=== PATIENT | female | born 1950 | race Caucasian/White ===

== ENCOUNTER → 2018-03-18 12:15 | Outpatient (CLI) | payer MEDICARE, OTHER, SELFPAY ==
--- NOTE | 2018-03-21 18:54 | DI.NM.S_ITS ---
DATE OF SERVICE: 03/18/2018 ORDERING PHYSICIAN: Alexa Morris DO PROCEDURE: Nuclear cardiac stress study. INDICATIONS: Ms. Kimble is a 67-year-old female anticipating hip surgery. Nuclear cardiac stress study is performed to exclude underlying ischemic heart disease in the setting of cardiac risk factors. STRESS TEST: This patient was able to exercise on a regular Ruddy protocol exercising for a total of 6 minutes and 30 seconds. She achieved her expected exercise capacity. Baseline EKG is unremarkable and no clear-cut diagnostic EKG changes of ischemia. PROCEDURE: This patient received 26.9 mCi of technetium-99 Myoview for the stress portion of the examination. She returned 3 days later for the resting portion of the examination receiving an additional 24.7 mCi technetium-99 Myoview. FINDINGS: Raw Data: Raw data images demonstrate overall good image quality. No significant source of artifact or interference. Quantitative Gated SPECT Imaging: Gated exam shows a normal size ventricle with an end-diastolic volume estimated at 73 cc. Overall ejection fraction of normal at 79% with no regional wall motion abnormalities noted. Quantitative Perfusion SPECT Imaging: Myocardial perfusion imaging shows a normal distribution of radioisotope throughout the myocardium. There are no perfusion abnormalities that would suggest ischemia or scar. IMPRESSION: Normal nuclear cardiac stress study. Ledy Kimble - ANNIE/ifrah/ doc#: [id number]/job#: [id number] dd: 03/21/2018 17:37:00 dt: 03/21/2018 18:31:00 DICTATING /COPIES TO: Gallito Ruiz MD COPIES MNE: RIGO
== END ==
PROVIDERS: Family Provider Family Medicine; PCP Family Medicine; Visit Provider Family Medicine
DX: Z01.810 Encounter for preprocedural cardiovascular examination (principal); Z82.49 Family history of ischemic heart disease and other diseases of the circulatory system
CPT/HCPCS: 78452; 93016; 93017; 93018; A9502

== ENCOUNTER → 2018-05-21 12:59 | Outpatient (CLI) | payer MEDICARE, OTHER, SELFPAY ==
[2018-05-21 13:43] LABS: Appearance Urine UA CLEAR; Bilirubin Urine UA NEGATIVE (NEGATIVE); Color Urine UA YELLOW; Glucose Urine UA NEGATIVE (Normal); Ketones Urine UA NEGATIVE (NEGATIVE); Leukocyte Esterase Urine UA NEGATIVE (NEGATIVE); Nitrite Urine UA Negative (Negative); Occult Blood Urine UA NEGATIVE (Negative); Protein Urine UA NEGATIVE (Negative); Specific Gravity Urine UA 1.015 (1.000-1.035); Urobilinogen Urine UA 0.2 E.U./dL (0.2)
[2018-05-21 13:46] LABS: Add Manual Diff / Slide Review NO; Basophils Percent Auto 0.6 % (0-2); Eosinophils Percent Auto 3.8 % (2-4); Hematocrit 43.4 % (36-46); Hemoglobin 15.2 g/dL (12.0-16.0); Lymphocytes Percent Auto 23.9 % (25-40); Mean Corpuscular Volume 94.2 fL (80-100); Monocytes Percent Auto 7.6 % (3-14); Neutrophils Absolute Auto 4300 /uL (3000-5900); Neutrophils Percent Auto 64.1 % (50-75); Platelet Count 232 X10^3/uL (150-400); Red Blood Cell Count 4.61 X10^6/uL (4.0-5.2); Red Cell Distribution Width 12.8 % (11.6-14.8); White Blood Cell Count 6.8 X10^3/uL (4.5-11.0)
[2018-05-21 13:54] LABS: BUN Creatinine Ratio 21.3 (6-22); Blood Urea Nitrogen 17 mg/dL (7-17); Calcium 10.7 mg/dL (8.4-10.2); Carbon Dioxide 33 mmol/L (22-32); Chloride 97 mmol/L (98-107); Estimated Glomerular Filt Rate > 60.0 mL/min (>60); Glucose 96 mg/dL (80-110); HEMOLYSIS < 15 (0-50); Potassium 4.2 mmol/L (3.4-5.1); Sodium 141 mmol/L (137-145)
[2018-05-21 14:14] LABS: Bacteria Urine Occasional (0-1); Hemoglobin A1C% w Est Avg Glu 5.3 % (4.0-6.0); RBC Urine 1-5/HPF (0-5/HPF); Squamous Epithelial Cell Urine 1-5 /HPF; WBC Urine 1-5/HPF (0-5/HPF)
== END ==
PROVIDERS: Family Provider Family Medicine; PCP Family Medicine; Visit Provider Orthopaedic Surgery
DX: Z01.812 Encounter for preprocedural laboratory examination (principal); N39.9 Disorder of urinary system, unspecified; R73.09 Other abnormal glucose
CPT/HCPCS: 36415; 80048; 81001; 83036; 85025; 93005; 93010

== ENCOUNTER 2018-06-03 06:11 | Inpatient (IN) | payer MEDICARE, OTHER, SELFPAY ==
[2018-05-05 09:58] VITALS: BMI 29.3
[2018-06-03] VITALS (19 sets, daily range): BP systolic 78–112; BP diastolic 41–68; PULSE 65–79; RESP 10–16; TEMP 36.1–37.1; O2SAT 92–100; BMI 27.1
[2018-06-03] MEDS: LACTATED RINGERS 1,000 ML 42 ML IV ×2 (06:45→10:34)
[2018-06-03] MEDS: VANCOMYCIN 1,000 MG/200 ML FROZ.PIGGY 200 MG IV (06:46)
[2018-06-03] MEDS: ACETAMINOPHEN 325 MG TABLET 975 MG PO ×3 (07:07→20:26)
[2018-06-03] MEDS: PREGABALIN 75 MG CAPSULE PO (07:08)
[2018-06-03] MEDS: MELOXICAM 7.5 MG TABLET 15 MG PO (07:11)
--- NOTE | 2018-06-03 07:27 | PM.PREOP ---
Pre-operative Note Interval Note Pre-op Check: Yes History & Physical Reviewed by Physician and Yes Exam Performed Changes: No
--- NOTE | 2018-06-03 07:28 | PM.OP.1 ---
Operative Date/Time/Diagnoses Date of procedure: 06/03/18 Time of procedure: 07:56 Pre-op diagnosis: right hip OA Post-op diagnosis: same Procedure & Clinicians Procedure: Right total hip arthroplasty Same procedure as scheduled: Yes Indications: The patient has had progressively worsening right hip pain with radiographic changes consistent with arthritis. Non-operative management has failed and the patient has requested total hip replacement. The risks, benefits and alternatives to surgery were discussed with the patient prior to proceeding. Risks discussed included, but were not limited to, failure to relieve pain, leg length discrepancy, dislocation, stiffness, infection, nerve damage, deep venous thrombosis, pulmonary embolism, stroke, coma, heart attack, permanent paralysis and , as well as the potential need for eventual revision of the prosthetic. Surgeon: Maria G Petty X Ray Tech: Renee Sherwood Anesthesia Type: General and Spinal Operative Notes Findings: severe right hip osteoarthritis, adequate stability Closure Type: primary Specimen(s): none sent Implants & Drains: Petty and Nephew anthology 7 SO, R3 52, +0 oxinium Estimated Blood Loss (mL): 300 Blood products transfused: none Procedure in detail: The patient was brought to the operating room. Patient was carefully positioned in the supine position. Time-out was performed and antibiotics were given. Anesthesia was induced. She was positioned in the on the table in order to allow hyperextension of the hip. Bilateral lower extremities were prepped and draped in a standard sterile fashion. An anterior incision was made 1 fingerbreadth lateral to the anterior superior iliac spine on the right hip and extended distally towards the greater trochanter. Dissection was carried out through skin and subcutaneous tissues. The skin and subcutaneous tissues were carefully injected with Marcaine with epi. Superficial hemostasis was achieved. The fascia over the tensor fascia pancho was defined and incised with a knife. Two Allis clamps were used to grasp the fascia. Tensor fascia pacnho was retracted laterally. A gelpi retractor was placed. Dissection was carried out down along the neck. The circumflex vessels were carefully identified and cauterized with the Aqua Mantis. There was good visualization of the femoral neck. A Cobra was placed superior to the neck and the gluteus fibers were carefully stripped from that superior aspect of the capsule. A 2nd retractor was placed along the inferior aspect of the neck. The rectus insertion along the capsule was released. A 3rd retractor that was then gently placed over the rim of the acetabulum under the rectus. Capsule was carefully incised and released from the intertrochanteric line circumferentially superior to the mid sagittal line and inferiorly to the mid sagittal line until the lesser trochanter was palpable. A tag stitch was placed both in the superior and inferior limb of the capsular insertion. Along the acetabulum capsule was also released up to the mid sagittal 12:00 position. Portion of the labrum was resected. A saw was used to perform an osteotomy at the level of the intertrochanteric line and the junction of the superior femoral neck leaving approximately 1 finger breath of residual inferior neck above the lesser trochanter. A 2nd cut was made along the femoral neck at the base of the head and a napkin ring of neck was removed. Corkscrew was placed in the femoral head and the head was removed without difficulty. Retractors were then repositioned around the acetabulum. Residual labrum was resected and additional osteophytes were removed. A Reamer that was 4 mm below the templated size was placed by hand in the acetabulum and it was reamed to centralize the acetabulum. Was then reamed up to 2 under the templated size fluoroscopy was brought in to confirm the position of the reaming and depth of reaming. I reamed 1 under the anticipated size and touch the rim with line to line reaming. A trial cup was placed and noted that it was appropriately sized and fluoroscopy confirmed position and depth. The component was open and inserted without difficulty fluoroscopic imaging was used to confirm that the cup had been adequately seated and was well positioned. Neutral poly liner was placed. The cup was tested and noted to be stable. Attention was then directed to the femur. The femur was gently hyperextended additional capsular release was performed as needed in order to allow adequate visualization of the proximal femur with elevation of the femur. Patient was placed in a hyperextended slightly abducted position with maximum external rotation. Box osteotome was used to check for any residual neck as well as sclerotic bone along the trochanter. [place] pepper was placed in the femur. Additional broaching was performed. Canal finer was used to determine the alignment of the canal and position. Size 1 broach was placed. The canal was then appropriately broached up to the templated size as long as there was adequate stability of the broach and serial advancement of the broach without excessive impingement. Specific attention was directed at avoiding varus attempting to direct the distal aspect of the approach more anteriorly and avoiding excessive anteversion. Trial reduction showed acceptable range of motion, good stability, no posterior impingement, pentecostal of leg length and appropriate lateral shuck. I also hyperflexed the hip and checked that there was no impingement anteriorly and there was good stability with flexion, abduction and internal rotation. Final neutral poly was placed without difficulty. Marcaine and Exparel were injected. The stem was placed without difficulty. Repeat trial reduction and x-ray showed acceptable overall position, length, and no evidence of the femoral fracture. Final head was placed. Wound was meticulously irrigated with normal saline. The hip was reduced and additional Exparel and Marcaine were injected. The capsule was closed with interrupted black braided nylon. The fascia of the tensor was closed with interrupted and running Vicryl. No drain was placed. Any tensor fascia pancho muscle that appeared to be contused or injured which was a minimal amount was carefully resected. Capsule around the tensor was injected with Exparel and Marcaine. The skin was closed with barbed stitches for the subcutaneous tissue and skin. We also used surgical glue. The wound was dressed sterilely. Brief Betadine soak was also used and was meticulously irrigated with normal saline. Patient was transferred to recovery room in satisfactory condition. Complications: none Condition: stable Disposition: Acute Care Plan for aftercare: The patient will be maintained on a standard total hip replacement protocol with weight bearing as tolerated and posterior hip precautions. The patient will receive aspirin and sequential compression devices for DVT prophylaxis. The patient will be discharged home when safe for the home environment.
[2018-06-03] MEDS: CEFAZOLIN 2 GM/100 ML FROZ.PIGGY IV ×2 (08:19→16:49)
[2018-06-03] MEDS: TRANEXAMIC ACID 1,000 MG VIAL 2000 MG INJ (08:20)
[2018-06-03] MEDS: BUPIVACAINE 0.25% W/ EPI VIAL 50 ML INJ (08:49)
[2018-06-03] MEDS: BUPIVACAINE LIPOSOME 266 MG/20 ML VIAL INJ (08:50)
[2018-06-03] MEDS: LIDOCAINE 1% W/EPI INJ 20 ML INJ (08:52)
--- NOTE | 2018-06-03 08:57 | SUR.OPER ---
Supine, head on pillow, torso on pink pad positioner. Iliac crest at flex of foot end of table. Gel roll under operative hip. Both arms secured on arm boards <90 degrees abduction.
--- NOTE | 2018-06-03 11:38 | DI.RAD.S_ITS ---
PROCEDURE: XR HIP W PEL IF DONE RT 2V INDICATIONS: RIGHT TOTAL HIP TECHNIQUE: AP pelvis and lateral view of the right hip acquired. COMPARISON: [facility], CR, [id number] W PEL IF PERFORMED, 01/21/2018, 11:23. FINDINGS: Bones: Patient is status post right hip arthroplasty, with hardware components in expected positions. The hip joint appears congruent. The visualized bony structures appear intact. Soft tissues: Overlying postoperative changes are noted. No suspicious soft tissue densities. IMPRESSION: Postop changes from right total hip arthroplasty with anatomic alignment. Dictated by: Clay Alfaro M.D. on 06/03/2018 at 13:40 Approved by: Clay Alfaro M.D. on 06/03/2018 at 13:40
[2018-06-03] MEDS: ONDANSETRON 4 MG/2 ML INJ IV (12:29)
[2018-06-03] MEDS: HYDROMORPHONE 2 MG INJ 0.5 MG IV ×2 (12:35→12:40)
[2018-06-03] MEDS: METOCLOPRAMIDE 10 MG/2 ML INJ IV (12:40)
[2018-06-03] MEDS: LACTATED RINGERS 500 ML 1000 ML IV (14:23)
[2018-06-03] MEDS: LACTATED RINGERS 1,000 ML 125 ML IV ×2 (14:24→22:49)
[2018-06-03] MEDS: OXYCODONE IR 5 MG TABLET PO ×2 (14:29→21:52)
[2018-06-03] MEDS: HYDROMORPHONE 2 MG TABLET PO ×3 (15:30→22:50)
--- NOTE | 2018-06-03 15:31 | PC.NURSE ---
Pts bp dropped to 78/50s. Called and Dr. Soriano gave orders for LR bolus of 500cc. Pts blood pressure then up to 103/56. She is A&ox3 and states pain is a 9/10. Pt was extremely groggy after coming from PACU and with BP being low, this RN discussed pain manangement with Coordinator and we decided that it would be best to wait until patient was more awake and bp up before giving her any narcotics. Pt was given 5mg of oxycodone about an hour ago and she states that this did not help her. Ángela PEREZ into see patient and she is working on giving pt some other pain medication as oxycodone does not seem to be helping her. Dressing to R.knee is cdi and pt has feeling to her whole leg. She is also on LR at 125cc/hr and tolerating fluids well. Pt was initially having nausea earlier in pacu and was given compazine. She tolerated crackers and her water. Gave the percolone to patient and she did tolerate well. Luisa PEREZ float, called and got orders for dialaudid and she has been given this. at bedside.
--- NOTE | 2018-06-03 16:56 | PT.IIE ---
Current Diagnoses Unilateral primary osteoarthritis, right hip (06/03/18) Surgery Performed Operation Date: 06/03/18 07:45 Actual Procedures p Total Hip Arthroplasty/Anterior Approach(Right) - Maria G Petty MD Surgical History (Last Updated 05/05/18 @ 10:10 by Velia Diehl RN) S/P cervical spinal fusion (Acute) History of spinal fusion (03/17/17) History of tonsillectomy Status post hysterectomy Status post rotator cuff repair Medical History (Last Updated 05/03/18 @ 08:52 by Alexa Morris DO) Internal hemorrhoids without complication (Chronic) Diverticulosis of colon without diverticulitis (Chronic) Mild intermittent asthma without complication (Chronic 09/27/15) Bipolar disorder in full remission (Inactive 08/02/15) Herpes simplex of female genitalia (Inactive 08/02/15) Obstructive sleep apnea syndrome in adult (Chronic 2004) Body mass index (BMI) of 25.0 to 29.9 (Chronic 11/11/15) Left ventricular diastolic dysfunction with preserved systolic function (Chronic 11/11/15) Mixed hyperlipidemia (Chronic 11/04/16) Insomnia, persistent (Inactive) Physical Therapy Inpatient Evaluation/Re-Eval M1 PT/OT-IP Prior Functional Status Start: 06/03/18 17:46 Freq: NEEDED Status: Active Protocol: Document 06/03/18 16:56 AB (Rec: 06/03/18 18:01 AB [id number]) Medical Review Prior Functional Status Medical History Reviewed Yes Communication able to make needs known Mobility and Gait stated that she is modified independent with all mobilities and ambulation wihtout AD Social History Household Members spouse Living Arrangements House Number of Floors (Floors) One Floor Number of Stairs To Enter/Railing? 2 steps to enter with bilateral wide rails and can only hold on to one at a time Home Environment High Toilet Walk in Shower Built-In Shower Seat Home Equipment Front Wheel Walker Straight Cane Raised Toilet Seat w/Armrests Grab Bars In Shower Employment Status Retired M2 PT-IP Current Condition Start: 06/03/18 17:46 Freq: NEEDED Status: Active Protocol: Document 06/03/18 16:56 AB (Rec: 06/03/18 18:01 AB [id number]) Physical Therapy Current Condition Current Condition Evaluation Date 06/03/18 Treatment Diagnosis s/p R KENY Onset Date 06/03/18 Weight Bearing Status Weight Bearing Status Weight Bear as Tolerated M3 PT-IP Subjective Start: 06/03/18 17:46 Freq: NEEDED Status: Active Protocol: Document 06/03/18 16:56 AB (Rec: 06/03/18 18:01 [id number]) Subjective Physical Therapy Visit Type Type Initial Evaluation Visit Start Time 16:56 Visit Stop Time 17:36 Total Visit Minutes 40 Notes reviewed pt's chart and per doctor's surgery note, pt has r posterior hip precautions but on plan of care: anterior hip precautions ordered. informed nurse to clarify with doctor and nurse stated that pt definitely has anterior KENY done. Number of PEDIATRIC ALLERGIST Visits 0 Physical Therapy Visit Comments Patient Comments pt initially not feeling well and nurse stated that pt has decrease BP and c/o increase pain and drowsy. checked on pt again after ~ 45 min and pt stated that she is feeling better and agreed to get out of bed. Therapy Pain Assessment Pain When Pain Assessed At Rest Pain Present Pain Present Pain Reported Location Right Hip Intensity 5 Scale Used Numeric (1 - 10) Pain Management Techniques Apply Cold Re-positioning Timing of Activity with Medications M4 PT-IP Mobility and Gait Start: 06/03/18 17:46 Freq: NEEDED Status: Active Protocol: Document 06/03/18 16:56 AB (Rec: 06/03/18 18:01 [id number]) PT-Bed Mobility Assessment Supine to Sit Supine to Sit Minimal Assistance Sit to Supine Sit to Supine Minimal Assistance Moderate Assistance PT-Transfer Assessment Comments Mobility Comments BP in supine: 107/51 pt completed supine to sit min A and cues. pt positioned on EOB. pt with c/o feeling queasy. pt sat on EOB for~ 20 sec and stated that she has to lie down. BP in sitting on EOB: 85/63 GA 139. assisted pt back in bed requiring min to mod A and cues. pt required assistance to move RLE in bed. BP in supine: 118/57 GA 65 O2 sa 97% . pt unable to tolerate further activities. positioned pt in bed with dinner. informed nurse. call light and table set up for pt. PT-Balance Assessment Sitting Balance and Reactions Static Sitting Balance Ability Good Dynamic Sitting Balance Ability Good M5 PT-IP Objective Assessments Start: 06/03/18 17:46 Freq: NEEDED Status: Active Protocol: Document 06/03/18 16:56 AB (Rec: 06/03/18 18:01 AB [id number]) Orientation Orientation/Cognition Level of Alertness Alert Orientation Name Age Birthday Month Date Year Day of Week Place Situation Safety Awareness Decreased Safety Awareness Memory Description Short Term Impaired Gross Range of Motion Lower Extremity ROM Assessment Right Impaired Strength Lower Extremity Strength Assessment Right Impaired Hip 3-/5 Muscle Tone Muscle Tone WNL Yes M6 PT-IP Treatment Start: 06/03/18 17:46 Freq: NEEDED Status: Active Protocol: Document 06/03/18 16:56 AB (Rec: 06/03/18 18:01 AB [id number]) Physical Therapy Treatment Education Education Provided Precautions Weight Bearing Status Post-Op Packet Safety M7 PT-IP Assessment and Plan Start: 06/03/18 17:46 Freq: NEEDED Status: Active Protocol: Document 06/03/18 16:56 AB (Rec: 06/03/18 18:01 AB [id number]) PT Summary Assessment and Plan Potential Rehabilitation Potential Fair Status of Condition at Evaluation Evolving Summary Impairments Pain ROM Strength Balance Coordination Sensation Tone Cognition Bed Mobility Transfers Gait Activity Tolerance Assessment Summary pt requiring one person assist with bed mobility; unable to complete transfer or ambulation due to c/o dizziness and queasiness. d/c plan depending on progress and if spouse will be able to provide the assistance pt needs. will continue to assess. Goals Bed Mobility Goal Standby Assistance Transfer Goal Standby Assistance Gait Goal Standby Assistance Gait Distance 100 Other Goals up/down 2 steps using 1 rail Days to Meet Goals 3 Frequency of Treatment Frequency Of Treatment Twice a Day Treatment Plan Physical Therapy Treatment Plan Bed Mobility Training Transfer Training Gait Training Therapeutic Exercise Balance Retraining Post Op Education Discharge Planning Hot or Cold Pack Neuromuscular Re-ed Coordination Retraining Manual Therapy Recommendations To Nursing Amount of Assist Needed 2 Person Assist Discharge Recommendations PT Discharge Recommendations Home with Assistance Outpatient PT
[2018-06-03] MEDS: NAPROXEN 250 MG TABLET PO (20:25)
[2018-06-03] MEDS: ASPIRIN EC 81 MG TABLET PO (20:25)
[2018-06-03] MEDS: SIMVASTATIN 10 MG TABLET PO (20:25)
[2018-06-03] MEDS: DOCUSATE 100 MG CAPSULE PO (20:26)
[2018-06-03] MEDS: diphenhydrAMINE 25 MG TABLET 50 MG PO (20:26)
[2018-06-04] VITALS (7 sets, daily range): BP systolic 99–114; BP diastolic 47–55; PULSE 76–89; RESP 16–22; TEMP 36.5–37.2; O2SAT 92–98
[2018-06-04] MEDS: OXYCODONE IR 5 MG TABLET PO ×2 (00:55→05:01)
[2018-06-04] MEDS: CEFAZOLIN 2 GM/100 ML FROZ.PIGGY IV (00:56)
[2018-06-04] MEDS: HYDROMORPHONE 2 MG TABLET PO ×4 (02:22→22:39)
[2018-06-04] MEDS: ONDANSETRON 4 MG/2 ML INJ IV (03:12)
[2018-06-04] MEDS: ACETAMINOPHEN 325 MG TABLET 975 MG PO ×3 (05:06→20:52)
[2018-06-04 05:25] LABS: Hematocrit 29.7 % (36-46); Hemoglobin 10.5 g/dL (12.0-16.0)
--- NOTE | 2018-06-04 05:31 | PC.NURSE ---
assumed care of pt from outgoing shift at 2300 8-24. Pt asleep. does want to be woken up for pain med administration. see DEC. bed alarm on, side rails upx3. belongings and call light within reach. will continue to monitor 0030- pt woken, needing to toilet, will give pain med when due. antibiotic hung and infusing, no adr. Pt compliant. pt needs help moving leg over off bed, but is able to stand, uses walker without difficulty. states pain is well controlled and wants to stay on top of it. Pt stated that she knows the already has the oxycodone at home, but wonders if she could get the Dilaudid as well as that really helps take the pain away quickly. Pt told to discuss with MD. will pass on. Pt does use call light and waits for assistacne. ice aplied to site. see assessment. Pt scd on. pt ate snack with pain med. will continue to monitor. 0230- pt given pain med. stated pain was higher than usually but not terrible. 0315- pt complaining of nausea, given zofran IV. will reassess. 0330- pt stated nausea was gone and felt better. pt on cpap, allowed to fall back to sleep. 0500- pt called for pain med and toileting. will continue to monitor.
--- NOTE | 2018-06-04 08:43 | P.PN_ITS ---
Subjective Date Patient Seen: 06/04/18 Time Patient Seen: 07:22 Interval history: Post op day 1 status post Right total hip arthroplasty with Dr. Petty. Patient is laying in bed comfortably without any signs of distress. Patients reports her pain is a 4/10. She is being managed with 2mg Dilaudid and 5mg Percolone. Patient would like more pain meds at this time. Patient reports being mobilized with PT however she has not ambulated outside of the room. Patient reports she is eager to go home once she has been able to walk the halls. is home to assist her. Patient denies fever, chills, vomiting, chest pain or respiratory distress. Overall, patient reports that she is feeling much better compared to yesterday. Exam Vital Signs (past 8 hours): - 06/04/18 03:15 06/04/18 08:16 Temperature 97.7 F 97.9 F Pulse Rate 76 79 Respiratory Rate 18 16 Blood Pressure 99/50 L 110/54 L Pulse Oximetry 95 98 Oxygen Delivery Method CPAP Oxygen Flow Rate 0 Narrative Exam Narrative: Patient is AOx3. Patient appears as a well developed woman in no acute distress. R hip dressing is CDI. Dorsalis pedis and radial pulses are 2 + and symmetric. Sensation to LE intact to light touch bilaterally and muscle strength is adequate. No signs of neurological deficit noted. Calfs are non tender, soft and compressible bilaterally Objective Labs Result Diagrams: 06/04/18 05:06 Labs: Laboratory Results - last 24 hr 06/04/18 05:06 Hgb 10.5 L Hct 29.7 L Assessment & Plan Post-op Postoperative Procedures Operation Date: 06/03/18 07:45 Actual Procedures Side Surgeon p Total Hip Arthroplasty/Anterior Approach Right Maria G Petty MD Postoperative day: 1 Postoperative status: doing well Postoperative plan: routine post-op care and ambulate Postoperative plan narrative: Continue mobilizing and ambulating with PT. Remain on standard total hip replacement protocol with weight bearing as tolerated and posterior hip precautions. Continue with DVT prophylaxis. Patient would like to go home later today pending cleared by PT. Discontinue percolone and increase Dilaudid from 2mg to 4mg for pain management. Time Spent With Patient less than 15 minutes Quality VTE Deep Vein Thrombosis/Pulmonary Embolism Present on Admission: No
[2018-06-04] MEDS: HYDROMORPHONE 2 MG TABLET 4 MG PO (08:47)
[2018-06-04] MEDS: DOCUSATE 100 MG CAPSULE PO ×2 (08:49→20:52)
[2018-06-04] MEDS: FISH OIL 1,000 MG CAPSULE 1000 MG PO (08:49)
[2018-06-04] MEDS: ASPIRIN EC 81 MG TABLET PO ×2 (08:49→20:52)
[2018-06-04] MEDS: SODIUM CHLORIDE 0.9% FLUSH 10 ML IV ×2 (08:49→20:52)
--- NOTE | 2018-06-04 09:15 | PT.IPTN ---
Current Diagnoses Unilateral primary osteoarthritis, right hip (06/03/18) Surgery Performed Operation Date: 06/03/18 07:45 Actual Procedures p Total Hip Arthroplasty/Anterior Approach(Right) - Maria G Petty MD Physical Therapy Treatment Note M2 PT-IP Current Condition Start: 06/03/18 17:46 Freq: NEEDED Status: Active Protocol: Document 06/03/18 16:56 AB (Rec: 06/03/18 18:01 AB [id number]) Physical Therapy Current Condition Current Condition Evaluation Date 06/03/18 Treatment Diagnosis s/p R KENY Onset Date 06/03/18 Weight Bearing Status Weight Bearing Status Weight Bear as Tolerated M3 PT-IP Subjective Start: 06/03/18 17:46 Freq: NEEDED Status: Active Protocol: Document 06/04/18 09:15 AB (Rec: 06/04/18 11:33 AB [id number]) Subjective Physical Therapy Visit Type Type Treatment Note Visit Start Time 09:15 Visit Stop Time 11:07 Total Visit Minutes 25 Notes pt was seen for split tx due to BP issues 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 Physical Therapy Visit Comments Patient Comments pt agreeable to do therapy; requested to use the toilet Therapy Pain Assessment Pain When Pain Assessed At Rest Pain Present Pain Present Pain Reported Location Right Hip Intensity 7 Scale Used Numeric (1 - 10) Pain Management Techniques Apply Cold Re-positioning Timing of Activity with Medications M4 PT-IP Mobility and Gait Start: 06/03/18 17:46 Freq: NEEDED Status: Active Protocol: Document 06/04/18 09:15 AB (Rec: 06/04/18 11:33 AB [id number]) PT-Transfer Assessment Sit to and From Stand Sit to and from Stand Minimal Assistance Equipment Transfer Assistive Device Gait Belt Front Wheeled Walker Orthotic/Prosthetic Devices or Brace: No Transfers Transfer Destination Chair Transfer Technique Stand Step Pivot Transfer Ability Level of Assist Minimal Assistance Comments Mobility Comments checked on pt this morning and requesting to use bedside commode. BP checked in supine : R arm: 85/47 K arnL 107/44. informed nurse. pt educated on safety. Checked on pt again and pt transferring with NAC to bedside commode. pt c/o dizziness sitting bedside commode. BP: 117/60. Assist pt out of the commode requiring min A with sit to stand and completed step transfer using FWW min A and cues. pt c/o dizziness and nausea during transfers. BP checked after transfer. BP sitting on chair: 98/51. checked BP again after 3 min: 99/51. pt continues to c/o dizziness and nausea. reclined and positioned pt on chair. BP at end of tx session : 111/50. call light and table placed within reach. informed nurse regarding BP. Gait Assessment Comments Gait Comments unable to ambulate at this time due to decrease in BP and c/o dizziness and nausea with transfers. M5 PT-IP Objective Assessments Start: 06/03/18 17:46 Freq: NEEDED Status: Active Protocol: Document 06/03/18 16:56 AB (Rec: 06/03/18 18:01 AB [id number]) Orientation Orientation/Cognition Level of Alertness Alert Orientation Name Age Birthday Month Date Year Day of Week Place Situation Safety Awareness Decreased Safety Awareness Memory Description Short Term Impaired Gross Range of Motion Lower Extremity ROM Assessment Right Impaired Strength Lower Extremity Strength Assessment Right Impaired Hip 3-/5 Muscle Tone Muscle Tone WNL Yes M6 PT-IP Treatment Start: 06/03/18 17:46 Freq: NEEDED Status: Active Protocol: Document 06/04/18 09:15 AB (Rec: 06/04/18 11:33 AB [id number]) Physical Therapy Treatment Education Education Provided Precautions Weight Bearing Status Post-Op Packet Safety M7 PT-IP Assessment and Plan Start: 06/03/18 17:46 Freq: NEEDED Status: Active Protocol: Document 06/04/18 09:15 AB (Rec: 06/04/18 11:33 AB [id number]) PT Summary Assessment and Plan Potential Rehabilitation Potential Fair Summary Impairments Pain ROM Strength Balance Cognition Bed Mobility Transfers Gait Activity Tolerance Progress Towards Goals Slow Progress due to Medical Issues Assessment Summary pt requiring one person assist with transfers. continues to have decrease activity tolerance with decrease in BP with upright activities affecting mobility/ambulation. will continue to assess pt but at this time has not shown consistency with mobility function to be able to go home . Goals Bed Mobility Goal Standby Assistance Transfer Goal Standby Assistance Gait Goal Standby Assistance Gait Distance 100 Other Goals up/down 2 steps using 1 rail Days to Meet Goals 3 Frequency of Treatment Frequency Of Treatment Twice a Day Treatment Plan Physical Therapy Treatment Plan Bed Mobility Training Transfer Training Gait Training Therapeutic Exercise Balance Retraining Post Op Education Discharge Planning Hot or Cold Pack Neuromuscular Re-ed Coordination Retraining Manual Therapy Recommendations To Nursing Amount of Assist Needed 1 Person Assist Discharge Recommendations PT Discharge Recommendations Home with Assistance Outpatient PT
[2018-06-04] MEDS: LACTATED RINGERS 500 ML 1000 ML IV (09:42)
[2018-06-04] MEDS: ONDANSETRON 4 MG ODT PO (10:33)
--- NOTE | 2018-06-04 12:04 | P.DS_ITS ---
History of Present Illness Chief complaint: [id number] Narrative: Patient was scheduled to be discharged on 06/04/18 however due to nausea and light headedness patient was held over night. Patient was stable and ready for discharge on 06/05/18. Post op day 1 status post Right total hip arthroplasty with Dr. Petty. Patient is laying in bed comfortably without any signs of distress. Patients reports her pain is a 4/10. She is being managed with 2mg Dilaudid and 5mg Percolone. Patient would like more pain meds at this time. Patient reports being mobilized with PT however she has not ambulated outside of the room. Patient reports she is eager to go home once she has been able to walk the halls. is home to assist her. Patient denies fever, chills, vomiting, chest pain or respiratory distress. Overall, patient reports that she is feeling much better compared to yesterday. Discharge Providers Date of admission: 06/03/18 06:11 Primary care physician: Alexa Morris DO Consults: 06/03/18 13:45 Consult to Discharge Planning Routine Comment: Consult to Physical Therapy Evaluate & Treat Comment: oob today Physician Instructions: post op KENY protocol Consult to Respiratory Therapy Evaluate & Treat Comment: Physician Instructions: Evaluate and treat 06/04/18 10:28 Consult to Occupational Therapy Evaluate & Treat Comment: Physician Instructions: Evaluate and treat Discharge provider: Alison Gudino PA-C Summary Discharge Diagnosis: Right total hip arthroplasty Hospital Course: Patient admitted to hospital for the above mentioned procedure. Patient tolerated procedure well. Pain is well managed. Patient is home to assist her. Status at Discharge Functional status at discharge: uses cane/walker Overall status at discharge: patient is progressing back to baseline Time Spent with Patient Less than 30 minutes Exam Vital Signs (past 8 hours): - 06/04/18 08:16 Temperature 97.9 F Pulse Rate 79 Respiratory Rate 16 Blood Pressure 110/54 L Pulse Oximetry 98 Oxygen Delivery Method CPAP Oxygen Flow Rate 0 Narrative Exam Narrative: Patient is AOx3. Patient appears as a well developed woman in no acute distress. R hip dressing is CDI. Dorsalis pedis and radial pulses are 2 + and symmetric. Sensation to LE intact to light touch bilaterally and muscle strength is adequate. No signs of neurological deficit noted. Calfs are non tender, soft and compressible bilaterally Objective Labs Result Diagrams: 06/05/18 05:06 Labs: Laboratory Results - last 24 hr 06/04/18 05:06 Hgb 10.5 L Hct 29.7 L Discharge Plan Discharge Plan Patient Disposition: Home Discharge comment: home today Discharge Med Rec/Prescriptions Prescriptions: New polyethylene glycol 3350 17 gram Powder In Packet 17 gm PO DAILY PRN (Reason: Constipation) Qty: 30 RF: 0 aspirin 81 mg Tablet,Delayed Release (Dr/Ec) 81 mg PO BID Qty: 60 RF: 0 hydromorphone 2 mg Tablet 2 mg PO Q4HR PRN (Reason: Pain, Moderate (4-6)) Qty: 40 RF: 0 ferrous sulfate 325 mg (65 mg iron) Tablet 325 mg PO BIDWM Qty: 60 RF: 0 Continue simvastatin 10 MG tablet 10 mg PO HS Qty: 90 RF: 3 estradiol [Estrace] 0.01 % (0.1 mg/gram) cream 1 gram Vaginal 2XW Qty: 1 RF: 6 albuterol sulfate [Ventolin HFA] 90 mcg/actuation Hfa Aerosol Inhaler 2 puff INHALATION Q4-6H PRN (Reason: exercised induced asthma) RF: 0 diphenhydramine-acetaminophen [Tylenol PM Extra Strength] 25-500 mg Tablet 2 tab PO BEDTIME RF: 0 naphazoline-pheniramine [Opcon-A] 0.33263-1.315 % Drops 1 drp EYE-BOTH PRN PRN (Reason: allergies) RF: 0 naproxen sodium 220 mg Capsule 220 mg PO BEDTIME RF: 0 aspirin 81 mg Tablet,Delayed Release (Dr/Ec) 81 mg PO DAILY RF: 0 omega 9-kfg-pji-fish oil [Fish Oil] 1,000 mg (120 mg-180 mg) Capsule 1 tab PO DAILY RF: 0 bfjtxnan-hwn-himdu acid-vit K [Multi For Her 50 Plus] 400-80 mcg Capsule 1 tab PO DAILY RF: 0 Follow up/Referrals: Alexa Morris DO [Primary Care Provider] - Provider Discharge Instructions Diet: Diet as Tolerated Activity: maintained on a standard total hip replacement protocol with weight bearing as tolerated and anterior hip precautions Cold/Heat Therapy: ice 3 times or more per day Skin/Wound/Dressing Care Report to your healthcare provider any signs of infection, such as:: chills, fever, night sweats, increased pain and unusual drainage Dressing: Keep dressing clean and dry. Visit Report/Discharge Packet Instructions: DI for Hip Replacement Visit Report Forms: Stroke Signs & Symptoms Discharge Data Primary Care Provider: Alexa Morris Attending Provider: Maria G Petty Admit Date/Time: 06/03/18 06:11 Discharges patient from system. Discharge Date/Time: 06/05/18 14:45 Quality VTE Deep Vein Thrombosis/Pulmonary Embolism Present on Admission: No
--- NOTE | 2018-06-04 12:37 | CM.DANOTE ---
Discharge Planning/Care Management DCP: assessment: case received, EMR reviewed and met this morning with pt and her . Introduced self and role. Pt is a 67 year old female who admitted yesterday for a planned KENY. Surgeon: Dr. Katlyn Petty Payer: Medicare and [employer]. PT and OT are seeing pt. Pt confirmed that her plan is for home with her 's prn support and OUTPT PT. Ortho team did see her later in day and wrote a d/c to home order. Conferred now with ANA James. She reports (as does PT) that pt having ongoing issues with dizziness, nausea and low BP. Pt is post op day one. The d/c for today has now been cancelled. Will check in again tomorrow prn...anticipating that pt will be fine for d/c to home once her medical symtoms are controlled and she is able to work a bit more with therapy. CM Discharge Assessment Start: 06/04/18 12:34 Freq: Status: Active Protocol: Document 06/04/18 12:34 ITV (Rec: 06/04/18 12:37 ITV [id number]) Discharge Planning Assessment Advance Directives? Yes Advance Directives on File No History Provided By Patient Family Member Medical Record Prior Living Arrangements House Household Members spouse Comment pt here to be part of caregiver training Independent with ADL's Yes Is patient alert and oriented? Yes Comment pt has all dme in place...I planned well for this surgery Patient/Family Preference OP PT Therapy Comment pt has appt next Wednesday with local PT clinic. will see Joe Flores PT Whiteboard Updated in Patient Room with Yes name and ext. # of [employer] Analyst Review Status In Process Next Review Type Continued Stay Review
--- NOTE | 2018-06-04 12:42 | OT.IP.TRT ---
Current Diagnoses Unilateral primary osteoarthritis, right hip (06/03/18) Surgery Performed Operation Date: 06/03/18 07:45 Actual Procedures p Total Hip Arthroplasty/Anterior Approach(Right) - Maria G Petty MD Occupational Therapy Treatment Note M3 OT- IP Subjective and Pain Start: 06/04/18 12:39 Freq: Status: Active Protocol: Document 06/04/18 12:39 [facility] (Rec: 06/04/18 12:42 [facility] [id number]) OT- Subjective Occupational Therapy Visit Type Type Treatment Note Visit Start Time 12:20 Visit Stop Time 12:35 Total Visit Minutes 15 Notes Pt feeling nauseous and BP 115 /46 while lying back in recliner and then sitting up 107/71. Able to answer questions regarding ADL needs, pt has all OT AED , and supportive . Pt to go home when medically stable.
--- NOTE | 2018-06-04 12:47 | PC.NURSE ---
Pt will not be discharging home today as she is still having some nausea and low bp. We will try 2mg of po dilaudid only per leighton Gudino to see if this helps keep bp up. PA wondering if 4mg of dilaudid making pressures lower. She is A&ox3 and moving with 1PA to commode. Visiting with now.
--- NOTE | 2018-06-04 14:00 | PT.IPTN ---
Current Diagnoses Unilateral primary osteoarthritis, right hip (06/03/18) Surgery Performed Operation Date: 06/03/18 07:45 Actual Procedures p Total Hip Arthroplasty/Anterior Approach(Right) - Maria G Nascimento MD Physical Therapy Treatment Note M2 PT-IP Current Condition Start: 06/03/18 17:46 Freq: NEEDED Status: Active Protocol: Document 06/04/18 14:00 AB (Rec: 06/04/18 14:59 AB [email or web address]) Physical Therapy Current Condition Current Condition Evaluation Date 06/03/18 Treatment Diagnosis s/p R KENY Onset Date 06/03/18 Precautions Anterior Hip Precautions No Hip Extension No Hip External Rotation Other Precautions clarified again with PA and PA clarified with Dr. nascimento that pt has anterior hip precautions. Weight Bearing Status Weight Bearing Status Weight Bear as Tolerated M3 PT-IP Subjective Start: 06/03/18 17:46 Freq: NEEDED Status: Active Protocol: Document 06/04/18 14:00 AB (Rec: 06/04/18 14:59 AB [email or web address]) Subjective Physical Therapy Visit Type Type Treatment Note Visit Start Time 14:00 Visit Stop Time 14:36 Total Visit Minutes 36 Number of MANAGEMENT PROFESSOR Visits 0 Physical Therapy Visit Comments Patient Comments Pt agreeable to do PT Therapy Pain Assessment Pain When Pain Assessed At Rest Pain Present Pain Present Pain Reported Location Right Hip Intensity 7 Scale Used Numeric (1 - 10) Pain Management Techniques Apply Cold Re-positioning Timing of Activity with Medications M4 PT-IP Mobility and Gait Start: 06/03/18 17:46 Freq: NEEDED Status: Active Protocol: Document 06/04/18 14:00 AB (Rec: 06/04/18 14:59 AB [email or web address]) PT-Bed Mobility Assessment Supine to Sit Supine to Sit Standby Assistance Bedrails Sit to Supine Sit to Supine Minimal Assistance PT-Transfer Assessment Sit to and From Stand Sit to and from Stand Minimal Assistance Moderate Assistance Equipment Transfer Assistive Device Gait Belt Front Wheeled Walker Orthotic/Prosthetic Devices or Brace: No Transfers Transfer Destination Bed Bedside Commode Transfer Technique Stand Step Pivot Transfer Ability Level of Assist Minimal Assistance 1 Person Assistance Use of Upper Extremities Comments Mobility Comments BP monitored during activity. supine at start of tx: 114/52. pt completed supine to sit SBA but used bed rails to assist. pt was able to sit on EOB for ~ 4 min with c/o dizziness. BP after 2 min of sitting on EOB: 109/50. Pt completed sit to stand mod A and cues and stood up for ~2 min with c/o dizziness. BP in standin/51. pt instructed to sit back down. pt rested and requested to use the commode. BP after 2 min rest: 101/44. Assisted pt with bedside commode transfer and completed min to mod A and cues using FWW. BP sitting on commode prior to transfer back to bed: 103/46. pt transferred back to bed stand step transfer using FWW min to mod A and cues. pt completed bed mobility supine to sit min A and pt used safety belt to assist with RLE movement. positioned pt in bed. BP in supine at end of tx: 103/54. informed nurse. pt continues to c/o dizziness and nausea with change in position. M5 PT-IP Objective Assessments Start: 06/03/18 17:46 Freq: NEEDED Status: Active Protocol: Document 06/03/18 16:56 AB (Rec: 06/03/18 18:01 AB [id number]) Orientation Orientation/Cognition Level of Alertness Alert Orientation Name Age Birthday Month Date Year Day of Week Place Situation Safety Awareness Decreased Safety Awareness Memory Description Short Term Impaired Gross Range of Motion Lower Extremity ROM Assessment Right Impaired Strength Lower Extremity Strength Assessment Right Impaired Hip 3-/5 Muscle Tone Muscle Tone WNL Yes M6 PT-IP Treatment Start: 06/03/18 17:46 Freq: NEEDED Status: Active Protocol: Document 06/04/18 14:00 AB (Rec: 06/04/18 14:59 AB [email or web address]) Physical Therapy Treatment Education Education Provided Safety M7 PT-IP Assessment and Plan Start: 06/03/18 17:46 Freq: NEEDED Status: Active Protocol: Document 06/04/18 14:00 AB (Rec: 06/04/18 14:59 AB [email or web address]) PT Summary Assessment and Plan Potential Rehabilitation Potential Fair Summary Impairments Pain ROM Strength Balance Tone Cognition Bed Mobility Transfers Gait Activity Tolerance Progress Towards Goals Slow Progress due to Medical Issues Assessment Summary pt continues to be limited with mobility with c/o dizziness and nausea with change in position and decrease in BP with more upright activities. pt unable to tolerate much activity and unable to ambulate at this time but was able to transfer bed<>bedside commode. will continue to assess pt's mobility for d/c plan. Goals Bed Mobility Goal Standby Assistance Transfer Goal Standby Assistance Gait Goal Standby Assistance Gait Distance 100 Other Goals up/down 2 steps using 1 rail Days to Meet Goals 3 Frequency of Treatment Frequency Of Treatment Twice a Day Treatment Plan Physical Therapy Treatment Plan Bed Mobility Training Transfer Training Gait Training Therapeutic Exercise Balance Retraining Post Op Education Discharge Planning Hot or Cold Pack Neuromuscular Re-ed Coordination Retraining Manual Therapy Recommendations To Nursing Amount of Assist Needed 1 Person Assist Discharge Recommendations PT Discharge Recommendations Home with Assistance Outpatient PT
[2018-06-04] MEDS: SIMVASTATIN 10 MG TABLET PO (20:52)
[2018-06-04] MEDS: NAPROXEN 250 MG TABLET PO (20:52)
[2018-06-04] MEDS: diphenhydrAMINE 25 MG TABLET 50 MG PO (20:52)
--- NOTE | 2018-06-05 01:17 | PC.NURSE ---
Addendum entered by Arti Pettit R.N. 06/05/18 04:02: 0355- pt awake, asking for pain meds. given. crackers and water also given. will continue to monitor. Original Note: Assumed care of pt from outgoing shift at 2300 8-25. PT asleep at this time. cpap on, call light and belongings within reach. will continue to monitor. 2320- pt awake, vss - bp has been low, but consistently in 100 systolic. Pt stated pain was 2/10. discussed pain med options and plan for noc. pt verbalized understanding. Pt uses call light. waits for assistance. 0100- Pt up to br to void, then sitting up in chair. Pt did very well with ambulation. Pt had minimal pain. denies sob.nausea. Pt uses call light. belongings and call light within reach. will continue to monitor.
[2018-06-05 03:00] VITALS: BP 112/59; PULSE 72; RESP 18; TEMP 36.8; O2SAT 98
[2018-06-05] MEDS: HYDROMORPHONE 2 MG TABLET PO ×3 (03:57→12:46)
[2018-06-05] MEDS: ACETAMINOPHEN 325 MG TABLET 975 MG PO (05:22)
[2018-06-05 05:36] LABS: Hemoglobin 9.8 g/dL (12.0-16.0)
[2018-06-05 08:06] VITALS: BP 99/45; PULSE 81; RESP 16; TEMP 36.6; O2SAT 97
[2018-06-05] MEDS: ASPIRIN EC 81 MG TABLET PO (08:48)
[2018-06-05] MEDS: DOCUSATE 100 MG CAPSULE PO (08:48)
[2018-06-05] MEDS: FISH OIL 1,000 MG CAPSULE 1000 MG PO (08:48)
[2018-06-05] MEDS: SODIUM CHLORIDE 0.9% FLUSH 10 ML IV (08:48)
[2018-06-05 10:30] VITALS: PULSE 81; RESP 16
[2018-06-05 12:27] VITALS: BP 125/58; PULSE 84; RESP 16; TEMP 36.7; O2SAT 98
--- NOTE | 2018-06-05 12:55 | PM.DS.1 ---
History of Present Illness Chief complaint: [id number] Discharge Providers Date of admission: 06/03/18 06:11 Primary care physician: Alexa oMrris DO Consults: 06/03/18 13:45 Consult to Discharge Planning Routine Comment: Consult to Physical Therapy Evaluate & Treat Comment: oob today Physician Instructions: post op KENY protocol Consult to Respiratory Therapy Evaluate & Treat Comment: Physician Instructions: Evaluate and treat 06/04/18 10:28 Consult to Occupational Therapy Evaluate & Treat Comment: Physician Instructions: Evaluate and treat Discharge provider: Maria G Petty MD Summary Discharge Diagnosis: Right total hip arthroplasty Hospital Course: Patient underwent a right total hip arthroplasty with an anterior approach. She did well with physical therapy. She had some mild postoperative nausea which was easily controlled. Her baseline blood pressure was fairly low and she had some mild hypotension which responded to a small amount of fluids. She was discharged to home without difficulty. Exam Vital Signs (past 8 hours): - 06/05/18 08:06 06/05/18 10:30 06/05/18 12:27 Temperature 97.9 F 98.1 F Pulse Rate 81 81 84 Respiratory Rate 16 16 16 Blood Pressure 99/45 L 125/58 H Pulse Oximetry 97 98 Fraction of Inspired Oxygen 21 Oxygen Delivery Method Room Air Oxygen Flow Rate 0 Narrative Exam Narrative: Patient was alert and oriented conversant. Her dressing was dry. She had reasonable hip flexion strength. Her calves were soft bilaterally. She had no pain with gentle range of motion and she was able to ambulate weight-bearing as tolerated on the right leg with a walker. Objective Labs Result Diagrams: 06/05/18 05:06 Labs: Laboratory Results - last 24 hr 06/05/18 05:06 Hgb 9.8 L Hct 28.0 L Discharge Plan Discharge Plan Patient Disposition: Home Discharge comment: home today Discharge Med Rec/Prescriptions Prescriptions: New hydromorphone 2 mg Tablet 2 mg PO Q4HR PRN (Reason: Pain, Moderate (4-6)) Qty: 40 RF: 0 polyethylene glycol 3350 17 gram Powder In Packet 17 gm PO DAILY PRN (Reason: Constipation) Qty: 30 RF: 0 ferrous sulfate 325 mg (65 mg iron) Tablet 325 mg PO BIDWM Qty: 60 RF: 0 aspirin 81 mg Tablet,Delayed Release (Dr/Ec) 81 mg PO BID Qty: 60 RF: 0 Continue simvastatin 10 MG tablet 10 mg PO HS Qty: 90 RF: 3 estradiol [Estrace] 0.01 % (0.1 mg/gram) cream 1 gram Vaginal 2XW Qty: 1 RF: 6 albuterol sulfate [Ventolin HFA] 90 mcg/actuation Hfa Aerosol Inhaler 2 puff INHALATION Q4-6H PRN (Reason: exercised induced asthma) RF: 0 diphenhydramine-acetaminophen [Tylenol PM Extra Strength] 25-500 mg Tablet 2 tab PO BEDTIME RF: 0 naphazoline-pheniramine [Opcon-A] 0.56567-2.315 % Drops 1 drp EYE-BOTH PRN PRN (Reason: allergies) RF: 0 naproxen sodium 220 mg Capsule 220 mg PO BEDTIME RF: 0 aspirin 81 mg Tablet,Delayed Release (Dr/Ec) 81 mg PO DAILY RF: 0 omega 9-alz-dfv-fish oil [Fish Oil] 1,000 mg (120 mg-180 mg) Capsule 1 tab PO DAILY RF: 0 tlieappr-dcg-fbuqk acid-vit K [Multi For Her 50 Plus] 400-80 mcg Capsule 1 tab PO DAILY RF: 0 Follow up/Referrals: Alexa Morris DO [Primary Care Provider] - Provider Discharge Instructions Diet: Diet as Tolerated Activity: maintained on a standard total hip replacement protocol with weight bearing as tolerated and anterior hip precautions Cold/Heat Therapy: ice 3 times or more per day Skin/Wound/Dressing Care Report to your healthcare provider any signs of infection, such as:: chills, fever, night sweats, increased pain and unusual drainage Dressing: Keep dressing clean and dry. Visit Report/Discharge Packet Instructions: DI for Hip Replacement Visit Report Forms: Stroke Signs & Symptoms Discharge Data Primary Care Provider: Alexa Morris Attending Provider: Maria G Petty Admit Date/Time: 06/03/18 06:11 Quality VTE Deep Vein Thrombosis/Pulmonary Embolism Present on Admission: No
--- NOTE | 2018-06-05 12:58 | P.DS_ITS ---
History of Present Illness Chief complaint: [id number] Discharge Providers Date of admission: 06/03/18 06:11 Primary care physician: Alexa Morris DO Consults: 06/03/18 13:45 Consult to Discharge Planning Routine Comment: Consult to Physical Therapy Evaluate & Treat Comment: oob today Physician Instructions: post op KENY protocol Consult to Respiratory Therapy Evaluate & Treat Comment: Physician Instructions: Evaluate and treat 06/04/18 10:28 Consult to Occupational Therapy Evaluate & Treat Comment: Physician Instructions: Evaluate and treat Discharge provider: Maria G Petty MD Summary Discharge Diagnosis: Right total hip arthroplasty Hospital Course: Patient underwent a right total hip arthroplasty with an anterior approach. She did well with physical therapy. She had some mild postoperative nausea which was easily controlled. Her baseline blood pressure was fairly low and she had some mild hypotension which responded to a small amount of fluids. She was discharged to home without difficulty. Exam Vital Signs (past 8 hours): - 06/05/18 08:06 06/05/18 10:30 06/05/18 12:27 Temperature 97.9 F 98.1 F Pulse Rate 81 81 84 Respiratory Rate 16 16 16 Blood Pressure 99/45 L 125/58 H Pulse Oximetry 97 98 Fraction of Inspired Oxygen 21 Oxygen Delivery Method Room Air Oxygen Flow Rate 0 Narrative Exam Narrative: Patient was alert and oriented conversant. Her dressing was dry. She had reasonable hip flexion strength. Her calves were soft bilaterally. She had no pain with gentle range of motion and she was able to ambulate weight-bearing as tolerated on the right leg with a walker. Objective Labs Result Diagrams: 06/05/18 05:06 Labs: Laboratory Results - last 24 hr 06/05/18 05:06 Hgb 9.8 L Hct 28.0 L Discharge Plan Discharge Plan Patient Disposition: Home Discharge comment: home today Discharge Med Rec/Prescriptions Prescriptions: New hydromorphone 2 mg Tablet 2 mg PO Q4HR PRN (Reason: Pain, Moderate (4-6)) Qty: 40 RF: 0 polyethylene glycol 3350 17 gram Powder In Packet 17 gm PO DAILY PRN (Reason: Constipation) Qty: 30 RF: 0 ferrous sulfate 325 mg (65 mg iron) Tablet 325 mg PO BIDWM Qty: 60 RF: 0 aspirin 81 mg Tablet,Delayed Release (Dr/Ec) 81 mg PO BID Qty: 60 RF: 0 Continue simvastatin 10 MG tablet 10 mg PO HS Qty: 90 RF: 3 estradiol [Estrace] 0.01 % (0.1 mg/gram) cream 1 gram Vaginal 2XW Qty: 1 RF: 6 albuterol sulfate [Ventolin HFA] 90 mcg/actuation Hfa Aerosol Inhaler 2 puff INHALATION Q4-6H PRN (Reason: exercised induced asthma) RF: 0 diphenhydramine-acetaminophen [Tylenol PM Extra Strength] 25-500 mg Tablet 2 tab PO BEDTIME RF: 0 naphazoline-pheniramine [Opcon-A] 0.34215-6.315 % Drops 1 drp EYE-BOTH PRN PRN (Reason: allergies) RF: 0 naproxen sodium 220 mg Capsule 220 mg PO BEDTIME RF: 0 aspirin 81 mg Tablet,Delayed Release (Dr/Ec) 81 mg PO DAILY RF: 0 omega 5-fcb-hej-fish oil [Fish Oil] 1,000 mg (120 mg-180 mg) Capsule 1 tab PO DAILY RF: 0 [id number]-oyq-gmhmp acid-vit K [Multi For Her 50 Plus] 400-80 mcg Capsule 1 tab PO DAILY RF: 0 Follow up/Referrals: Alexa Morris DO [Primary Care Provider] - Provider Discharge Instructions Diet: Diet as Tolerated Activity: maintained on a standard total hip replacement protocol with weight bearing as tolerated and anterior hip precautions Cold/Heat Therapy: ice 3 times or more per day Skin/Wound/Dressing Care Report to your healthcare provider any signs of infection, such as:: chills, fever, night sweats, increased pain and unusual drainage Dressing: Keep dressing clean and dry. Visit Report/Discharge Packet Instructions: DI for Hip Replacement Visit Report Forms: Stroke Signs & Symptoms Discharge Data Primary Care Provider: Alexa Morris Attending Provider: Maria G Petty Admit Date/Time: 06/03/18 06:11 Quality VTE Deep Vein Thrombosis/Pulmonary Embolism Present on Admission: No
--- NOTE | 2018-06-05 13:32 | CM.DPC ---
DCP Discharge Home Per MD, pt is medically stable to d/c home today with spouse and no identified barriers to discharge. Per PT, recommending safe d/c home with assist and outpt PT. Per RN, no concerns at this time. Plan: Patient to d/c home today via spouse POV and no d/c planning needs at this time, outpt PT already set up. NOELLE Alberto
--- NOTE | 2018-06-05 13:48 | PT.IPTN ---
Current Diagnoses Unilateral primary osteoarthritis, right hip (06/03/18) Surgery Performed Operation Date: 06/03/18 07:45 Actual Procedures p Total Hip Arthroplasty/Anterior Approach(Right) - Maria G Nascimento MD Physical Therapy Treatment Note M2 PT-IP Current Condition Start: 06/03/18 17:46 Freq: NEEDED Status: Active Protocol: Document 06/04/18 14:00 AB (Rec: 06/04/18 14:59 AB [id number]) Physical Therapy Current Condition Current Condition Evaluation Date 06/03/18 Treatment Diagnosis s/p R KENY Onset Date 06/03/18 Precautions Anterior Hip Precautions No Hip Extension No Hip External Rotation Other Precautions clarified again with PA and PA clarified with Dr. nascimento that pt has anterior hip precautions. Weight Bearing Status Weight Bearing Status Weight Bear as Tolerated M3 PT-IP Subjective Start: 06/03/18 17:46 Freq: NEEDED Status: Active Protocol: Document 06/05/18 11:15 CLB (Rec: 06/05/18 13:48 CLB [id number]) Subjective Physical Therapy Visit Type Type Treatment Note Visit Start Time 11:15 Visit Stop Time 11:50 Total Visit Minutes 35 Number of MEDICAL VIDEOGRAPHER Visits 1 Physical Therapy Visit Comments Patient Comments Pt agreeable to do PT Therapy Pain Assessment Pain When Pain Assessed At Rest Pain Present Pain Present Pain Reported Location Right Hip Intensity 4 Scale Used Numeric (1 - 10) Pain Management Techniques Apply Cold Re-positioning Timing of Activity with Medications M4 PT-IP Mobility and Gait Start: 06/03/18 17:46 Freq: NEEDED Status: Active Protocol: Document 06/05/18 11:15 CLB (Rec: 06/05/18 13:48 CLB [id number]) PT-Transfer Assessment Sit to and From Stand Sit to and from Stand Standby Assistance Equipment Transfer Assistive Device Gait Belt Front Wheeled Walker Orthotic/Prosthetic Devices or Brace: No Transfers Transfer Destination Chair Transfer Ability Level of Assist Standby Assistance Comments Mobility Comments BP monitored during activity. Sitting 106/55. Gait Assessment Gait Gait Assistance Required: Contact Guard Assist Distance (Feet) (feet) 50 Able to Maintain Weight Bearing Status Yes During Gait Assistive Devices Assistive Device Gait Belt Front Wheeled Walker Orthotic/Prosthetic Devices or Brace: No Gait Deviations General Gait Pattern Antalgic Decreased Stride Length Decreased Feet Clearance Factors Limiting Gait Function Factors Limiting Gait Function Decreased Strength Pain Comments Gait Comments Pt was up ambulating in room with assist of to BR upon arrival. Standing BP 102/56, BP after activity 116/55. Pt had no c/o dizziness or nausea. Stair Climbing Assessment Evaluation Level of Assist On Stairs Contact Guard Assistance Devices Stair Climbing Assistive Devices Straight Cane Right Railing Technique/Endurance Stair Climbing Direction Ascend and Descend Stair Climbing Technique Step to Step Number of Steps Climbed 3 Query Text: Stair Climbing Set # Repetitions (reps) 1 Comments Stair Climbing Comments Pt trialed stairs with after demonstration. M5 PT-IP Objective Assessments Start: 06/03/18 17:46 Freq: NEEDED Status: Active Protocol: Document 06/03/18 16:56 AB (Rec: 06/03/18 18:01 AB [id number]) Orientation Orientation/Cognition Level of Alertness Alert Orientation Name Age Birthday Month Date Year Day of Week Place Situation Safety Awareness Decreased Safety Awareness Memory Description Short Term Impaired Gross Range of Motion Lower Extremity ROM Assessment Right Impaired Strength Lower Extremity Strength Assessment Right Impaired Hip 3-/5 Muscle Tone Muscle Tone WNL Yes M6 PT-IP Treatment Start: 06/03/18 17:46 Freq: NEEDED Status: Active Protocol: Document 06/05/18 11:15 CLB (Rec: 06/05/18 13:48 CLB [id number]) Physical Therapy Treatment Exercises Exercises Ankle Pumps Gluteal Sets Quad Sets Education Education Provided Precautions Weight Bearing Status Post-Op Packet Safety M7 PT-IP Assessment and Plan Start: 06/03/18 17:46 Freq: NEEDED Status: Active Protocol: Document 06/05/18 11:15 CLB (Rec: 06/05/18 13:48 CLB [id number]) PT Summary Assessment and Plan Potential Rehabilitation Potential Fair Summary Impairments Pain ROM Strength Balance Tone Cognition Bed Mobility Transfers Gait Activity Tolerance Progress Towards Goals Progressing Toward Goals Assessment Summary Pt able to ambulate and perform stairs with assist. Pt had no dizziness or nausea this tx. Pt may d/c when medically able. Goals Bed Mobility Goal Standby Assistance Transfer Goal Standby Assistance Gait Goal Standby Assistance Gait Distance 100 Other Goals up/down 2 steps using 1 rail Days to Meet Goals 3 Frequency of Treatment Frequency Of Treatment Twice a Day Treatment Plan Physical Therapy Treatment Plan Bed Mobility Training Transfer Training Gait Training Therapeutic Exercise Balance Retraining Post Op Education Discharge Planning Hot or Cold Pack Neuromuscular Re-ed Coordination Retraining Manual Therapy Recommendations To Nursing Amount of Assist Needed 1 Person Assist Discharge Recommendations PT Discharge Recommendations Home with Assistance Outpatient PT
== END 2018-06-05 14:45 | disposition home or self-care (01) | DRG 470 ==
PROVIDERS: Physician Assistant Surgical; Admitting Provider Orthopaedic Surgery; Family Provider Family Medicine; PCP Family Medicine; Visit Provider Orthopaedic Surgery
PROC: 0SR902Z Replacement of Right Hip Joint with Metal on Polyethylene Synthetic Substitute, Open Approach (ICD-10-PCS; CPT 27130; principal; 2018-06-03 07:45)
DX: M16.11 Unilateral primary osteoarthritis, right hip (principal); F32.9 Major depressive disorder, single episode, unspecified; G47.33 Obstructive sleep apnea (adult) (pediatric); J45.909 Unspecified asthma, uncomplicated; R42 Dizziness and giddiness; R11.0 Nausea
CPT/HCPCS: 36415; 73502; 76001; 85014; 85018; 94760; 97116; 97162; 97530; C1776; A9270; C9290; J0690; J1170; J2250; J2405; J2704; J2765; J3010; J3370

== ENCOUNTER → 2018-10-20 11:42 | Outpatient (CLI) | payer MEDICARE, OTHER, SELFPAY ==
[2018-06-03 16:19] VITALS: BMI 27.1
--- NOTE | 2018-10-20 11:45 | DI.MG.S_ITS ---
Patient Name: KAYLEEN MCGREGOR date: 1950 Sex: F Attending Physician: Arturo Indications: Date: 10/20/2018 12:14 At the request of: ODIN CARCAMO Procedure: MM screening mammo BI BILATERAL DIGITAL SCREENING MAMMOGRAM 3D/2D WITH CAD: 10/20/2018 CLINICAL: Routine screening. Family history of breast cancer. Comparison is made to exams dated: 05/24/2017 mammogram, 01/13/2016 mammogram - [facility], and 12/22/2011 mammogram - [facility]. There are scattered fibroglandular elements in both breasts. Current study was also evaluated with a Computer Aided Detection (CAD) system. No significant masses, calcifications, or other findings are seen in either breast. There has been no significant interval change. IMPRESSION: NEGATIVE There is no mammographic evidence of malignancy. A 1 year screening mammogram is recommended. This exam was interpreted at Station ID: [id number]. NOTE: For mammograms, a report in lay terms will be sent to the patient. Approximately 15% of breast malignancies will not be visualized mammographically. In the management of a palpable breast mass, a negative mammogram must not discourage biopsy of a clinically suspicious lesion. Electronically Signed By: Antolin delgado/vaughn:10/20/2018 21:50:09 letter sent: Normal Exam ACR BI-RADS Category 1: Negative [id number]
== END ==
PROVIDERS: PCP Family Medicine; Visit Provider Family Medicine
DX: Z12.31 Encounter for screening mammogram for malignant neoplasm of breast (principal); Z80.3 Family history of malignant neoplasm of breast
CPT/HCPCS: 77063; 77067

== ENCOUNTER → 2019-03-03 08:28 | Outpatient (CLI) | payer MEDICARE, OTHER, SELFPAY ==
[2019-01-04 17:22] VITALS: BMI 27.1
[2019-03-03 09:22] LABS: Add Manual Diff / Slide Review NO; Basophils Absolute Auto 0 /uL (0-100); Basophils Percent Auto 0.8 % (0-2); Eosinophils Absolute Auto 200 /uL (0-450); Eosinophils Percent Auto 3.9 % (2-4); Hematocrit 44.1 % (36-46); Hemoglobin 15.2 g/dL (12.0-16.0); Lymphocytes Absolute Auto 1300 /uL (1100-4500); Lymphocytes Percent Auto 22.7 % (25-40); Mean Corpuscular HGB Conc 34.4 % (30-36); Mean Corpuscular Hemoglobin 32.2 PG (26-34); Mean Corpuscular Volume 93.7 fL (80-100); Monocytes Absolute Auto 500 /uL (0-900); Monocytes Percent Auto 8.7 % (3-14); Neutrophils Absolute Auto 3800 /uL (1500-7000); Neutrophils Percent Auto 63.9 % (50-75); Platelet Count 214 X10^3/uL (150-400); Red Cell Distribution Width 13.7 % (11.6-14.8); White Blood Cell Count 5.9 X10^3/uL (4.5-11.0)
[2019-03-03 09:48] LABS: Alanine Aminotransferase 22 IU/L (9-52); Albumin 4.4 g/dL (3.5-5.0); Albumin Globulin Ratio 1.6 (1.0-2.8); Alkaline Phosphatase 87 U/L (38-126); Aspartate Aminotransferase 29 IU/L (14-36); BUN Creatinine Ratio 16.3 (6-22); Bilirubin Total 0.9 mg/dL (0.2-1.3); Blood Urea Nitrogen 13 mg/dL (7-17); Calcium 9.7 mg/dL (8.4-10.2); Carbon Dioxide 31 mmol/L (22-32); Chloride 102 mmol/L (98-107); Cholesterol 190 mg/dL (140-199); Estimated Glomerular Filt Rate > 60.0 mL/min (>60); Globulin 2.8 g/dL (1.7-4.1); Glucose 95 mg/dL (80-110); HDL Cholesterol 51 mg/dL (40-60); HEMOLYSIS < 15 (0-50); LDL Cholesterol Calculated 118 mg/dL (<100); Potassium 4.8 mmol/L (3.4-5.1); Sodium 141 mmol/L (137-145); Total Protein 7.2 g/dL (6.3-8.2); Triglycerides 103 mg/dL (35-150)
== END ==
PROVIDERS: PCP Family Medicine; Visit Provider Family Medicine
DX: R73.03 Prediabetes (principal); E78.2 Mixed hyperlipidemia; D64.9 Anemia, unspecified
CPT/HCPCS: 36415; 80053; 80061; 85025

== ENCOUNTER → 2019-07-12 08:43 | Outpatient (CLI) | payer MEDICARE, OTHER, SELFPAY ==
[2019-01-04 17:22] VITALS: BMI 27.1
[2019-07-12 09:55] LABS: Hemoglobin A1C% w Est Avg Glu 5.1 % (4.0-6.0)
[2019-07-12 10:06] LABS: Cholesterol 232 mg/dL (140-199); HDL Cholesterol 47 mg/dL (40-60); LDL Cholesterol Calculated 169 mg/dL (<100); Triglycerides 81 mg/dL (35-150)
[2019-07-12 10:13] LABS: High Sensitivity CRP - Cardiac 3.5 mg/L (1.0-3.0)
[2019-07-15 14:46] LABS: Insulin Level Total 6.8 uIU/mL (2.0-19.6)
== END ==
PROVIDERS: PCP Family Medicine; Visit Provider Family Medicine
DX: R73.03 Prediabetes (principal); E78.2 Mixed hyperlipidemia; E55.9 Vitamin D deficiency, unspecified
CPT/HCPCS: 36415; 80061; 82306; 83036; 83525; 86140

== ENCOUNTER → 2019-08-17 11:04 | Outpatient (CLI) | payer MEDICARE, OTHER, SELFPAY ==
[2019-01-04 17:22] VITALS: BMI 27.1
[2019-08-17 12:46] LABS: High Sensitivity CRP - Cardiac 2.6 mg/L (1.0-3.0)
== END ==
PROVIDERS: Family Provider Naturopath; PCP Family Medicine; Visit Provider Family Medicine
DX: E66.3 Overweight (principal); E78.2 Mixed hyperlipidemia; R73.03 Prediabetes
CPT/HCPCS: 36415; 86140

== ENCOUNTER → 2019-09-06 12:36 | Outpatient (CLI) | payer MEDICARE, OTHER, SELFPAY ==
[2019-01-04 17:22] VITALS: BMI 27.1
--- NOTE | 2019-09-06 | DI.MRI.S_ITS ---
PROCEDURE: MR LUMBAR SPINE WO CON INDICATIONS: Low back pain TECHNIQUE: Noncontrast sagittal T1 spin echo and T2 fast echo, sagittal STIR, axial T1 and T2 fast spin echo through the lumbar spine. In cases with scoliosis, additional coronal T2 fast spin echo may be performed. COMPARISON: [facility] [place], CR, XR PELVIS WITH BILATERAL LATERAL HIPS, 08/01/2019, 16:34. [facility] [place], CR, XR LUMBAR SPINE 2 OR 3 VIEWS, 08/01/2019, 16:18. [facility], MR, L-SPINE WITHOUT CONTRAST, 08/25/2016, 18:49. FINDINGS: Image quality: Excellent. Alignment and Curvature: There is normal bony alignment. Bone Marrow: Marrow is of normal overall signal. No acute vertebral body compression fractures. Spinal Cord: Conus medullaris terminates at the L1 level. Visualized cord demonstrates normal signal and size. Paraspinous Soft Tissues: No paravertebral masses. L1-L2: Stable appearance with a long-standing posterior contiguous disc protrusion/herniation as was present also in August of 2016. This has a maximal transverse dimension of 1.2 cm, a maximal AP dimension of 7 mm and a craniocaudad extent which is fusiform tapering above and below of 2.2 cm. Facet osteoarthritis at this level is mild, mild foraminal stenosis, mild concentric spinal stenosis, no definite focal nerve root impingement.. L2-L3: Degenerative disc height reduction is moderately severe, and there is a slight posterior disc bulge without change. Mild foraminal stenosis. No definite focal nerve root impingement. L3-L4: The degenerative disc disease at this level has advanced, reviously minimal. There currently is degenerative disc height reduction and desiccation is moderate in severity with a posterior broad-based transverse disc bulge combining with bilateral moderate facet osteoarthritis and ligamentum flavum hypertrophy to produce moderately severe concentric spinal stenosis and moderately severe symmetric bilateral foraminal stenosis. L4-L5: Mild further worsening of degenerative disc disease there is moderately severe at this level, with a very slight degree of anterolisthesis of L4 on L5. Postoperative change at this level is present, with bilateral posterior fusion procedure. . L5-S1: Mild degenerative disc disease, no significant spinal or foraminal stenosis. 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 Significant interval worsening of degenerative changes at L3-4 with secondary moderately severe spinal and foraminal stenosis. A free herniated disc fragment is not found. Expected postsurgical changes after L4-5 posterior fusion procedure and surgical correction of severe spinal stenosis at L4-5. Dictated by: Salvador Crystal M.D. on 09/06/2019 at 14:30 Approved by: Salvador Crystal M.D. on 09/06/2019 at 14:44
== END ==
PROVIDERS: Family Provider Naturopath; PCP Family Medicine; Visit Provider Physical Medicine & Rehabilitation
DX: M51.26 Other intervertebral disc displacement, lumbar region (principal); M47.816 Spondylosis without myelopathy or radiculopathy, lumbar region; M48.061 Spinal stenosis, lumbar region without neurogenic claudication; Z98.1 Arthrodesis status
CPT/HCPCS: 72148

== ENCOUNTER → 2019-10-30 15:10 | Outpatient (CLI) | payer MEDICARE, OTHER, SELFPAY ==
[2019-01-04 17:22] VITALS: BMI 27.1
--- NOTE | 2019-10-30 | DI.MG.S_ITS ---
BILATERAL DIGITAL SCREENING MAMMOGRAM 3D/2D WITH CAD: 10/30/2019 CLINICAL: Routine screening. Family history of breast cancer. Comparison is made to exams dated: 10/20/2018 mammogram, 05/24/2017 mammogram, and 01/13/2016 mammogram - [facility]. There are scattered fibroglandular elements in both breasts. Current study was also evaluated with a Computer Aided Detection (CAD) system. No significant masses, calcifications, or other findings are seen in either breast. There has been no significant interval change. IMPRESSION: NEGATIVE There is no mammographic evidence of malignancy. A 1 year screening mammogram is recommended. This exam was interpreted at Station ID: [id number]. NOTE: For mammograms, a report in lay terms will be sent to the patient. Approximately 15% of breast malignancies will not be visualized mammographically. In the management of a palpable breast mass, a negative mammogram must not discourage biopsy of a clinically suspicious lesion. Electronically Signed By: Antolin delgado/vaughn:10/31/2019 11:27:01 letter sent: Normal Exam ACR BI-RADS Category 1: Negative [id number]
== END ==
PROVIDERS: Family Provider Naturopath; PCP Family Medicine; Visit Provider Family Medicine
DX: Z12.31 Encounter for screening mammogram for malignant neoplasm of breast (principal); Z80.3 Family history of malignant neoplasm of breast
CPT/HCPCS: 77063; 77067

== ENCOUNTER → 2019-11-11 07:58 | Outpatient (CLI) | payer MEDICARE, OTHER, SELFPAY ==
[2019-01-04 17:22] VITALS: BMI 27.1
[2019-11-11 09:16] LABS: Hemoglobin A1C% w Est Avg Glu 5.2 % (4.0-6.0)
[2019-11-11 09:25] LABS: BUN Creatinine Ratio 18.6 (6-22); Blood Urea Nitrogen 13 mg/dL (7-17); Carbon Dioxide 28 mmol/L (22-32); Chloride 103 mmol/L (98-107); Estimated Glomerular Filt Rate > 60.0 mL/min (>60); Glucose 108 mg/dL (80-110); HEMOLYSIS < 15 (0-50); Potassium 4.3 mmol/L (3.4-5.1); Sodium 140 mmol/L (137-145)
[2019-11-11 09:29] LABS: High Sensitivity CRP - Cardiac 1.2 mg/L (1.0-3.0)
[2019-11-15 11:29] LABS: Lipoprofile NMR SEE SEPERATE REPORT
== END ==
PROVIDERS: Family Provider Naturopath; PCP Family Medicine; Referring Provider Family Medicine; Visit Provider Family Medicine
DX: E78.2 Mixed hyperlipidemia (principal); G47.33 Obstructive sleep apnea (adult) (pediatric); R73.03 Prediabetes
CPT/HCPCS: 36415; 80048; 83036; 83704; 86140

== ENCOUNTER → 2019-11-15 10:06 | Outpatient (CLI) | payer MEDICARE, OTHER, SELFPAY ==
[2019-01-04 17:22] VITALS: BMI 27.1
[2019-11-15 10:54] LABS: TSH w/ Reflex to FT4 1.77 uIU/mL (0.47-4.68)
== END ==
PROVIDERS: Family Provider Naturopath; PCP Family Medicine; Visit Provider Family Medicine
DX: E03.9 Hypothyroidism, unspecified (principal)
CPT/HCPCS: 84443

== ENCOUNTER 2019-12-04 13:15 | Outpatient (RCR) | payer MEDICARE, OTHER, SELFPAY ==
[2019-01-04 17:22] VITALS: BMI 27.1
--- NOTE | 2019-09-12 16:24 | PT.OIE ---
Current Diagnoses Radiculopathy, lumbar region (09/12/19) Weakness (09/12/19) Past Medical History (Last Updated 08/26/19 @ 16:51 by Alexa Morris DO) Bipolar disorder in full remission (Inactive 08/02/15) Body mass index (BMI) of 25.0 to 29.9 (Chronic 11/11/15) Diverticulosis of colon without diverticulitis (Chronic) Hammer toe of left foot (Inactive) Herpes simplex of female genitalia (Inactive 08/02/15) Insomnia, persistent (Inactive) Internal hemorrhoids without complication (Chronic) Left ventricular diastolic dysfunction with preserved systolic function (Chronic 11/11/15) Mild intermittent asthma without complication (Chronic 09/27/15) Mixed hyperlipidemia (Chronic 11/04/16) Obstructive sleep apnea syndrome in adult (Chronic 2004) Trochanteric bursitis of left hip (Acute) Past Surgical History (Last Reviewed 05/05/19 @ 22:41 by GEORGIE Bates) History of spinal fusion (03/17/17) History of tonsillectomy S/P cervical spinal fusion (Acute) Status post hysterectomy Status post right hip replacement (Acute ~06/03/18) Status post rotator cuff repair Visit Care Team Role Provider Type Alexa Morris DO Primary Care Provider Physician Specialty: Family Practice Address: [address] [place] [address], [address], [address] Email: [email or web address] Lary Whatley ND Family Provider Non-Staff Specialty: Naturopathy Address: [address] [place] [address], [address] Email: Bishop Cullen MD Attending Provider Physician Specialty: Orthopedics Address: [address] [place] [address], [id number] Email: [email or web address] Initial Evaluation PT-OP-A Visit Information Start: 09/12/19 08:01 Freq: Status: Active Protocol: Document 09/12/19 08:13 SAK (Rec: 09/12/19 09:43 SAK [id number]) Out-Patient Physical Therapy Visit Information Visit Information Visit Type Initial Evaluation Visit Start Time 08:15 Visit Stop Time 09:05 Total Visit Minutes 50 Visit Number 1 Number of ORDER EDITOR Visits 0 Evaluation Information Evaluation Date 09/12/19 PT-OP-B Current Condition Start: 09/12/19 08:01 Freq: Status: Active Protocol: Document 09/12/19 08:13 [facility] (Rec: 09/12/19 09:11 [facility] [id number]) Current Condition History of Current Condition Onset Date 2 years Current Complaints LBP with radicular symptoms History of Current Condition Patient presents to PT with c/ o function-limiting LBP with radicular symptoms including pain and LE weakness as well as numbness 2nd and 3rd toes all the time Prior fusion lumbar 2 years ago. Also 2 fusions cervical spine in 1989. Currently doing land-based PT with Joe Flores for hip pain right greater than left. Does HEP as well as yoga at 2 local studios and at home. Some radiating pain into legs and buttocks. Has obtained new bed recently for improved support. . Legs both give way at times, no falls but has caught herself. Uses CPAP for sleep. Questionable history of osteopenia. History of arthritis and right KENY. Prior Treatments and Tests Right KENY, possible ostopenia. MRI recently showed. Wears custom orthotics made 20 years ago. Future Testing and Treatments Planned none planned. Will be following up with doctor regarding MRI. Treatment Goals Patient/Caregiver Goals Minimize pain and be able to resume more active lifestyle Prior Functional Status Baseline Function- ADL's Independent Baseline Function- Mobility Independent Baseline Function- Gait independnet Baseline Function- Work/School retired Baseline Function- Recreation/Hobbies walking, yoga Current Functional Impairments (Reported) Functional Limitations- ADL's painful Functional Limitations- Mobility/Gait painful Functional Limitations- Work/School retired Functional Limitations- Recreation/ painful, tries to modify due Hobbies to KENY and lumbar fusion PT-OP-C Subjective Start: 09/12/19 08:01 Freq: Status: Active Protocol: Document 09/12/19 08:13 [facility] (Rec: 09/12/19 09:43 [facility] [id number]) Patient Questionnaires Oswestry Low Back Index Oswestry Score 42 OP-PT Pain Assessment Pain Assessment Grid Paper Pain Assessment Grid Completed Yes Location Right Hip Pain Location Details bilateral lumbar spine and buttocks Intensity 5 Scale Used Numeric (1 - 10) Description Aching,Burning,Pressure,With Movement Radiating Location buttocks and posterior thighs Pain Alleviating Factors Inactivity Home Pain Medication Use Pain Medications Used No PT-OP-F Manual Assessment Start: 09/12/19 08:01 Freq: Status: Active Protocol: Document 09/12/19 08:13 [facility]AK (Rec: 09/12/19 09:43 [facility] [id number]) Manual Assessments Soft Tissue Assessment Soft Tissue Mobility Assessment increased tightness bilateral lumbar paraspinals. Poor muscle tone bilateral gluteals Joint Mobility Assessment Joint Mobility Assessment NA due to prior lumbar fusion PT-OP-G Mobility & Gait Start: 09/12/19 08:01 Freq: Status: Active Protocol: Document 09/12/19 08:13 [facility]AK (Rec: 09/12/19 09:43 [facility] [id number]) OP Mobility Evaluation Functional Movements Squats modfied due to decreased hip ROM right (uses wedge with yoga) OP Gait Assessment Gait Gait Assistance Required: Independent Assistive Devices Assistive Device None PT-OP-H Neuro Start: 09/12/19 08:01 Freq: Status: Active Protocol: Document 09/12/19 08:13 [facility] (Rec: 09/12/19 16:22 [facility] [id number]) Sensation Evaluation Gross Sensation Gross Sensation Left LE Impaired PT-OP-J Posture/Palpation/Skin Start: 09/12/19 08:01 Freq: Status: Active Protocol: Document 09/12/19 08:13 [facility] (Rec: 09/12/19 16:22 [facility] [id number]) Posture Evaluation Position Standing L-Spine Posture Flattened Shoulder Posture (L) Rounded,(R) Rounded Pelvis Posture Neutral Hip Posture (L) Externally Rotated,(R) Externally Rotated Palpation Assessment Location One Palpation Location lumbar spine Palpation Findings Soft Tissue Tightness, Tenderness Skin Assessment Other Assessments Skin Assessment Comments intact. Old lumbar spine surgical scar well-healed with mobiity WNL PT-OP-K Range of Motion Start: 09/12/19 08:01 Freq: Status: Active Protocol: Document 09/12/19 08:13 [facility]AK (Rec: 09/12/19 16:22 [facility] [id number]) Lumbar Spine Range of Motion Lumbar Spine Active Testing Position Standing ROM Limitations Soft Tissue Tightness,Bony Restriction,Pain Comments Mod decrease in ROM all motions with c/o pain. Minimal motion occuring at lumbar spine. Hip Goniometric Range of Motion Hip mk Hip ROM WFL Yes Hip ROM Limitations Comments mild tightness mk hamstrings, moderate tightness bilateral quads and iliopsoas Ankle and Foot Goniometric Range of Motion Ankle and Foot mk Ankle/Foot ROM WFL Yes PT-OP-L Special Tests Start: 09/12/19 08:01 Freq: Status: Active Protocol: Document 09/12/19 08:13 [facility] (Rec: 09/12/19 16:22 [facility] [id number]) Special Tests Lumbar Spine Special Tests Straight Leg Raise Test Results negative Artemio Test Results positive mk Standing Flexion Test Results positive increase in symptoms Compression Test Results positive increase in symptoms PT-OP-M Strength Start: 09/12/19 08:01 Freq: Status: Active Protocol: Document 09/12/19 08:13 [facility] (Rec: 09/12/19 16:22 [facility] [id number]) Trunk Strength Trunk Manual Muscle Testing Flexion 4 Good Extension 4- Good- Core Stabilization decreased activation of transverse abdominis. Hip Strength Hip Manual Muscle Testing mk Flexion (L2) 4 Good Extension (S1) 4- Good- Abduction 4+ Good+ Adduction 4+ Good+ External Rotation 4- Good- Internal Rotation 4 Good Knee Strength Knee Manual Muscle Testing mk Flexion (S2) 5 Normal Extension (L3) 5 Normal Ankle/Foot Strength Ankle and Foot Manual Muscle Testing Right Dorsiflexion (L4) 4 Good Plantarflexion (S1) 5 Normal Left Dorsiflexion (L4) 5 Normal Plantarflexion (S1) 5 Normal PT-OP-Q Treatments Start: 09/12/19 08:01 Freq: Status: Active Protocol: Document 09/12/19 08:13 [facility] (Rec: 09/12/19 16:22 [facility] [id number]) Self-Care/Home Management Treatment Education Patient Education Body Mechanics,Home Exercise Program,Pain Management, Posture Other Education benefits of aquatic therapy PT-OP-T Assessment and Plan Start: 09/12/19 08:01 Freq: Status: Active Protocol: Document 09/12/19 08:13 [facility] (Rec: 09/12/19 16:22 [facility] [id number]) Physical Therapy Assessment Rehab Potential Rehabilitation Potential Good Evaluation Complexity Number of Personal Factors/Comorbidities 1-2 Number of Body Systems Impaired 3 Clinical Presentation at Evaluation Evolving Impairments Impairments Activity Tolerance,Pain, Strength Other Concerns Barriers to Rehabilitation prior lumbar fusion, right KENY Goals Three Impairment activity intolerance: Oswestry Disability Index score 42% Short Term Goal (STG) Improve activty tolerance as evidenced by decrease in Oswestry Disability Index score to no greater than 30% STG Duration 10/25/19 Senior Care Goal (LTG) Decrease Oswestry score to no greater than 15% LTG Duration 12/11/19 Two Impairment weakness and decreased ability to activate core musculature for spinal stab Short Term Goal (STG) Instruct in aquatic exercise program for purposes of strengthening and spinal stabilization STG Duration 10/25/19 Senior Care Goal (LTG) Patient to be independent with aquatic exercise program and demonstrate improvement in strength and spinal stabilization ability to at least 4+/5 LTG Duration 12/11/19 One Impairment pain 5/10 Short Term Goal (STG) Decrease pain to no greater than 3/10 in low back with all usual activities STG Duration 10/25/19 Senior Care Goal (LTG) Decrease pain to no greater than 1-2/10 with all usual activities LTG Duration 12/11/19 Assessment Summary Assessment Patient presents with function -limiting lumbar pain with radicular symptoms. Evaluation reveals weakness throughout core and pelvis/ hips, and decreased ability to activate core stabilization musculature for spinal protection with movement. Also has mild tightness in hamstrings and moderate tightness in her quadriceps and iliopsoas. Feel she would benefit highly from aquatic physical therapy which will decrease compression to her joints while allowing for strengthening and stabilization, and alternative methods for flexibility which I feel will be better tolerated than those she is able to do on land. The aquatic therapy will be a good adjunct treatment to her current land-based PT program. Physical Therapy Plan Frequency and Duration Frequency of Treatment 2x/Week Duration of Treatment 12 wks Plan of Care Start Date 09/12/19 Plan of Care End Date 12/11/19 Therapeutic Interventions Therapeutic Interventions Aquatic Therapy,Home Exercise Program,Patient/Caregiver Education,Self-Care/Home Management Next Visit Focus/Plan Next Note Type Treatment Note Next Visit Plan Initiate aquatic therapy
--- NOTE | 2019-09-12 16:24 | PT.OPPOC ---
Current Diagnoses Radiculopathy, lumbar region (09/12/19) Weakness (09/12/19) Visit Care Team Role Provider Type Alexa Morris DO Primary Care Provider Physician Specialty: Family Practice Address: [address] [place] [address], [address], [place], [address] Email: [email or web address] Lary Whatley ND Family Provider Non-Staff Specialty: Naturopathy Address: [address] [place] [address], [address] Email: Bishop Cullen MD Attending Provider Physician Specialty: Orthopedics Address: [address] [place] [address], [address] Email: [email or web address] Plan Of Care PT-OP-T Assessment and Plan Start: 09/12/19 08:01 Freq: Status: Active Protocol: Document 09/12/19 08:13 [facility] (Rec: 09/12/19 16:22 [facility] [id number]) Physical Therapy Assessment Rehab Potential Rehabilitation Potential Good Evaluation Complexity Number of Personal Factors/Comorbidities 1-2 Number of Body Systems Impaired 3 Clinical Presentation at Evaluation Evolving Impairments Impairments Activity Tolerance,Pain, Strength Other Concerns Barriers to Rehabilitation prior lumbar fusion, right KENY Goals Three Impairment activity intolerance: Oswestry Disability Index score 42% Short Term Goal (STG) Improve activty tolerance as evidenced by decrease in Oswestry Disability Index score to no greater than 30% STG Duration 10/25/19 Assisted Goal (LTG) Decrease Oswestry score to no greater than 15% LTG Duration 12/11/19 Two Impairment weakness and decreased ability to activate core musculature for spinal stab Short Term Goal (STG) Instruct in aquatic exercise program for purposes of strengthening and spinal stabilization STG Duration 10/25/19 Electrophysiology Tech Goal (LTG) Patient to be independent with aquatic exercise program and demonstrate improvement in strength and spinal stabilization ability to at least 4+/5 LTG Duration 12/11/19 One Impairment pain 5/10 Short Term Goal (STG) Decrease pain to no greater than 3/10 in low back with all usual activities STG Duration 10/25/19 Assisted Goal (LTG) Decrease pain to no greater than 1-2/10 with all usual activities LTG Duration 12/11/19 Assessment Summary Assessment Patient presents with function -limiting lumbar pain with radicular symptoms. Evaluation reveals weakness throughout core and pelvis/ hips, and decreased ability to activate core stabilization musculature for spinal protection with movement. Also has mild tightness in hamstrings and moderate tightness in her quadriceps and iliopsoas. Feel she would benefit highly from aquatic physical therapy which will decrease compression to her joints while allowing for strengthening and stabilization, and alternative methods for flexibility which I feel will be better tolerated than those she is able to do on land. The aquatic therapy will be a good adjunct treatment to her current land-based PT program. Physical Therapy Plan Frequency and Duration Frequency of Treatment 2x/Week Duration of Treatment 12 wks Plan of Care Start Date 09/12/19 Plan of Care End Date 12/11/19 Therapeutic Interventions Therapeutic Interventions Aquatic Therapy,Home Exercise Program,Patient/Caregiver Education,Self-Care/Home Management Next Visit Focus/Plan Next Note Type Treatment Note Next Visit Plan Initiate aquatic therapy Plan of Care Dates Plan of Care Start Date 09/12/19 Plan of Care End Date 12/11/19
--- NOTE | 2019-09-13 11:45 | PT.OTN ---
Current Diagnoses Radiculopathy, lumbar region (09/13/19) Weakness (09/13/19) Physical Therapy Treatment Note PT-OP-A Visit Information Start: 09/12/19 08:01 Freq: Status: Active Protocol: Document 09/13/19 11:45 SAK (Rec: 09/14/19 11:50 SAK [id number]) Out-Patient Physical Therapy Visit Information Visit Information Visit Type Treatment Note Visit Start Time 11:45 Visit Stop Time 12:30 Total Visit Minutes 45 Visit Number 2 Number of OPERATER Visits 0 Evaluation Information Evaluation Date 09/12/19 PT-OP-B Current Condition Start: 09/12/19 08:01 Freq: Status: Active Protocol: Document 09/12/19 08:13 SAK (Rec: 09/12/19 09:11 SAK [id number]) Current Condition History of Current Condition Onset Date 2 years Current Complaints LBP with radicular symptoms History of Current Condition Patient presents to PT with c/ o function-limiting LBP with radicular symptoms including pain and LE weakness as well as numbness 2nd and 3rd toes all the time Prior fusion lumbar 2 years ago. Also 2 fusions cervical spine in 1989. Currently doing land-based PT with Joe Flores for hip pain right greater than left. Does HEP as well as yoga at 2 local studios and at home. Some radiating pain into legs and buttocks. Has obtained new bed recently for improved support. . Legs both give way at times, no falls but has caught herself. Uses CPAP for sleep. Questionable history of osteopenia. History of arthritis and right KENY. Prior Treatments and Tests Right KENY, possible ostopenia. MRI recently showed. Wears custom orthotics made 20 years ago. Future Testing and Treatments Planned none planned. Will be following up with doctor regarding MRI. Treatment Goals Patient/Caregiver Goals Minimize pain and be able to resume more active lifestyle Prior Functional Status Baseline Function- ADL's Independent Baseline Function- Mobility Independent Baseline Function- Gait independnet Baseline Function- Work/School retired Baseline Function- Recreation/Hobbies walking, yoga Current Functional Impairments (Reported) Functional Limitations- ADL's painful Functional Limitations- Mobility/Gait painful Functional Limitations- Work/School retired Functional Limitations- Recreation/ painful, tries to modify due Hobbies to KENY and lumbar fusion PT-OP-C Subjective Start: 09/12/19 08:01 Freq: Status: Active Protocol: Document 09/12/19 08:13 SAK (Rec: 09/12/19 09:43 [facility] [id number]) Patient Questionnaires Oswestry Low Back Index Oswestry Score 42 OP-PT Pain Assessment Pain Assessment Grid Paper Pain Assessment Grid Completed Yes Location Right Hip Pain Location Details bilateral lumbar spine and buttocks Intensity 5 Scale Used Numeric (1 - 10) Description Aching,Burning,Pressure,With Movement Radiating Location buttocks and posterior thighs Pain Alleviating Factors Inactivity Home Pain Medication Use Pain Medications Used No PT-OP-F Manual Assessment Start: 09/12/19 08:01 Freq: Status: Active Protocol: Document 09/12/19 08:13 SAK (Rec: 09/12/19 09:43 [facility] [id number]) Manual Assessments Soft Tissue Assessment Soft Tissue Mobility Assessment increased tightness bilateral lumbar paraspinals. Poor muscle tone bilateral gluteals Joint Mobility Assessment Joint Mobility Assessment NA due to prior lumbar fusion PT-OP-G Mobility & Gait Start: 09/12/19 08:01 Freq: Status: Active Protocol: Document 09/12/19 08:13 [facility] (Rec: 09/12/19 09:43 [facility] [id number]) OP Mobility Evaluation Functional Movements Squats modfied due to decreased hip ROM right (uses wedge with yoga) OP Gait Assessment Gait Gait Assistance Required: Independent Assistive Devices Assistive Device None PT-OP-H Neuro Start: 09/12/19 08:01 Freq: Status: Active Protocol: Document 09/12/19 08:13 SAK (Rec: 09/12/19 16:22 [facility] [id number]) Sensation Evaluation Gross Sensation Gross Sensation Left LE Impaired PT-OP-J Posture/Palpation/Skin Start: 09/12/19 08:01 Freq: Status: Active Protocol: Document 09/12/19 08:13 SAK (Rec: 09/12/19 16:22 [facility] [id number]) Posture Evaluation Position Standing L-Spine Posture Flattened Shoulder Posture (L) Rounded,(R) Rounded Pelvis Posture Neutral Hip Posture (L) Externally Rotated,(R) Externally Rotated Palpation Assessment Location One Palpation Location lumbar spine Palpation Findings Soft Tissue Tightness, Tenderness Skin Assessment Other Assessments Skin Assessment Comments intact. Old lumbar spine surgical scar well-healed with mobiity WNL PT-OP-K Range of Motion Start: 09/12/19 08:01 Freq: Status: Active Protocol: Document 09/12/19 08:13 [facility] (Rec: 09/12/19 16:22 [facility] [id number]) Lumbar Spine Range of Motion Lumbar Spine Active Testing Position Standing ROM Limitations Soft Tissue Tightness,Bony Restriction,Pain Comments Mod decrease in ROM all motions with c/o pain. Minimal motion occuring at lumbar spine. Hip Goniometric Range of Motion Hip mk Hip ROM WFL Yes Hip ROM Limitations Comments mild tightness mk hamstrings, moderate tightness bilateral quads and iliopsoas Ankle and Foot Goniometric Range of Motion Ankle and Foot mk Ankle/Foot ROM WFL Yes PT-OP-L Special Tests Start: 09/12/19 08:01 Freq: Status: Active Protocol: Document 09/12/19 08:13 [facility] (Rec: 09/12/19 16:22 [facility] [id number]) Special Tests Lumbar Spine Special Tests Straight Leg Raise Test Results negative Artemio Test Results positive mk Standing Flexion Test Results positive increase in symptoms Compression Test Results positive increase in symptoms PT-OP-M Strength Start: 09/12/19 08:01 Freq: Status: Active Protocol: Document 09/12/19 08:13 [facility] (Rec: 09/12/19 16:22 [facility] [id number]) Trunk Strength Trunk Manual Muscle Testing Flexion 4 Good Extension 4- Good- Core Stabilization decreased activation of transverse abdominis. Hip Strength Hip Manual Muscle Testing mk Flexion (L2) 4 Good Extension (S1) 4- Good- Abduction 4+ Good+ Adduction 4+ Good+ External Rotation 4- Good- Internal Rotation 4 Good Knee Strength Knee Manual Muscle Testing mk Flexion (S2) 5 Normal Extension (L3) 5 Normal Ankle/Foot Strength Ankle and Foot Manual Muscle Testing Right Dorsiflexion (L4) 4 Good Plantarflexion (S1) 5 Normal Left Dorsiflexion (L4) 5 Normal Plantarflexion (S1) 5 Normal PT-OP-Q Treatments Start: 09/12/19 08:01 Freq: Status: Active Protocol: Document 09/12/19 08:13 [facility] (Rec: 09/12/19 16:22 [facility] [id number]) Self-Care/Home Management Treatment Education Patient Education Body Mechanics,Home Exercise Program,Pain Management, Posture Other Education benefits of aquatic therapy PT-OP-S Aquatic Treatment Start: 09/12/19 08:01 Freq: Status: Active Protocol: Document 09/13/19 11:45 [facility] (Rec: 09/14/19 11:54 SAK [id number]) Aquatics Treatment Pool Entry/Exit Pool Entry/Exit Method Stairs Assistance Standby Assistance,Verbal Cues Water Walking [place] March Water Level Chest Level Level of Assistance Standby Assistance,Verbal Cues march Water Level Chest Level Level of Assistance Standby Assistance,Verbal Cues Sideways Water Level Chest Level Level of Assistance Standby Assistance,Verbal Cues backward Water Level Chest Level Level of Assistance Standby Assistance,Verbal Cues Forwards Water Level Chest Level Level of Assistance Standby Assistance,Verbal Cues Comments with UE's and with UE's at sides palms fwd for drag Lower Extremity Exercises hip ab/ad Body Position Standing Water Level Chest Level Reps/Duration 10x hip flex/ext Body Position Standing Water Level Chest Level Reps/Duration 10x Lower Extremity Stretches DKTC, SKTC Body Position Standing Water Level [place] Reps/Duration 2x30 Comments at wall hamstring, ITB Body Position Standing Water Level Chest Level Equipment Small Noodle Reps/Duration 2x 30 Spinal Exercises wall squat DLS Details mk and unil UE movement Body Position Sitting Water Level Neck Level Reps/Duration 10x Comments at wall [place] Activities [place] Activities Bicycle,Bicycle Backwards, Cross Country,Running Equipment large flotation belt Duration 15 min PT-OP-T Assessment and Plan Start: 09/12/19 08:01 Freq: Status: Active Protocol: Document 09/13/19 11:45 [facility] (Rec: 09/14/19 11:50 [facility] [id number]) Physical Therapy Assessment Goals Three Impairment activity intolerance: Oswestry Disability Index score 42% Short Term Goal (STG) Improve activty tolerance as evidenced by decrease in Oswestry Disability Index score to no greater than 30% STG Duration 10/25/19 Restorative Aide Goal (LTG) Decrease Oswestry score to no greater than 15% LTG Duration 12/11/19 Two Impairment weakness and decreased ability to activate core musculature for spinal stab Short Term Goal (STG) Instruct in aquatic exercise program for purposes of strengthening and spinal stabilization STG Duration 10/25/19 Restorative Aide Goal (LTG) Patient to be independent with aquatic exercise program and demonstrate improvement in strength and spinal stabilization ability to at least 4+/5 LTG Duration 12/11/19 One Impairment pain 5/10 Short Term Goal (STG) Decrease pain to no greater than 3/10 in low back with all usual activities STG Duration 10/25/19 Restorative Aide Goal (LTG) Decrease pain to no greater than 1-2/10 with all usual activities LTG Duration 12/11/19 Assessment Summary Assessment Patient demonstrated good tolerance for aquatic therapy and denied any increase in symptoms. She is comfortable in the water and I feel she will benefit highly from aquatic therapy. Mod cues for postural alignment and core stabilization with all activities. Physical Therapy Plan Frequency and Duration Frequency of Treatment 2x/Week Duration of Treatment 12 wks Plan of Care Start Date 09/12/19 Plan of Care End Date 12/11/19 Therapeutic Interventions Therapeutic Interventions Aquatic Therapy,Home Exercise Program,Patient/Caregiver Education,Self-Care/Home Management Next Visit Focus/Plan Next Note Type Treatment Note Next Visit Plan asssess response to aquatic therapy, progress as indicated .
--- NOTE | 2019-09-18 14:53 | PT.OTN ---
Current Diagnoses Radiculopathy, lumbar region (09/13/19) Weakness (09/13/19) Physical Therapy Treatment Note PT-OP-A Visit Information Start: 09/12/19 08:01 Freq: Status: Active Protocol: Document 09/18/19 11:45 LJ (Rec: 09/18/19 14:53 LJ [id number]) Out-Patient Physical Therapy Visit Information Visit Information Visit Type Treatment Note Visit Start Time 11:45 Visit Stop Time 12:30 Total Visit Minutes 45 Visit Number 3 Number of ADJUNCT PROFESSOR Visits 1 PT-OP-B Current Condition Start: 09/12/19 08:01 Freq: Status: Active Protocol: Document 09/12/19 08:13 SAK (Rec: 09/12/19 09:11 SAK [id number]) Current Condition History of Current Condition Onset Date 2 years Current Complaints LBP with radicular symptoms History of Current Condition Patient presents to PT with c/ o function-limiting LBP with radicular symptoms including pain and LE weakness as well as numbness 2nd and 3rd toes all the time Prior fusion lumbar 2 years ago. Also 2 fusions cervical spine in 1989. Currently doing land-based PT with Joe Flores for hip pain right greater than left. Does HEP as well as yoga at 2 local studios and at home. Some radiating pain into legs and buttocks. Has obtained new bed recently for improved support. . Legs both give way at times, no falls but has caught herself. Uses CPAP for sleep. Questionable history of osteopenia. History of arthritis and right KENY. Prior Treatments and Tests Right KENY, possible ostopenia. MRI recently showed. Wears custom orthotics made 20 years ago. Future Testing and Treatments Planned none planned. Will be following up with doctor regarding MRI. Treatment Goals Patient/Caregiver Goals Minimize pain and be able to resume more active lifestyle Prior Functional Status Baseline Function- ADL's Independent Baseline Function- Mobility Independent Baseline Function- Gait independnet Baseline Function- Work/School retired Baseline Function- Recreation/Hobbies walking, yoga Current Functional Impairments (Reported) Functional Limitations- ADL's painful Functional Limitations- Mobility/Gait painful Functional Limitations- Work/School retired Functional Limitations- Recreation/ painful, tries to modify due Hobbies to KENY and lumbar fusion PT-OP-C Subjective Start: 09/12/19 08:01 Freq: Status: Active Protocol: Document 09/18/19 11:45 LJ (Rec: 09/18/19 14:53 LJ [id number]) OP-PT Subjective Patient Comments Patient Comments Pt states she was sore after pool the previous week but it was a good sore in my muscles PT-OP-F Manual Assessment Start: 09/12/19 08:01 Freq: Status: Active Protocol: Document 09/12/19 08:13 SAK (Rec: 09/12/19 09:43 SAK [id number]) Manual Assessments Soft Tissue Assessment Soft Tissue Mobility Assessment increased tightness bilateral lumbar paraspinals. Poor muscle tone bilateral gluteals Joint Mobility Assessment Joint Mobility Assessment NA due to prior lumbar fusion PT-OP-G Mobility & Gait Start: 09/12/19 08:01 Freq: Status: Active Protocol: Document 09/12/19 08:13 SAK (Rec: 09/12/19 09:43 SAK [id number]) OP Mobility Evaluation Functional Movements Squats modfied due to decreased hip ROM right (uses wedge with yoga) OP Gait Assessment Gait Gait Assistance Required: Independent Assistive Devices Assistive Device None PT-OP-H Neuro Start: 09/12/19 08:01 Freq: Status: Active Protocol: Document 09/12/19 08:13 SAK (Rec: 09/12/19 16:22 SAK [id number]) Sensation Evaluation Gross Sensation Gross Sensation Left LE Impaired PT-OP-J Posture/Palpation/Skin Start: 09/12/19 08:01 Freq: Status: Active Protocol: Document 09/12/19 08:13 SAK (Rec: 09/12/19 16:22 SAK [id number]) Posture Evaluation Position Standing L-Spine Posture Flattened Shoulder Posture (L) Rounded,(R) Rounded Pelvis Posture Neutral Hip Posture (L) Externally Rotated,(R) Externally Rotated Palpation Assessment Location One Palpation Location lumbar spine Palpation Findings Soft Tissue Tightness, Tenderness Skin Assessment Other Assessments Skin Assessment Comments intact. Old lumbar spine surgical scar well-healed with mobiity WNL PT-OP-K Range of Motion Start: 09/12/19 08:01 Freq: Status: Active Protocol: Document 09/12/19 08:13 SAK (Rec: 09/12/19 16:22 SAK [id number]) Lumbar Spine Range of Motion Lumbar Spine Active Testing Position Standing ROM Limitations Soft Tissue Tightness,Bony Restriction,Pain Comments Mod decrease in ROM all motions with c/o pain. Minimal motion occuring at lumbar spine. Hip Goniometric Range of Motion Hip mk Hip ROM WFL Yes Hip ROM Limitations Comments mild tightness mk hamstrings, moderate tightness bilateral quads and iliopsoas Ankle and Foot Goniometric Range of Motion Ankle and Foot mk Ankle/Foot ROM WFL Yes PT-OP-L Special Tests Start: 09/12/19 08:01 Freq: Status: Active Protocol: Document 09/12/19 08:13 [facility] (Rec: 09/12/19 16:22 [facility] [id number]) Special Tests Lumbar Spine Special Tests Straight Leg Raise Test Results negative Artemio Test Results positive mk Standing Flexion Test Results positive increase in symptoms Compression Test Results positive increase in symptoms PT-OP-M Strength Start: 09/12/19 08:01 Freq: Status: Active Protocol: Document 09/12/19 08:13 [facility] (Rec: 09/12/19 16:22 [facility] [id number]) Trunk Strength Trunk Manual Muscle Testing Flexion 4 Good Extension 4- Good- Core Stabilization decreased activation of transverse abdominis. Hip Strength Hip Manual Muscle Testing mk Flexion (L2) 4 Good Extension (S1) 4- Good- Abduction 4+ Good+ Adduction 4+ Good+ External Rotation 4- Good- Internal Rotation 4 Good Knee Strength Knee Manual Muscle Testing mk Flexion (S2) 5 Normal Extension (L3) 5 Normal Ankle/Foot Strength Ankle and Foot Manual Muscle Testing Right Dorsiflexion (L4) 4 Good Plantarflexion (S1) 5 Normal Left Dorsiflexion (L4) 5 Normal Plantarflexion (S1) 5 Normal PT-OP-Q Treatments Start: 09/12/19 08:01 Freq: Status: Active Protocol: Document 09/12/19 08:13 SAK (Rec: 09/12/19 16:22 [facility] [id number]) Self-Care/Home Management Treatment Education Patient Education Body Mechanics,Home Exercise Program,Pain Management, Posture Other Education benefits of aquatic therapy PT-OP-S Aquatic Treatment Start: 09/12/19 08:01 Freq: Status: Active Protocol: Document 09/18/19 11:45 LJ (Rec: 09/18/19 14:53 LJ [id number]) Aquatics Treatment Pool Entry/Exit Pool Entry/Exit Method Stairs Assistance Standby Assistance,Verbal Cues Water Walking [place] December Water Level Chest Level Level of Assistance Standby Assistance,Verbal Cues december Water Level Chest Level Level of Assistance Standby Assistance,Verbal Cues Comments UEs moving water side to side Sideways Water Level Chest Level Level of Assistance Standby Assistance,Verbal Cues Comments arms- ab,add; horizontal ab,ad alternating backward Water Level Chest Level Level of Assistance Standby Assistance,Verbal Cues Comments forward bs Forwards Water Level Chest Level Level of Assistance Standby Assistance,Verbal Cues Lower Extremity Exercises HS curls Details hh on wall Body Position Standing Reps/Duration 10x2 hip circumduction-CW/CCW Body Position Standing Reps/Duration 10x2 bilaterally each direction Comments cues for stabilizing on standing leg hip ab/ad Body Position Standing Water Level Chest Level Reps/Duration 10x2 hip flex/ext Body Position Standing Water Level Chest Level Reps/Duration 10x2 Lower Extremity Stretches DKTC, SKTC Body Position Standing Water Level [place] Reps/Duration 2x30 Comments at wall hamstring, ITB Body Position Standing Water Level Chest Level Equipment Small Noodle Reps/Duration 2x 30 Upper Extremity Exercises Pull downs Body Position Standing Reps/Duration 10 Comments emphasizing posture and core stabilization horiz ab,add Body Position Standing Reps/Duration 10x2 Comments emphasizing scap retraction [place] Activities [place] Activities Bicycle,Bicycle Backwards, Cross Country,Running Other Activities running involved pushing BBs under the surface to hip level Equipment large flotation belt, med BBs Duration 12 min PT-OP-T Assessment and Plan Start: 09/12/19 08:01 Freq: Status: Active Protocol: Document 09/18/19 11:45 DIANNE (Rec: 09/18/19 14:53 [facility] [id number]) Physical Therapy Assessment Rehab Potential Rehabilitation Potential Good Evaluation Complexity Number of Personal Factors/Comorbidities 1-2 Number of Body Systems Impaired 3 Clinical Presentation at Evaluation Evolving Impairments Impairments Activity Tolerance,Pain, Strength Goals Three Impairment activity intolerance: Oswestry Disability Index score 42% Short Term Goal (STG) Improve activty tolerance as evidenced by decrease in Oswestry Disability Index score to no greater than 30% STG Duration 10/25/19 Soldering Machine Tender Goal (LTG) Decrease Oswestry score to no greater than 15% LTG Duration 12/11/19 Two Impairment weakness and decreased ability to activate core musculature for spinal stab Short Term Goal (STG) Instruct in aquatic exercise program for purposes of strengthening and spinal stabilization STG Duration 10/25/19 Assisted Goal (LTG) Patient to be independent with aquatic exercise program and demonstrate improvement in strength and spinal stabilization ability to at least 4+/5 LTG Duration 12/11/19 One Impairment pain 5/10 Short Term Goal (STG) Decrease pain to no greater than 3/10 in low back with all usual activities STG Duration 10/25/19 Soldering Machine Tender Goal (LTG) Decrease pain to no greater than 1-2/10 with all usual activities LTG Duration 12/11/19 Assessment Summary Assessment Pt tolerated exercises well without report of increase in pain other than when side stepping with large steps. Advised to reduce ROM which alleviated pain. Requires cueing for postural awareness and core stabilization to maintain a neutral spine Physical Therapy Plan Frequency and Duration Frequency of Treatment 2x/Week Duration of Treatment 12 wks Plan of Care Start Date 09/12/19 Plan of Care End Date 12/11/19 Therapeutic Interventions Therapeutic Interventions Aquatic Therapy,Home Exercise Program,Patient/Caregiver Education,Self-Care/Home Management Next Visit Focus/Plan Next Note Type Treatment Note Next Visit Plan Increase focus on core exercises and increase intensity as tolerated. Gradually add resistance equipment for increasing strength and endurance.
--- NOTE | 2019-09-20 11:45 | PT.OTN ---
Current Diagnoses Radiculopathy, lumbar region (09/20/19) Weakness (09/20/19) Physical Therapy Treatment Note PT-OP-A Visit Information Start: 09/12/19 08:01 Freq: Status: Active Protocol: Document 09/20/19 11:45 SAK (Rec: 09/25/19 08:10 SAK [id number]) Out-Patient Physical Therapy Visit Information Visit Information Visit Type Treatment Note Visit Start Time 11:45 Visit Stop Time 12:30 Total Visit Minutes 45 Visit Number 4 Number of PARTS AND SERVICE MANAGER Visits 1 PT-OP-B Current Condition Start: 09/12/19 08:01 Freq: Status: Active Protocol: Document 09/12/19 08:13 SAK (Rec: 09/12/19 09:11 SAK [id number]) Current Condition History of Current Condition Onset Date 2 years Current Complaints LBP with radicular symptoms History of Current Condition Patient presents to PT with c/ o function-limiting LBP with radicular symptoms including pain and LE weakness as well as numbness 2nd and 3rd toes all the time Prior fusion lumbar 2 years ago. Also 2 fusions cervical spine in 1989. Currently doing land-based PT with Joe Flores for hip pain right greater than left. Does HEP as well as yoga at 2 local studios and at home. Some radiating pain into legs and buttocks. Has obtained new bed recently for improved support. . Legs both give way at times, no falls but has caught herself. Uses CPAP for sleep. Questionable history of osteopenia. History of arthritis and right KENY. Prior Treatments and Tests Right KENY, possible ostopenia. MRI recently showed. Wears custom orthotics made 20 years ago. Future Testing and Treatments Planned none planned. Will be following up with doctor regarding MRI. Treatment Goals Patient/Caregiver Goals Minimize pain and be able to resume more active lifestyle Prior Functional Status Baseline Function- ADL's Independent Baseline Function- Mobility Independent Baseline Function- Gait independnet Baseline Function- Work/School retired Baseline Function- Recreation/Hobbies walking, yoga Current Functional Impairments (Reported) Functional Limitations- ADL's painful Functional Limitations- Mobility/Gait painful Functional Limitations- Work/School retired Functional Limitations- Recreation/ painful, tries to modify due Hobbies to KENY and lumbar fusion PT-OP-C Subjective Start: 09/12/19 08:01 Freq: Status: Active Protocol: Document 12/11/19 11:45 SAK (Rec: 09/25/19 08:10 [facility] [id number]) OP-PT Subjective Patient Comments Patient Comments No new c/o. Feels aquatic PT helping. PT-OP-F Manual Assessment Start: 09/12/19 08:01 Freq: Status: Active Protocol: Document 09/12/19 08:13 SAK (Rec: 09/12/19 09:43 [facility] [id number]) Manual Assessments Soft Tissue Assessment Soft Tissue Mobility Assessment increased tightness bilateral lumbar paraspinals. Poor muscle tone bilateral gluteals Joint Mobility Assessment Joint Mobility Assessment NA due to prior lumbar fusion PT-OP-G Mobility & Gait Start: 09/12/19 08:01 Freq: Status: Active Protocol: Document 09/12/19 08:13 SAK (Rec: 09/12/19 09:43 [facility] [id number]) OP Mobility Evaluation Functional Movements Squats modfied due to decreased hip ROM right (uses wedge with yoga) OP Gait Assessment Gait Gait Assistance Required: Independent Assistive Devices Assistive Device None PT-OP-H Neuro Start: 09/12/19 08:01 Freq: Status: Active Protocol: Document 09/12/19 08:13 SAK (Rec: 09/12/19 16:22 [facility] [id number]) Sensation Evaluation Gross Sensation Gross Sensation Left LE Impaired PT-OP-J Posture/Palpation/Skin Start: 09/12/19 08:01 Freq: Status: Active Protocol: Document 09/12/19 08:13 SAK (Rec: 09/12/19 16:22 [facility] [id number]) Posture Evaluation Position Standing L-Spine Posture Flattened Shoulder Posture (L) Rounded,(R) Rounded Pelvis Posture Neutral Hip Posture (L) Externally Rotated,(R) Externally Rotated Palpation Assessment Location One Palpation Location lumbar spine Palpation Findings Soft Tissue Tightness, Tenderness Skin Assessment Other Assessments Skin Assessment Comments intact. Old lumbar spine surgical scar well-healed with mobiity WNL PT-OP-K Range of Motion Start: 09/12/19 08:01 Freq: Status: Active Protocol: Document 09/12/19 08:13 SAK (Rec: 09/12/19 16:22 [facility] [id number]) Lumbar Spine Range of Motion Lumbar Spine Active Testing Position Standing ROM Limitations Soft Tissue Tightness,Bony Restriction,Pain Comments Mod decrease in ROM all motions with c/o pain. Minimal motion occuring at lumbar spine. Hip Goniometric Range of Motion Hip mk Hip ROM WFL Yes Hip ROM Limitations Comments mild tightness mk hamstrings, moderate tightness bilateral quads and iliopsoas Ankle and Foot Goniometric Range of Motion Ankle and Foot mk Ankle/Foot ROM WFL Yes PT-OP-L Special Tests Start: 09/12/19 08:01 Freq: Status: Active Protocol: Document 09/12/19 08:13 [facility] (Rec: 09/12/19 16:22 [facility] [id number]) Special Tests Lumbar Spine Special Tests Straight Leg Raise Test Results negative Artemio Test Results positive mk Standing Flexion Test Results positive increase in symptoms Compression Test Results positive increase in symptoms PT-OP-M Strength Start: 09/12/19 08:01 Freq: Status: Active Protocol: Document 09/12/19 08:13 [facility] (Rec: 09/12/19 16:22 [facility] [id number]) Trunk Strength Trunk Manual Muscle Testing Flexion 4 Good Extension 4- Good- Core Stabilization decreased activation of transverse abdominis. Hip Strength Hip Manual Muscle Testing mk Flexion (L2) 4 Good Extension (S1) 4- Good- Abduction 4+ Good+ Adduction 4+ Good+ External Rotation 4- Good- Internal Rotation 4 Good Knee Strength Knee Manual Muscle Testing mk Flexion (S2) 5 Normal Extension (L3) 5 Normal Ankle/Foot Strength Ankle and Foot Manual Muscle Testing Right Dorsiflexion (L4) 4 Good Plantarflexion (S1) 5 Normal Left Dorsiflexion (L4) 5 Normal Plantarflexion (S1) 5 Normal PT-OP-Q Treatments Start: 09/12/19 08:01 Freq: Status: Active Protocol: Document 09/12/19 08:13 [facility] (Rec: 09/12/19 16:22 [facility] [id number]) Self-Care/Home Management Treatment Education Patient Education Body Mechanics,Home Exercise Program,Pain Management, Posture Other Education benefits of aquatic therapy PT-OP-S Aquatic Treatment Start: 09/12/19 08:01 Freq: Status: Active Protocol: Document 09/20/19 11:45 [facility] (Rec: 09/25/19 08:10 [facility] [id number]) Aquatics Treatment Pool Entry/Exit Pool Entry/Exit Method Stairs Assistance Standby Assistance,Verbal Cues Water Walking [place] December Water Level Chest Level Level of Assistance Standby Assistance,Verbal Cues december Water Level Chest Level Level of Assistance Standby Assistance,Verbal Cues Comments UEs moving water side to side Sideways Water Level Chest Level Level of Assistance Standby Assistance,Verbal Cues Comments arms- ab,add; horizontal ab,ad alternating backward Water Level Chest Level Level of Assistance Standby Assistance,Verbal Cues Comments forward bs Forwards Water Level Chest Level Level of Assistance Standby Assistance,Verbal Cues Lower Extremity Exercises HS curls Details hh on wall Body Position Standing Reps/Duration 10x2 hip circumduction-CW/CCW Body Position Standing Reps/Duration 10x2 bilaterally each direction Comments cues for stabilizing on standing leg hip ab/ad Body Position Standing Water Level Chest Level Reps/Duration 10x2 hip flex/ext Body Position Standing Water Level Chest Level Reps/Duration 10x2 Lower Extremity Stretches DKTC, SKTC Body Position Standing Water Level [place] Reps/Duration 2x30 Comments at wall hamstring, ITB Body Position Standing Water Level Chest Level Equipment Small Noodle Reps/Duration 2x 30 Upper Extremity Exercises Pull downs Body Position Standing Equipment med barbells Reps/Duration 10 Comments emphasizing posture and core stabilization horiz ab,add Body Position Standing Reps/Duration 10x2 Comments emphasizing scap retraction Spinal Exercises Deep water DLS Body Position Standing Water Level [place] Equipment med barbells wall squat DLS Details mk and unil UE movement Body Position Sitting Water Level Neck Level Reps/Duration 10x Comments at wall [place] Activities [place] Activities Bicycle,Bicycle Backwards, Cross [place],Running Other Activities running involved pushing BBs under the surface to hip level Equipment large flotation belt, med BBs Duration 12 min PT-OP-T Assessment and Plan Start: 09/12/19 08:01 Freq: Status: Active Protocol: Document 09/20/19 11:45 [facility] (Rec: 09/25/19 08:10 [facility] [id number]) Physical Therapy Assessment Rehab Potential Rehabilitation Potential Good Evaluation Complexity Number of Personal Factors/Comorbidities 1-2 Number of Body Systems Impaired 3 Clinical Presentation at Evaluation Evolving Impairments Impairments Activity Tolerance,Pain, Strength Goals Three Impairment activity intolerance: Oswestry Disability Index score 42% Short Term Goal (STG) Improve activty tolerance as evidenced by decrease in Oswestry Disability Index score to no greater than 30% STG Duration 10/25/19 Tape Control Skin Or Spar Mill Operator Goal (LTG) Decrease Oswestry score to no greater than 15% LTG Duration 12/11/19 Two Impairment weakness and decreased ability to activate core musculature for spinal stab Short Term Goal (STG) Instruct in aquatic exercise program for purposes of strengthening and spinal stabilization STG Duration 10/25/19 Tape Control Skin Or [place] Operator Goal (LTG) Patient to be independent with aquatic exercise program and demonstrate improvement in strength and spinal stabilization ability to at least 4+/5 LTG Duration 12/11/19 One Impairment pain 5/10 Short Term Goal (STG) Decrease pain to no greater than 3/10 in low back with all usual activities STG Duration 10/25/19 Tape Control Skin Or [employer] Operator Goal (LTG) Decrease pain to no greater than 1-2/10 with all usual activities LTG Duration 12/11/19 Assessment Summary Assessment Pt tolerated exercises well without report of increase in pain other than when side stepping with large steps. Advised to reduce ROM which alleviated pain. Requires cueing for postural awareness and core stabilization to maintain a neutral spine Physical Therapy Plan Frequency and Duration Frequency of Treatment 2x/Week Duration of Treatment 12 wks Plan of Care Start Date 09/12/19 Plan of Care End Date 12/11/19 Therapeutic Interventions Therapeutic Interventions Aquatic Therapy,Home Exercise Program,Patient/Caregiver Education,Self-Care/Home Management Next Visit Focus/Plan Next Note Type Treatment Note Next Visit Plan Progress aquatic exercises with emphasis on core strengthening and stabilization as tolerated.
--- NOTE | 2019-09-25 10:15 | PT.OTN ---
Current Diagnoses Radiculopathy, lumbar region (09/25/19) Weakness (09/25/19) Physical Therapy Treatment Note PT-OP-A Visit Information Start: 09/12/19 08:01 Freq: Status: Active Protocol: Document 09/25/19 10:15 CLB (Rec: 09/25/19 14:58 CLB [id number]) Out-Patient Physical Therapy Visit Information Visit Information Visit Type Aquatic Treatment Note Visit Start Time 10:15 Visit Stop Time 11:00 Total Visit Minutes 45 Visit Number 5 Number of APARTMENT MAINTENANCE MANAGER Visits 1 PT-OP-B Current Condition Start: 09/12/19 08:01 Freq: Status: Active Protocol: Document 09/12/19 08:13 SAK (Rec: 09/12/19 09:11 SAK [id number]) Current Condition History of Current Condition Onset Date 2 years Current Complaints LBP with radicular symptoms History of Current Condition Patient presents to PT with c/ o function-limiting LBP with radicular symptoms including pain and LE weakness as well as numbness 2nd and 3rd toes all the time Prior fusion lumbar 2 years ago. Also 2 fusions cervical spine in 1989. Currently doing land-based PT with Joe Flores for hip pain right greater than left. Does HEP as well as yoga at 2 local studios and at home. Some radiating pain into legs and buttocks. Has obtained new bed recently for improved support. . Legs both give way at times, no falls but has caught herself. Uses CPAP for sleep. Questionable history of osteopenia. History of arthritis and right KENY. Prior Treatments and Tests Right KENY, possible ostopenia. MRI recently showed. Wears custom orthotics made 20 years ago. Future Testing and Treatments Planned none planned. Will be following up with doctor regarding MRI. Treatment Goals Patient/Caregiver Goals Minimize pain and be able to resume more active lifestyle Prior Functional Status Baseline Function- ADL's Independent Baseline Function- Mobility Independent Baseline Function- Gait independnet Baseline Function- Work/School retired Baseline Function- Recreation/Hobbies walking, yoga Current Functional Impairments (Reported) Functional Limitations- ADL's painful Functional Limitations- Mobility/Gait painful Functional Limitations- Work/School retired Functional Limitations- Recreation/ painful, tries to modify due Hobbies to KENY and lumbar fusion PT-OP-C Subjective Start: 09/12/19 08:01 Freq: Status: Active Protocol: Document 09/25/19 10:15 CLB (Rec: 09/25/19 15:01 CLB [id number]) OP-PT Subjective Patient Comments Patient Comments Pt had MRI to show PT PT-OP-F Manual Assessment Start: 09/12/19 08:01 Freq: Status: Active Protocol: Document 09/12/19 08:13 SAK (Rec: 09/12/19 09:43 SAK [id number]) Manual Assessments Soft Tissue Assessment Soft Tissue Mobility Assessment increased tightness bilateral lumbar paraspinals. Poor muscle tone bilateral gluteals Joint Mobility Assessment Joint Mobility Assessment NA due to prior lumbar fusion PT-OP-G Mobility & Gait Start: 09/12/19 08:01 Freq: Status: Active Protocol: Document 09/12/19 08:13 SAK (Rec: 09/12/19 09:43 SAK [id number]) OP Mobility Evaluation Functional Movements Squats modfied due to decreased hip ROM right (uses wedge with yoga) OP Gait Assessment Gait Gait Assistance Required: Independent Assistive Devices Assistive Device None PT-OP-H Neuro Start: 09/12/19 08:01 Freq: Status: Active Protocol: Document 09/12/19 08:13 SAK (Rec: 09/12/19 16:22 SAK [id number]) Sensation Evaluation Gross Sensation Gross Sensation Left LE Impaired PT-OP-J Posture/Palpation/Skin Start: 09/12/19 08:01 Freq: Status: Active Protocol: Document 09/12/19 08:13 SAK (Rec: 09/12/19 16:22 SAK [id number]) Posture Evaluation Position Standing L-Spine Posture Flattened Shoulder Posture (L) Rounded,(R) Rounded Pelvis Posture Neutral Hip Posture (L) Externally Rotated,(R) Externally Rotated Palpation Assessment Location One Palpation Location lumbar spine Palpation Findings Soft Tissue Tightness, Tenderness Skin Assessment Other Assessments Skin Assessment Comments intact. Old lumbar spine surgical scar well-healed with mobiity WNL PT-OP-K Range of Motion Start: 09/12/19 08:01 Freq: Status: Active Protocol: Document 09/12/19 08:13 SAK (Rec: 09/12/19 16:22 SAK [id number]) Lumbar Spine Range of Motion Lumbar Spine Active Testing Position Standing ROM Limitations Soft Tissue Tightness,Bony Restriction,Pain Comments Mod decrease in ROM all motions with c/o pain. Minimal motion occuring at lumbar spine. Hip Goniometric Range of Motion Hip mk Hip ROM WFL Yes Hip ROM Limitations Comments mild tightness mk hamstrings, moderate tightness bilateral quads and iliopsoas Ankle and Foot Goniometric Range of Motion Ankle and Foot mk Ankle/Foot ROM WFL Yes PT-OP-L Special Tests Start: 09/12/19 08:01 Freq: Status: Active Protocol: Document 09/12/19 08:13 [facility] (Rec: 09/12/19 16:22 [facility] [id number]) Special Tests Lumbar Spine Special Tests Straight Leg Raise Test Results negative Artemio Test Results positive mk Standing Flexion Test Results positive increase in symptoms Compression Test Results positive increase in symptoms PT-OP-M Strength Start: 09/12/19 08:01 Freq: Status: Active Protocol: Document 09/12/19 08:13 [facility] (Rec: 09/12/19 16:22 [facility] [id number]) Trunk Strength Trunk Manual Muscle Testing Flexion 4 Good Extension 4- Good- Core Stabilization decreased activation of transverse abdominis. Hip Strength Hip Manual Muscle Testing mk Flexion (L2) 4 Good Extension (S1) 4- Good- Abduction 4+ Good+ Adduction 4+ Good+ External Rotation 4- Good- Internal Rotation 4 Good Knee Strength Knee Manual Muscle Testing mk Flexion (S2) 5 Normal Extension (L3) 5 Normal Ankle/Foot Strength Ankle and Foot Manual Muscle Testing Right Dorsiflexion (L4) 4 Good Plantarflexion (S1) 5 Normal Left Dorsiflexion (L4) 5 Normal Plantarflexion (S1) 5 Normal PT-OP-Q Treatments Start: 09/12/19 08:01 Freq: Status: Active Protocol: Document 09/12/19 08:13 [facility] (Rec: 09/12/19 16:22 [facility] [id number]) Self-Care/Home Management Treatment Education Patient Education Body Mechanics,Home Exercise Program,Pain Management, Posture Other Education benefits of aquatic therapy PT-OP-S Aquatic Treatment Start: 09/12/19 08:01 Freq: Status: Active Protocol: Document 09/25/19 10:15 CLB (Rec: 09/25/19 14:58 CLB [id number]) Aquatics Treatment Water Walking Sideways Water Level Chest Level Level of Assistance Standby Assistance,Verbal Cues Comments arms- ab,add; horizontal ab,ad alternating Forwards Water Level Chest Level Level of Assistance Standby Assistance,Verbal Cues Lower Extremity Stretches DKTC, SKTC Body Position Standing Water Level [place] Reps/Duration 2x30 Comments at wall hamstring, ITB Body Position Standing Water Level Chest Level Equipment Small Noodle Reps/Duration 2x 30 Upper Extremity Exercises Pull downs Body Position Standing Equipment med barbells Reps/Duration 10 Comments emphasizing posture and core stabilization horiz ab,add Body Position Standing Reps/Duration 10x2 Comments emphasizing scap retraction Spinal Exercises Deep water DLS Body Position Standing Water Level [place] Equipment med barbells wall squat DLS Details mk and unil UE movement Body Position Sitting Water Level Neck Level Reps/Duration 10x Comments at wall [place] Activities [place] Activities Bicycle,Bicycle Backwards, Cross [place],Running Other Activities running involved pushing BBs under the surface to hip level Equipment large flotation belt, med BBs Duration 12 min PT-OP-T Assessment and Plan Start: 09/12/19 08:01 Freq: Status: Active Protocol: Document 09/25/19 10:15 [facility]B (Rec: 09/25/19 14:58 [facility]B [id number]) Physical Therapy Assessment Goals Three Impairment activity intolerance: Oswestry Disability Index score 42% Short Term Goal (STG) Improve activty tolerance as evidenced by decrease in Oswestry Disability Index score to no greater than 30% STG Duration 10/25/19 Mcc Goal (LTG) Decrease Oswestry score to no greater than 15% LTG Duration 12/11/19 Two Impairment weakness and decreased ability to activate core musculature for spinal stab Short Term Goal (STG) Instruct in aquatic exercise program for purposes of strengthening and spinal stabilization STG Duration 10/25/19 General Technician Goal (LTG) Patient to be independent with aquatic exercise program and demonstrate improvement in strength and spinal stabilization ability to at least 4+/5 LTG Duration 12/11/19 One Impairment pain 5/10 Short Term Goal (STG) Decrease pain to no greater than 3/10 in low back with all usual activities STG Duration 10/25/19 General Technician Goal (LTG) Decrease pain to no greater than 1-2/10 with all usual activities LTG Duration 12/11/19 Assessment Summary Assessment Pt tolerated exercises well without report of increase in pain other than when side stepping with large steps. Advised to reduce ROM which alleviated pain. Requires cueing for postural awareness and core stabilization to maintain a neutral spine Physical Therapy Plan Frequency and Duration Frequency of Treatment 2x/Week Duration of Treatment 12 wks Plan of Care Start Date 09/12/19 Plan of Care End Date 12/11/19 Next Visit Focus/Plan Next Note Type Treatment Note Next Visit Plan Progress aquatic exercises with emphasis on core strengthening and stabilization as tolerated.
--- NOTE | 2019-09-29 16:39 | PT.OTN ---
Current Diagnoses Radiculopathy, lumbar region (09/29/19) Weakness (09/29/19) Physical Therapy Treatment Note PT-OP-A Visit Information Start: 09/12/19 08:01 Freq: Status: Active Protocol: Document 09/29/19 12:30 LJ (Rec: 09/29/19 16:39 LJ [id number]) Out-Patient Physical Therapy Visit Information Visit Information Visit Type Aquatic Treatment Note Visit Start Time 12:30 Visit Stop Time 13:15 Total Visit Minutes 45 Visit Number 6 Number of WIRE MESH GATE ASSEMBLER Visits 2 PT-OP-B Current Condition Start: 09/12/19 08:01 Freq: Status: Active Protocol: Document 09/12/19 08:13 SAK (Rec: 09/12/19 09:11 SAK [id number]) Current Condition History of Current Condition Onset Date 2 years Current Complaints LBP with radicular symptoms History of Current Condition Patient presents to PT with c/ o function-limiting LBP with radicular symptoms including pain and LE weakness as well as numbness 2nd and 3rd toes all the time Prior fusion lumbar 2 years ago. Also 2 fusions cervical spine in 1989. Currently doing land-based PT with Joe Flores for hip pain right greater than left. Does HEP as well as yoga at 2 local studios and at home. Some radiating pain into legs and buttocks. Has obtained new bed recently for improved support. . Legs both give way at times, no falls but has caught herself. Uses CPAP for sleep. Questionable history of osteopenia. History of arthritis and right KENY. Prior Treatments and Tests Right KENY, possible ostopenia. MRI recently showed. Wears custom orthotics made 20 years ago. Future Testing and Treatments Planned none planned. Will be following up with doctor regarding MRI. Treatment Goals Patient/Caregiver Goals Minimize pain and be able to resume more active lifestyle Prior Functional Status Baseline Function- ADL's Independent Baseline Function- Mobility Independent Baseline Function- Gait independnet Baseline Function- Work/School retired Baseline Function- Recreation/Hobbies walking, yoga Current Functional Impairments (Reported) Functional Limitations- ADL's painful Functional Limitations- Mobility/Gait painful Functional Limitations- Work/School retired Functional Limitations- Recreation/ painful, tries to modify due Hobbies to KENY and lumbar fusion PT-OP-C Subjective Start: 09/12/19 08:01 Freq: Status: Active Protocol: Document 09/29/19 12:30 LJ (Rec: 09/29/19 16:39 LJ [id number]) OP-PT Subjective Patient Comments Patient Comments Pt reports she has had an increase in pain with walking outside. She states she has stopped walking outside and wants to increase amount of time spent exercising in pool. Has carlos consistent with HEP PT-OP-F Manual Assessment Start: 09/12/19 08:01 Freq: Status: Active Protocol: Document 09/12/19 08:13 SAK (Rec: 09/12/19 09:43 SAK [id number]) Manual Assessments Soft Tissue Assessment Soft Tissue Mobility Assessment increased tightness bilateral lumbar paraspinals. Poor muscle tone bilateral gluteals Joint Mobility Assessment Joint Mobility Assessment NA due to prior lumbar fusion PT-OP-G Mobility & Gait Start: 09/12/19 08:01 Freq: Status: Active Protocol: Document 09/12/19 08:13 SAK (Rec: 09/12/19 09:43 SAK [id number]) OP Mobility Evaluation Functional Movements Squats modfied due to decreased hip ROM right (uses wedge with yoga) OP Gait Assessment Gait Gait Assistance Required: Independent Assistive Devices Assistive Device None PT-OP-H Neuro Start: 09/12/19 08:01 Freq: Status: Active Protocol: Document 09/12/19 08:13 SAK (Rec: 09/12/19 16:22 SAK [id number]) Sensation Evaluation Gross Sensation Gross Sensation Left LE Impaired PT-OP-J Posture/Palpation/Skin Start: 09/12/19 08:01 Freq: Status: Active Protocol: Document 09/12/19 08:13 SAK (Rec: 09/12/19 16:22 SAK [id number]) Posture Evaluation Position Standing L-Spine Posture Flattened Shoulder Posture (L) Rounded,(R) Rounded Pelvis Posture Neutral Hip Posture (L) Externally Rotated,(R) Externally Rotated Palpation Assessment Location One Palpation Location lumbar spine Palpation Findings Soft Tissue Tightness, Tenderness Skin Assessment Other Assessments Skin Assessment Comments intact. Old lumbar spine surgical scar well-healed with mobiity WNL PT-OP-K Range of Motion Start: 09/12/19 08:01 Freq: Status: Active Protocol: Document 09/12/19 08:13 SAK (Rec: 09/12/19 16:22 SAK [id number]) Lumbar Spine Range of Motion Lumbar Spine Active Testing Position Standing ROM Limitations Soft Tissue Tightness,Bony Restriction,Pain Comments Mod decrease in ROM all motions with c/o pain. Minimal motion occuring at lumbar spine. Hip Goniometric Range of Motion Hip mk Hip ROM WFL Yes Hip ROM Limitations Comments mild tightness mk hamstrings, moderate tightness bilateral quads and iliopsoas Ankle and Foot Goniometric Range of Motion Ankle and Foot mk Ankle/Foot ROM WFL Yes PT-OP-L Special Tests Start: 09/12/19 08:01 Freq: Status: Active Protocol: Document 09/12/19 08:13 SAK (Rec: 09/12/19 16:22 SAK [id number]) Special Tests Lumbar Spine Special Tests Straight Leg Raise Test Results negative Artemio Test Results positive mk Standing Flexion Test Results positive increase in symptoms Compression Test Results positive increase in symptoms PT-OP-M Strength Start: 09/12/19 08:01 Freq: Status: Active Protocol: Document 09/12/19 08:13 SAK (Rec: 09/12/19 16:22 [facility] [id number]) Trunk Strength Trunk Manual Muscle Testing Flexion 4 Good Extension 4- Good- Core Stabilization decreased activation of transverse abdominis. Hip Strength Hip Manual Muscle Testing mk Flexion (L2) 4 Good Extension (S1) 4- Good- Abduction 4+ Good+ Adduction 4+ Good+ External Rotation 4- Good- Internal Rotation 4 Good Knee Strength Knee Manual Muscle Testing mk Flexion (S2) 5 Normal Extension (L3) 5 Normal Ankle/Foot Strength Ankle and Foot Manual Muscle Testing Right Dorsiflexion (L4) 4 Good Plantarflexion (S1) 5 Normal Left Dorsiflexion (L4) 5 Normal Plantarflexion (S1) 5 Normal PT-OP-Q Treatments Start: 09/12/19 08:01 Freq: Status: Active Protocol: Document 09/12/19 08:13 SAK (Rec: 09/12/19 16:22 SAK [id number]) Self-Care/Home Management Treatment Education Patient Education Body Mechanics,Home Exercise Program,Pain Management, Posture Other Education benefits of aquatic therapy PT-OP-S Aquatic Treatment Start: 09/12/19 08:01 Freq: Status: Active Protocol: Document 09/29/19 12:30 LJ (Rec: 09/29/19 16:39 LJ [id number]) Aquatics Treatment Pool Entry/Exit Pool Entry/Exit Method Stairs Assistance Independent Water Walking [place] December Water Level Chest Level Level of Assistance Standby Assistance december Water Level Chest Level Level of Assistance Standby Assistance,Verbal Cues Comments UEs moving water side to side Sideways Water Level Chest Level Level of Assistance Standby Assistance,Verbal Cues Comments arms- ab,add; horizontal ab,ad alternating backward Water Level Chest Level Level of Assistance Standby Assistance,Verbal Cues Comments forward bs Forwards Water Level Chest Level Level of Assistance Standby Assistance,Verbal Cues Lower Extremity Exercises hip figure 8 Body Position Standing Water Level Chest Level Reps/Duration 10 B Comments no hh on wall HS curls Body Position Standing Reps/Duration 10x2 hip circumduction-CW/CCW Body Position Standing Reps/Duration 10x2 bilaterally each direction hip ab/ad Body Position Standing Water Level Chest Level Reps/Duration 10x2 Comments crossover in back w/in pain- free range Lower Extremity Stretches hamstring, ITB Body Position Standing Water Level Chest Level Equipment Small Noodle Reps/Duration 2x 30 [place] Activities [place] Activities Bicycle,Bicycle Backwards, Cross Country,Running Other Activities running involved pushing BBs under the surface to hip level pendulums plank for stabilization Equipment large flotation belt, med BBs Duration 15 Comments traction with sm blue float and #5 on ankles 8 min PT-OP-T Assessment and Plan Start: 09/12/19 08:01 Freq: Status: Active Protocol: Document 09/29/19 12:30 DIANNE (Rec: 09/29/19 16:39 LJ [id number]) Physical Therapy Assessment Rehab Potential Rehabilitation Potential Good Evaluation Complexity Number of Personal Factors/Comorbidities 1-2 Number of Body Systems Impaired 3 Clinical Presentation at Evaluation Evolving Impairments Impairments Activity Tolerance,Pain, Strength Goals Three Impairment activity intolerance: Oswestry Disability Index score 42% Short Term Goal (STG) Improve activty tolerance as evidenced by decrease in Oswestry Disability Index score to no greater than 30% STG Duration 10/25/19 Carburetor Specialist Goal (LTG) Decrease Oswestry score to no greater than 15% LTG Duration 12/11/19 Two Impairment weakness and decreased ability to activate core musculature for spinal stab Short Term Goal (STG) Instruct in aquatic exercise program for purposes of strengthening and spinal stabilization STG Duration 10/25/19 Long-Term Goal (LTG) Patient to be independent with aquatic exercise program and demonstrate improvement in strength and spinal stabilization ability to at least 4+/5 LTG Duration 12/11/19 One Impairment pain 5/10 Short Term Goal (STG) Decrease pain to no greater than 3/10 in low back with all usual activities STG Duration 10/25/19 Long-Term Goal (LTG) Decrease pain to no greater than 1-2/10 with all usual activities LTG Duration 12/11/19 Assessment Summary Assessment Pt improving with self- correction in postural alignment. No c/o pain with exercises. Pt verbalized that she would like to go to pool on her own on days btwn therapy sessions Physical Therapy Plan Frequency and Duration Frequency of Treatment 2x/Week Duration of Treatment 12 wks Plan of Care Start Date 09/12/19 Plan of Care End Date 12/11/19 Therapeutic Interventions Therapeutic Interventions Aquatic Therapy,Home Exercise Program,Patient/Caregiver Education,Self-Care/Home Management Next Visit Focus/Plan Next Note Type Treatment Note Next Visit Plan Progress aquatic exercises with emphasis on core strengthening and stabilization as tolerated. Increase intensity of exercises also.
--- NOTE | 2019-10-23 17:48 | PT.OTN ---
Current Diagnoses Radiculopathy, lumbar region (10/23/19) Weakness (10/23/19) Physical Therapy Treatment Note PT-OP-A Visit Information Start: 09/12/19 08:01 Freq: Status: Active Protocol: Document 10/23/19 11:45 LJ (Rec: 10/23/19 17:47 LJ [id number]) Out-Patient Physical Therapy Visit Information Visit Information Visit Type Aquatic Treatment Note Visit Start Time 11:45 Visit Stop Time 12:30 Total Visit Minutes 45 Visit Number 7 Number of ROUGHER OPERATOR Visits 3 PT-OP-B Current Condition Start: 09/12/19 08:01 Freq: Status: Active Protocol: Document 09/12/19 08:13 SAK (Rec: 09/12/19 09:11 SAK [id number]) Current Condition History of Current Condition Onset Date 2 years Current Complaints LBP with radicular symptoms History of Current Condition Patient presents to PT with c/ o function-limiting LBP with radicular symptoms including pain and LE weakness as well as numbness 2nd and 3rd toes all the time Prior fusion lumbar 2 years ago. Also 2 fusions cervical spine in 1989. Currently doing land-based PT with Joe Flores for hip pain right greater than left. Does HEP as well as yoga at 2 local studios and at home. Some radiating pain into legs and buttocks. Has obtained new bed recently for improved support. . Legs both give way at times, no falls but has caught herself. Uses CPAP for sleep. Questionable history of osteopenia. History of arthritis and right KENY. Prior Treatments and Tests Right KENY, possible ostopenia. MRI recently showed. Wears custom orthotics made 20 years ago. Future Testing and Treatments Planned none planned. Will be following up with doctor regarding MRI. Treatment Goals Patient/Caregiver Goals Minimize pain and be able to resume more active lifestyle Prior Functional Status Baseline Function- ADL's Independent Baseline Function- Mobility Independent Baseline Function- Gait independnet Baseline Function- Work/School retired Baseline Function- Recreation/Hobbies walking, yoga Current Functional Impairments (Reported) Functional Limitations- ADL's painful Functional Limitations- Mobility/Gait painful Functional Limitations- Work/School retired Functional Limitations- Recreation/ painful, tries to modify due Hobbies to KENY and lumbar fusion PT-OP-C Subjective Start: 09/12/19 08:01 Freq: Status: Active Protocol: Document 10/23/19 11:45 LJ (Rec: 10/23/19 17:47 LJ [id number]) OP-PT Subjective Patient Comments Patient Comments Pt returned from traveling. States she was able to swim front crawl stroke for 1/2 mile twice while on vacation. She had no pain either time PT-OP-F Manual Assessment Start: 09/12/19 08:01 Freq: Status: Active Protocol: Document 09/12/19 08:13 SAK (Rec: 09/12/19 09:43 SAK [id number]) Manual Assessments Soft Tissue Assessment Soft Tissue Mobility Assessment increased tightness bilateral lumbar paraspinals. Poor muscle tone bilateral gluteals Joint Mobility Assessment Joint Mobility Assessment NA due to prior lumbar fusion PT-OP-G Mobility & Gait Start: 09/12/19 08:01 Freq: Status: Active Protocol: Document 09/12/19 08:13 SAK (Rec: 09/12/19 09:43 SAK [id number]) OP Mobility Evaluation Functional Movements Squats modfied due to decreased hip ROM right (uses wedge with yoga) OP Gait Assessment Gait Gait Assistance Required: Independent Assistive Devices Assistive Device None PT-OP-H Neuro Start: 09/12/19 08:01 Freq: Status: Active Protocol: Document 09/12/19 08:13 SAK (Rec: 09/12/19 16:22 SAK [id number]) Sensation Evaluation Gross Sensation Gross Sensation Left LE Impaired PT-OP-J Posture/Palpation/Skin Start: 09/12/19 08:01 Freq: Status: Active Protocol: Document 09/12/19 08:13 SAK (Rec: 09/12/19 16:22 SAK [id number]) Posture Evaluation Position Standing L-Spine Posture Flattened Shoulder Posture (L) Rounded,(R) Rounded Pelvis Posture Neutral Hip Posture (L) Externally Rotated,(R) Externally Rotated Palpation Assessment Location One Palpation Location lumbar spine Palpation Findings Soft Tissue Tightness, Tenderness Skin Assessment Other Assessments Skin Assessment Comments intact. Old lumbar spine surgical scar well-healed with mobiity WNL PT-OP-K Range of Motion Start: 09/12/19 08:01 Freq: Status: Active Protocol: Document 09/12/19 08:13 SAK (Rec: 09/12/19 16:22 SAK [id number]) Lumbar Spine Range of Motion Lumbar Spine Active Testing Position Standing ROM Limitations Soft Tissue Tightness,Bony Restriction,Pain Comments Mod decrease in ROM all motions with c/o pain. Minimal motion occuring at lumbar spine. Hip Goniometric Range of Motion Hip mk Hip ROM WFL Yes Hip ROM Limitations Comments mild tightness mk hamstrings, moderate tightness bilateral quads and iliopsoas Ankle and Foot Goniometric Range of Motion Ankle and Foot mk Ankle/Foot ROM WFL Yes PT-OP-L Special Tests Start: 09/12/19 08:01 Freq: Status: Active Protocol: Document 09/12/19 08:13 [facility] (Rec: 09/12/19 16:22 [facility] [id number]) Special Tests Lumbar Spine Special Tests Straight Leg Raise Test Results negative Artemio Test Results positive mk Standing Flexion Test Results positive increase in symptoms Compression Test Results positive increase in symptoms PT-OP-M Strength Start: 09/12/19 08:01 Freq: Status: Active Protocol: Document 09/12/19 08:13 [facility] (Rec: 09/12/19 16:22 [facility] [id number]) Trunk Strength Trunk Manual Muscle Testing Flexion 4 Good Extension 4- Good- Core Stabilization decreased activation of transverse abdominis. Hip Strength Hip Manual Muscle Testing mk Flexion (L2) 4 Good Extension (S1) 4- Good- Abduction 4+ Good+ Adduction 4+ Good+ External Rotation 4- Good- Internal Rotation 4 Good Knee Strength Knee Manual Muscle Testing mk Flexion (S2) 5 Normal Extension (L3) 5 Normal Ankle/Foot Strength Ankle and Foot Manual Muscle Testing Right Dorsiflexion (L4) 4 Good Plantarflexion (S1) 5 Normal Left Dorsiflexion (L4) 5 Normal Plantarflexion (S1) 5 Normal PT-OP-Q Treatments Start: 09/12/19 08:01 Freq: Status: Active Protocol: Document 09/12/19 08:13 SAK (Rec: 09/12/19 16:22 [facility] [id number]) Self-Care/Home Management Treatment Education Patient Education Body Mechanics,Home Exercise Program,Pain Management, Posture Other Education benefits of aquatic therapy PT-OP-S Aquatic Treatment Start: 09/12/19 08:01 Freq: Status: Active Protocol: Document 10/23/19 11:45 LJ (Rec: 10/23/19 17:47 LJ [id number]) Aquatics Treatment Pool Entry/Exit Pool Entry/Exit Method Stairs Assistance Independent Water Walking [place] Water Level Chest Level Level of Assistance Verbal Cues [place] December Water Level Chest Level Level of Assistance Standby Assistance december Water Level Chest Level Level of Assistance Standby Assistance,Verbal Cues Comments UEs moving water side to side Sideways Water Level Chest Level Level of Assistance Standby Assistance,Verbal Cues Comments arms- ab,add; horizontal ab,ad alternating backward Water Level Chest Level Level of Assistance Standby Assistance,Verbal Cues Comments forward bs Forwards Water Level Chest Level Level of Assistance Standby Assistance,Verbal Cues Lower Extremity Exercises hip figure 8 Body Position Standing Water Level Chest Level Reps/Duration 10 B Comments no hh on wall HS curls Body Position Standing Reps/Duration 10x2 hip circumduction-CW/CCW Body Position Standing Reps/Duration 10x2 bilaterally each direction hip ab/ad Body Position Standing Water Level Chest Level Reps/Duration 10x2 Comments crossover in back w/in pain- free range hip flex/ext Body Position Standing Water Level Chest Level Reps/Duration 10x2 Lower Extremity Stretches hip flexors Body Position Standing Water Level Waist Level Reps/Duration 2x45 sec bilat DKTC, SKTC Body Position Standing Water Level Chest Level Reps/Duration 2x30 Comments at wall hamstring, ITB Body Position Standing Water Level Chest Level Equipment Small Noodle Reps/Duration 2x 30 Upper Extremity Exercises Pull downs Body Position Standing Equipment med barbells Reps/Duration 10 Comments emphasizing posture and core stabilization horiz ab,add Body Position Standing Reps/Duration 10x2 Comments emphasizing scap retraction [place] Activities [place] Activities Bicycle,Bicycle Backwards, Cross Country,Running Other Activities pendulums plank for stabilization Equipment large flotation belt, med BBs Duration 15 Comments traction with sm blue float and #5 on ankles 8 min PT-OP-T Assessment and Plan Start: 09/12/19 08:01 Freq: Status: Active Protocol: Document 10/23/19 11:45 DIANNE (Rec: 10/23/19 17:47 DIANNE [id number]) Physical Therapy Assessment Rehab Potential Rehabilitation Potential Good Evaluation Complexity Number of Personal Factors/Comorbidities 1-2 Number of Body Systems Impaired 3 Clinical Presentation at Evaluation Evolving Impairments Impairments Activity Tolerance,Pain, Strength Goals Three Impairment activity intolerance: Oswestry Disability Index score 42% Short Term Goal (STG) Improve activty tolerance as evidenced by decrease in Oswestry Disability Index score to no greater than 30% STG Duration 10/25/19 Solar/Renewable Energy Sales Goal (LTG) Decrease Oswestry score to no greater than 15% LTG Duration 12/11/19 Two Impairment weakness and decreased ability to activate core musculature for spinal stab Short Term Goal (STG) Instruct in aquatic exercise program for purposes of strengthening and spinal stabilization STG Duration 10/25/19 Solar/Renewable Energy Sales Goal (LTG) Patient to be independent with aquatic exercise program and demonstrate improvement in strength and spinal stabilization ability to at least 4+/5 LTG Duration 12/11/19 One Impairment pain 5/10 Short Term Goal (STG) Decrease pain to no greater than 3/10 in low back with all usual activities STG Duration 10/25/19 Shelter Goal (LTG) Decrease pain to no greater than 1-2/10 with all usual activities LTG Duration 12/11/19 Assessment Summary Assessment Pt had no complaints of pain. Due to a long duration without therapy the exercises were kept to a lower level with less exertion and resistance. Pt tolerated well with reporting difficulty with planks for stabilization and monster walks for balance. Physical Therapy Plan Frequency and Duration Frequency of Treatment 2x/Week Duration of Treatment 12 wks Plan of Care Start Date 09/12/19 Plan of Care End Date 12/11/19 Therapeutic Interventions Therapeutic Interventions Aquatic Therapy,Home Exercise Program,Patient/Caregiver Education,Self-Care/Home Management Next Visit Focus/Plan Next Note Type Treatment Note Next Visit Plan Progress aquatic exercises with emphasis on core strengthening and stabilization as tolerated. Increase intensity of exercises as pt tolerates.
--- NOTE | 2019-10-27 13:44 | PT.OTN ---
Current Diagnoses Radiculopathy, lumbar region (10/23/19) Weakness (10/23/19) Physical Therapy Treatment Note PT-OP-A Visit Information Start: 09/12/19 08:01 Freq: Status: Active Protocol: Document 10/27/19 11:00 LJ (Rec: 10/27/19 13:44 LJ [id number]) Out-Patient Physical Therapy Visit Information Visit Information Visit Type Aquatic Treatment Note Visit Start Time 11:00 Visit Stop Time 11:45 Total Visit Minutes 45 Visit Number 8 Number of CLAIMS SUPERVISOR Visits 4 PT-OP-B Current Condition Start: 09/12/19 08:01 Freq: Status: Active Protocol: Document 09/12/19 08:13 SAK (Rec: 09/12/19 09:11 SAK [id number]) Current Condition History of Current Condition Onset Date 2 years Current Complaints LBP with radicular symptoms History of Current Condition Patient presents to PT with c/ o function-limiting LBP with radicular symptoms including pain and LE weakness as well as numbness 2nd and 3rd toes all the time Prior fusion lumbar 2 years ago. Also 2 fusions cervical spine in 1989. Currently doing land-based PT with Joe Flores for hip pain right greater than left. Does HEP as well as yoga at 2 local studios and at home. Some radiating pain into legs and buttocks. Has obtained new bed recently for improved support. . Legs both give way at times, no falls but has caught herself. Uses CPAP for sleep. Questionable history of osteopenia. History of arthritis and right KENY. Prior Treatments and Tests Right KENY, possible ostopenia. MRI recently showed. Wears custom orthotics made 20 years ago. Future Testing and Treatments Planned none planned. Will be following up with doctor regarding MRI. Treatment Goals Patient/Caregiver Goals Minimize pain and be able to resume more active lifestyle Prior Functional Status Baseline Function- ADL's Independent Baseline Function- Mobility Independent Baseline Function- Gait independnet Baseline Function- Work/School retired Baseline Function- Recreation/Hobbies walking, yoga Current Functional Impairments (Reported) Functional Limitations- ADL's painful Functional Limitations- Mobility/Gait painful Functional Limitations- Work/School retired Functional Limitations- Recreation/ painful, tries to modify due Hobbies to KENY and lumbar fusion PT-OP-C Subjective Start: 09/12/19 08:01 Freq: Status: Active Protocol: Document 10/27/19 11:00 LJ (Rec: 10/27/19 13:44 LJ [id number]) OP-PT Subjective Patient Comments Patient Comments Pt went for a short hike then swam for 1/2 hour prior to therapy this session. Stated her hamstrings/glutes were sore like nerve sore PT-OP-F Manual Assessment Start: 09/12/19 08:01 Freq: Status: Active Protocol: Document 09/12/19 08:13 SAK (Rec: 09/12/19 09:43 SAK [id number]) Manual Assessments Soft Tissue Assessment Soft Tissue Mobility Assessment increased tightness bilateral lumbar paraspinals. Poor muscle tone bilateral gluteals Joint Mobility Assessment Joint Mobility Assessment NA due to prior lumbar fusion PT-OP-G Mobility & Gait Start: 09/12/19 08:01 Freq: Status: Active Protocol: Document 09/12/19 08:13 SAK (Rec: 09/12/19 09:43 SAK [id number]) OP Mobility Evaluation Functional Movements Squats modfied due to decreased hip ROM right (uses wedge with yoga) OP Gait Assessment Gait Gait Assistance Required: Independent Assistive Devices Assistive Device None PT-OP-H Neuro Start: 09/12/19 08:01 Freq: Status: Active Protocol: Document 09/12/19 08:13 SAK (Rec: 09/12/19 16:22 SAK [id number]) Sensation Evaluation Gross Sensation Gross Sensation Left LE Impaired PT-OP-J Posture/Palpation/Skin Start: 09/12/19 08:01 Freq: Status: Active Protocol: Document 09/12/19 08:13 SAK (Rec: 09/12/19 16:22 SAK [id number]) Posture Evaluation Position Standing L-Spine Posture Flattened Shoulder Posture (L) Rounded,(R) Rounded Pelvis Posture Neutral Hip Posture (L) Externally Rotated,(R) Externally Rotated Palpation Assessment Location One Palpation Location lumbar spine Palpation Findings Soft Tissue Tightness, Tenderness Skin Assessment Other Assessments Skin Assessment Comments intact. Old lumbar spine surgical scar well-healed with mobiity WNL PT-OP-K Range of Motion Start: 09/12/19 08:01 Freq: Status: Active Protocol: Document 09/12/19 08:13 SAK (Rec: 09/12/19 16:22 SAK [id number]) Lumbar Spine Range of Motion Lumbar Spine Active Testing Position Standing ROM Limitations Soft Tissue Tightness,Bony Restriction,Pain Comments Mod decrease in ROM all motions with c/o pain. Minimal motion occuring at lumbar spine. Hip Goniometric Range of Motion Hip mk Hip ROM WFL Yes Hip ROM Limitations Comments mild tightness mk hamstrings, moderate tightness bilateral quads and iliopsoas Ankle and Foot Goniometric Range of Motion Ankle and Foot mk Ankle/Foot ROM WFL Yes PT-OP-L Special Tests Start: 09/12/19 08:01 Freq: Status: Active Protocol: Document 09/12/19 08:13 SAK (Rec: 09/12/19 16:22 [facility] [id number]) Special Tests Lumbar Spine Special Tests Straight Leg Raise Test Results negative Artemio Test Results positive mk Standing Flexion Test Results positive increase in symptoms Compression Test Results positive increase in symptoms PT-OP-M Strength Start: 09/12/19 08:01 Freq: Status: Active Protocol: Document 09/12/19 08:13 SAK (Rec: 09/12/19 16:22 [facility] [id number]) Trunk Strength Trunk Manual Muscle Testing Flexion 4 Good Extension 4- Good- Core Stabilization decreased activation of transverse abdominis. Hip Strength Hip Manual Muscle Testing mk Flexion (L2) 4 Good Extension (S1) 4- Good- Abduction 4+ Good+ Adduction 4+ Good+ External Rotation 4- Good- Internal Rotation 4 Good Knee Strength Knee Manual Muscle Testing mk Flexion (S2) 5 Normal Extension (L3) 5 Normal Ankle/Foot Strength Ankle and Foot Manual Muscle Testing Right Dorsiflexion (L4) 4 Good Plantarflexion (S1) 5 Normal Left Dorsiflexion (L4) 5 Normal Plantarflexion (S1) 5 Normal PT-OP-Q Treatments Start: 09/12/19 08:01 Freq: Status: Active Protocol: Document 09/12/19 08:13 SAK (Rec: 09/12/19 16:22 [facility] [id number]) Self-Care/Home Management Treatment Education Patient Education Body Mechanics,Home Exercise Program,Pain Management, Posture Other Education benefits of aquatic therapy PT-OP-S Aquatic Treatment Start: 09/12/19 08:01 Freq: Status: Active Protocol: Document 10/27/19 11:00 LJ (Rec: 10/27/19 13:44 LJ [id number]) Aquatics Treatment Pool Entry/Exit Pool Entry/Exit Method Stairs Assistance Independent Water Walking [place] Water Level Chest Level Level of Assistance Verbal Cues [place] December Water Level Chest Level Level of Assistance Standby Assistance december Water Level Chest Level Level of Assistance Standby Assistance,Verbal Cues Comments UEs moving water side to side backward Water Level Chest Level Level of Assistance Standby Assistance,Verbal Cues Comments slow, large steps Lower Extremity Exercises hip figure 8 Body Position Standing Water Level Chest Level Equipment Ankle Weight- 2.5# Reps/Duration 10 B Comments no hh on wall HS curls Body Position Standing Water Level Chest Level Equipment Ankle Weight- 2.5# Reps/Duration 10x2 Comments no hh on wall hip circumduction-CW/CCW Body Position Standing Water Level Chest Level Equipment Ankle Weight- 2.5# Reps/Duration 10x2 bilaterally each direction hip ab/ad Body Position Standing Water Level Chest Level Equipment Ankle Weight- 2.5# Reps/Duration 10x2 hip flex/ext Body Position Standing Water Level Chest Level Equipment Ankle Weight- 2.5# Reps/Duration 10x2 Spinal Exercises Deep water DLS Body Position Standing Water Level [place] Equipment med barbells [place] Activities [place] Activities Bicycle,Bicycle Backwards, Cross Country,Running Other Activities pendulums plank for stabilization rotary ski balance on noodle-standing Equipment large flotation belt, med BBs Duration 15 PT-OP-T Assessment and Plan Start: 09/12/19 08:01 Freq: Status: Active Protocol: Document 10/27/19 11:00 DIANNE (Rec: 10/27/19 13:44 DIANNE [id number]) Physical Therapy Assessment Rehab Potential Rehabilitation Potential Good Evaluation Complexity Number of Personal Factors/Comorbidities 1-2 Number of Body Systems Impaired 3 Clinical Presentation at Evaluation Evolving Impairments Impairments Activity Tolerance,Pain, Strength Goals Three Impairment activity intolerance: Oswestry Disability Index score 42% Short Term Goal (STG) Improve activty tolerance as evidenced by decrease in Oswestry Disability Index score to no greater than 30% STG Duration 10/25/19 Half-Way Goal (LTG) Decrease Oswestry score to no greater than 15% LTG Duration 12/11/19 Two Impairment weakness and decreased ability to activate core musculature for spinal stab Short Term Goal (STG) Instruct in aquatic exercise program for purposes of strengthening and spinal stabilization STG Duration 10/25/19 [place] Packer Goal (LTG) Patient to be independent with aquatic exercise program and demonstrate improvement in strength and spinal stabilization ability to at least 4+/5 LTG Duration 12/11/19 One Impairment pain 5/10 Short Term Goal (STG) Decrease pain to no greater than 3/10 in low back with all usual activities STG Duration 10/25/19 Half-Way Goal (LTG) Decrease pain to no greater than 1-2/10 with all usual activities LTG Duration 12/11/19 Assessment Summary Assessment Pt tolerated treatment well with no pain this session. She was challenged with deep water stabilization exercises and balance but was able to perform them. Physical Therapy Plan Frequency and Duration Frequency of Treatment 2x/Week Duration of Treatment 12 wks Plan of Care Start Date 09/12/19 Plan of Care End Date 12/11/19 Therapeutic Interventions Therapeutic Interventions Aquatic Therapy,Home Exercise Program,Patient/Caregiver Education,Self-Care/Home Management Next Visit Focus/Plan Next Note Type Treatment Note Next Visit Plan Progress aquatic exercises with emphasis on core strengthening and stabilization as tolerated. Increase intensity of exercises as pt tolerates.
--- NOTE | 2019-11-01 16:35 | PT.OTN ---
Current Diagnoses Radiculopathy, lumbar region (11/01/19) Weakness (11/01/19) Physical Therapy Treatment Note PT-OP-A Visit Information Start: 09/12/19 08:01 Freq: Status: Active Protocol: Document 11/01/19 11:00 LJ (Rec: 11/01/19 16:35 LJ [id number]) Out-Patient Physical Therapy Visit Information Visit Information Visit Type Aquatic Treatment Note Visit Start Time 11:00 Visit Stop Time 11:45 Total Visit Minutes 45 Visit Number 9 Number of X RAY EQUIPMENT TESTER Visits 5 PT-OP-B Current Condition Start: 09/12/19 08:01 Freq: Status: Active Protocol: Document 09/12/19 08:13 SAK (Rec: 09/12/19 09:11 SAK [id number]) Current Condition History of Current Condition Onset Date 2 years Current Complaints LBP with radicular symptoms History of Current Condition Patient presents to PT with c/ o function-limiting LBP with radicular symptoms including pain and LE weakness as well as numbness 2nd and 3rd toes all the time Prior fusion lumbar 2 years ago. Also 2 fusions cervical spine in 1989. Currently doing land-based PT with Joe Flores for hip pain right greater than left. Does HEP as well as yoga at 2 local studios and at home. Some radiating pain into legs and buttocks. Has obtained new bed recently for improved support. . Legs both give way at times, no falls but has caught herself. Uses CPAP for sleep. Questionable history of osteopenia. History of arthritis and right KENY. Prior Treatments and Tests Right KENY, possible ostopenia. MRI recently showed. Wears custom orthotics made 20 years ago. Future Testing and Treatments Planned none planned. Will be following up with doctor regarding MRI. Treatment Goals Patient/Caregiver Goals Minimize pain and be able to resume more active lifestyle Prior Functional Status Baseline Function- ADL's Independent Baseline Function- Mobility Independent Baseline Function- Gait independnet Baseline Function- Work/School retired Baseline Function- Recreation/Hobbies walking, yoga Current Functional Impairments (Reported) Functional Limitations- ADL's painful Functional Limitations- Mobility/Gait painful Functional Limitations- Work/School retired Functional Limitations- Recreation/ painful, tries to modify due Hobbies to KENY and lumbar fusion PT-OP-C Subjective Start: 09/12/19 08:01 Freq: Status: Active Protocol: Document 11/01/19 11:00 LJ (Rec: 11/01/19 16:35 LJ [id number]) OP-PT Subjective Patient Comments Patient Comments Pt swam for 1/2 hour prior to therapy session. REports that she had no pain after previous aquatic therapy session PT-OP-F Manual Assessment Start: 09/12/19 08:01 Freq: Status: Active Protocol: Document 09/12/19 08:13 SAK (Rec: 09/12/19 09:43 SAK [id number]) Manual Assessments Soft Tissue Assessment Soft Tissue Mobility Assessment increased tightness bilateral lumbar paraspinals. Poor muscle tone bilateral gluteals Joint Mobility Assessment Joint Mobility Assessment NA due to prior lumbar fusion PT-OP-G Mobility & Gait Start: 09/12/19 08:01 Freq: Status: Active Protocol: Document 09/12/19 08:13 SAK (Rec: 09/12/19 09:43 SAK [id number]) OP Mobility Evaluation Functional Movements Squats modfied due to decreased hip ROM right (uses wedge with yoga) OP Gait Assessment Gait Gait Assistance Required: Independent Assistive Devices Assistive Device None PT-OP-H Neuro Start: 09/12/19 08:01 Freq: Status: Active Protocol: Document 09/12/19 08:13 SAK (Rec: 09/12/19 16:22 SAK [id number]) Sensation Evaluation Gross Sensation Gross Sensation Left LE Impaired PT-OP-J Posture/Palpation/Skin Start: 09/12/19 08:01 Freq: Status: Active Protocol: Document 09/12/19 08:13 SAK (Rec: 09/12/19 16:22 SAK [id number]) Posture Evaluation Position Standing L-Spine Posture Flattened Shoulder Posture (L) Rounded,(R) Rounded Pelvis Posture Neutral Hip Posture (L) Externally Rotated,(R) Externally Rotated Palpation Assessment Location One Palpation Location lumbar spine Palpation Findings Soft Tissue Tightness, Tenderness Skin Assessment Other Assessments Skin Assessment Comments intact. Old lumbar spine surgical scar well-healed with mobiity WNL PT-OP-K Range of Motion Start: 09/12/19 08:01 Freq: Status: Active Protocol: Document 09/12/19 08:13 SAK (Rec: 09/12/19 16:22 SAK [id number]) Lumbar Spine Range of Motion Lumbar Spine Active Testing Position Standing ROM Limitations Soft Tissue Tightness,Bony Restriction,Pain Comments Mod decrease in ROM all motions with c/o pain. Minimal motion occuring at lumbar spine. Hip Goniometric Range of Motion Hip mk Hip ROM WFL Yes Hip ROM Limitations Comments mild tightness mk hamstrings, moderate tightness bilateral quads and iliopsoas Ankle and Foot Goniometric Range of Motion Ankle and Foot mk Ankle/Foot ROM WFL Yes PT-OP-L Special Tests Start: 09/12/19 08:01 Freq: Status: Active Protocol: Document 09/12/19 08:13 [facility] (Rec: 09/12/19 16:22 [facility] [id number]) Special Tests Lumbar Spine Special Tests Straight Leg Raise Test Results negative Artemio Test Results positive mk Standing Flexion Test Results positive increase in symptoms Compression Test Results positive increase in symptoms PT-OP-M Strength Start: 09/12/19 08:01 Freq: Status: Active Protocol: Document 09/12/19 08:13 SAK (Rec: 09/12/19 16:22 [facility] [id number]) Trunk Strength Trunk Manual Muscle Testing Flexion 4 Good Extension 4- Good- Core Stabilization decreased activation of transverse abdominis. Hip Strength Hip Manual Muscle Testing mk Flexion (L2) 4 Good Extension (S1) 4- Good- Abduction 4+ Good+ Adduction 4+ Good+ External Rotation 4- Good- Internal Rotation 4 Good Knee Strength Knee Manual Muscle Testing mk Flexion (S2) 5 Normal Extension (L3) 5 Normal Ankle/Foot Strength Ankle and Foot Manual Muscle Testing Right Dorsiflexion (L4) 4 Good Plantarflexion (S1) 5 Normal Left Dorsiflexion (L4) 5 Normal Plantarflexion (S1) 5 Normal PT-OP-Q Treatments Start: 09/12/19 08:01 Freq: Status: Active Protocol: Document 09/12/19 08:13 SAK (Rec: 09/12/19 16:22 [facility] [id number]) Self-Care/Home Management Treatment Education Patient Education Body Mechanics,Home Exercise Program,Pain Management, Posture Other Education benefits of aquatic therapy PT-OP-S Aquatic Treatment Start: 09/12/19 08:01 Freq: Status: Active Protocol: Document 11/01/19 11:00 LJ (Rec: 11/01/19 16:35 LJ [id number]) Aquatics Treatment Pool Entry/Exit Pool Entry/Exit Method Stairs Assistance Independent Water Walking backward with hip circumduction-tandem, slow motion Water Level Waist Level Level of Assistance Verbal Cues [place] Water Level Chest Level Level of Assistance Verbal Cues Sideways Water Level Chest Level Level of Assistance Standby Assistance,Verbal Cues Comments arms- ab,add; horizontal ab,ad alternating backward Water Level Chest Level Level of Assistance Standby Assistance,Verbal Cues Comments slow, large steps Forwards Water Level Chest Level Level of Assistance Standby Assistance,Verbal Cues Comments focusing on posture Lower Extremity Exercises hip figure 8 Body Position Standing Water Level Chest Level Equipment Ankle Weight- 2.5# Reps/Duration 10 B Comments no hh on wall HS curls Body Position Standing Water Level Chest Level Equipment Ankle Weight- 2.5# Reps/Duration 10x2 Comments no hh on wall hip circumduction-CW/CCW Body Position Standing Water Level Chest Level Equipment Ankle Weight- 2.5# Reps/Duration 10x2 bilaterally each direction Comments keeping hip extension hip ab/ad Body Position Standing Water Level Chest Level Equipment Ankle Weight- 2.5# Reps/Duration 10x2 hip flex/ext Body Position Standing Water Level Chest Level Equipment Ankle Weight- 2.5# Reps/Duration 10x2 Comments minimizing flexion Lower Extremity Stretches hamstring, ITB Body Position Standing Water Level Chest Level Equipment Small Noodle Reps/Duration 2x 30 Spinal Exercises wonder board Body Position Sitting Water Level Chest Level Reps/Duration 45 min Comments static and dynamic [place] Activities [place] Activities Bicycle,Bicycle Backwards, Cross [place] Other Activities pendulums plank for stabilization rotary ski Equipment large flotation belt, med BBs Duration 15 Comments traction with sm blue float and #5 on ankles 6 min PT-OP-T Assessment and Plan Start: 09/12/19 08:01 Freq: Status: Active Protocol: Document 11/01/19 11:00 DIANNE (Rec: 11/01/19 16:35 DIANNE [email or web address]) Physical Therapy Assessment Rehab Potential Rehabilitation Potential Good Evaluation Complexity Number of Personal Factors/Comorbidities 1-2 Number of Body Systems Impaired 3 Clinical Presentation at Evaluation Evolving Impairments Impairments Activity Tolerance,Pain, Strength Other Concerns Barriers to Rehabilitation prior lumbar fusion, right KENY Goals Three Impairment activity intolerance: Oswestry Disability Index score 42% Short Term Goal (STG) Improve activty tolerance as evidenced by decrease in Oswestry Disability Index score to no greater than 30% STG Duration 10/25/19 Halfway Goal (LTG) Decrease Oswestry score to no greater than 15% LTG Duration 12/11/19 Two Impairment weakness and decreased ability to activate core musculature for spinal stab Short Term Goal (STG) Instruct in aquatic exercise program for purposes of strengthening and spinal stabilization STG Duration 10/25/19 Halfway Goal (LTG) Patient to be independent with aquatic exercise program and demonstrate improvement in strength and spinal stabilization ability to at least 4+/5 LTG Duration 12/11/19 One Impairment pain 5/10 Short Term Goal (STG) Decrease pain to no greater than 3/10 in low back with all usual activities STG Duration 10/25/19 Fortune Cookie Maker Goal (LTG) Decrease pain to no greater than 1-2/10 with all usual activities LTG Duration 12/11/19 Assessment Summary Assessment Pt tolerated treatment well with no pain this session. Wonder board exercises challenged pt with stabilization. She required assist getting onto board then SBA with verbal cues thereafter. Improved stabilization in deep water planks. Physical Therapy Plan Frequency and Duration Frequency of Treatment 2x/Week Duration of Treatment 12 wks Plan of Care Start Date 09/12/19 Plan of Care End Date 12/11/19 Therapeutic Interventions Therapeutic Interventions Aquatic Therapy,Home Exercise Program,Patient/Caregiver Education,Self-Care/Home Management Next Visit Focus/Plan Next Note Type Treatment Note Next Visit Plan Progress aquatic exercises with emphasis on core strengthening and stabilization as tolerated. Increase intensity of exercises as pt tolerates.
--- NOTE | 2019-11-03 15:38 | PT.OTN ---
Current Diagnoses Radiculopathy, lumbar region (11/03/19) Weakness (11/03/19) Physical Therapy Treatment Note PT-OP-A Visit Information Start: 09/12/19 08:01 Freq: Status: Active Protocol: Document 11/03/19 10:15 LJ (Rec: 11/03/19 15:38 LJ [id number]) Out-Patient Physical Therapy Visit Information Visit Information Visit Type Aquatic Treatment Note Visit Start Time 10:15 Visit Stop Time 11:00 Total Visit Minutes 45 Visit Number 10 Number of LIBRARY ASSOCIATE Visits 6 PT-OP-B Current Condition Start: 09/12/19 08:01 Freq: Status: Active Protocol: Document 09/12/19 08:13 SAK (Rec: 09/12/19 09:11 SAK [id number]) Current Condition History of Current Condition Onset Date 2 years Current Complaints LBP with radicular symptoms History of Current Condition Patient presents to PT with c/ o function-limiting LBP with radicular symptoms including pain and LE weakness as well as numbness 2nd and 3rd toes all the time Prior fusion lumbar 2 years ago. Also 2 fusions cervical spine in 1989. Currently doing land-based PT with Joe Flores for hip pain right greater than left. Does HEP as well as yoga at 2 local studios and at home. Some radiating pain into legs and buttocks. Has obtained new bed recently for improved support. . Legs both give way at times, no falls but has caught herself. Uses CPAP for sleep. Questionable history of osteopenia. History of arthritis and right KENY. Prior Treatments and Tests Right KENY, possible ostopenia. MRI recently showed. Wears custom orthotics made 20 years ago. Future Testing and Treatments Planned none planned. Will be following up with doctor regarding MRI. Treatment Goals Patient/Caregiver Goals Minimize pain and be able to resume more active lifestyle Prior Functional Status Baseline Function- ADL's Independent Baseline Function- Mobility Independent Baseline Function- Gait independnet Baseline Function- Work/School retired Baseline Function- Recreation/Hobbies walking, yoga Current Functional Impairments (Reported) Functional Limitations- ADL's painful Functional Limitations- Mobility/Gait painful Functional Limitations- Work/School retired Functional Limitations- Recreation/ painful, tries to modify due Hobbies to KENY and lumbar fusion PT-OP-C Subjective Start: 09/12/19 08:01 Freq: Status: Active Protocol: Document 11/03/19 10:15 LJ (Rec: 11/03/19 15:38 LJ [id number]) OP-PT Subjective Patient Comments Patient Comments Pt swam again for 1/2 hour prior to therapy. States she is feeling much better and stronger since doing aquatic therapy. Very happy with her progress PT-OP-F Manual Assessment Start: 09/12/19 08:01 Freq: Status: Active Protocol: Document 09/12/19 08:13 SAK (Rec: 09/12/19 09:43 SAK [id number]) Manual Assessments Soft Tissue Assessment Soft Tissue Mobility Assessment increased tightness bilateral lumbar paraspinals. Poor muscle tone bilateral gluteals Joint Mobility Assessment Joint Mobility Assessment NA due to prior lumbar fusion PT-OP-G Mobility & Gait Start: 09/12/19 08:01 Freq: Status: Active Protocol: Document 09/12/19 08:13 SAK (Rec: 09/12/19 09:43 SAK [id number]) OP Mobility Evaluation Functional Movements Squats modfied due to decreased hip ROM right (uses wedge with yoga) OP Gait Assessment Gait Gait Assistance Required: Independent Assistive Devices Assistive Device None PT-OP-H Neuro Start: 09/12/19 08:01 Freq: Status: Active Protocol: Document 09/12/19 08:13 SAK (Rec: 09/12/19 16:22 SAK [id number]) Sensation Evaluation Gross Sensation Gross Sensation Left LE Impaired PT-OP-J Posture/Palpation/Skin Start: 09/12/19 08:01 Freq: Status: Active Protocol: Document 09/12/19 08:13 SAK (Rec: 09/12/19 16:22 SAK [id number]) Posture Evaluation Position Standing L-Spine Posture Flattened Shoulder Posture (L) Rounded,(R) Rounded Pelvis Posture Neutral Hip Posture (L) Externally Rotated,(R) Externally Rotated Palpation Assessment Location One Palpation Location lumbar spine Palpation Findings Soft Tissue Tightness, Tenderness Skin Assessment Other Assessments Skin Assessment Comments intact. Old lumbar spine surgical scar well-healed with mobiity WNL PT-OP-K Range of Motion Start: 09/12/19 08:01 Freq: Status: Active Protocol: Document 09/12/19 08:13 SAK (Rec: 09/12/19 16:22 SAK [id number]) Lumbar Spine Range of Motion Lumbar Spine Active Testing Position Standing ROM Limitations Soft Tissue Tightness,Bony Restriction,Pain Comments Mod decrease in ROM all motions with c/o pain. Minimal motion occuring at lumbar spine. Hip Goniometric Range of Motion Hip mk Hip ROM WFL Yes Hip ROM Limitations Comments mild tightness mk hamstrings, moderate tightness bilateral quads and iliopsoas Ankle and Foot Goniometric Range of Motion Ankle and Foot mk Ankle/Foot ROM WFL Yes PT-OP-L Special Tests Start: 09/12/19 08:01 Freq: Status: Active Protocol: Document 09/12/19 08:13 [facility] (Rec: 09/12/19 16:22 [facility] [id number]) Special Tests Lumbar Spine Special Tests Straight Leg Raise Test Results negative Artemio Test Results positive mk Standing Flexion Test Results positive increase in symptoms Compression Test Results positive increase in symptoms PT-OP-M Strength Start: 09/12/19 08:01 Freq: Status: Active Protocol: Document 09/12/19 08:13 [facility] (Rec: 09/12/19 16:22 [facility] [id number]) Trunk Strength Trunk Manual Muscle Testing Flexion 4 Good Extension 4- Good- Core Stabilization decreased activation of transverse abdominis. Hip Strength Hip Manual Muscle Testing mk Flexion (L2) 4 Good Extension (S1) 4- Good- Abduction 4+ Good+ Adduction 4+ Good+ External Rotation 4- Good- Internal Rotation 4 Good Knee Strength Knee Manual Muscle Testing mk Flexion (S2) 5 Normal Extension (L3) 5 Normal Ankle/Foot Strength Ankle and Foot Manual Muscle Testing Right Dorsiflexion (L4) 4 Good Plantarflexion (S1) 5 Normal Left Dorsiflexion (L4) 5 Normal Plantarflexion (S1) 5 Normal PT-OP-Q Treatments Start: 09/12/19 08:01 Freq: Status: Active Protocol: Document 09/12/19 08:13 [facility] (Rec: 09/12/19 16:22 [facility] [id number]) Self-Care/Home Management Treatment Education Patient Education Body Mechanics,Home Exercise Program,Pain Management, Posture Other Education benefits of aquatic therapy PT-OP-S Aquatic Treatment Start: 09/12/19 08:01 Freq: Status: Active Protocol: Document 11/03/19 10:15 LJ (Rec: 11/03/19 15:38 LJ [id number]) Aquatics Treatment Water Walking stretchcordz Water Level Waist Level Level of Assistance Verbal Cues Comments forward and backward at various tensions forward and backward with submerged kick board Level of Assistance Verbal Cues Lower Extremity Stretches DKTC, SKTC Body Position Standing Water Level Chest Level Reps/Duration 2x30 Comments at wall hamstring, ITB Body Position Standing Water Level Chest Level Equipment Small Noodle Reps/Duration 2x 30 Upper Extremity Exercises Pull downs Body Position Standing Equipment med barbells Reps/Duration 10 Comments emphasizing posture and core stabilization Spinal Exercises kneeling on wonderboard Water Level Neck Level Reps/Duration 6 min Comments static and dynamic wonder board Body Position Sitting Water Level Chest Level Reps/Duration 15 min Comments static and dynamic PT-OP-T Assessment and Plan Start: 09/12/19 08:01 Freq: Status: Active Protocol: Document 11/03/19 10:15 DIANNE (Rec: 11/03/19 15:38 DIANNE [id number]) Physical Therapy Assessment Rehab Potential Rehabilitation Potential Good Evaluation Complexity Number of Personal Factors/Comorbidities 1-2 Number of Body Systems Impaired 3 Clinical Presentation at Evaluation Evolving Impairments Impairments Activity Tolerance,Pain, Strength Other Concerns Barriers to Rehabilitation prior lumbar fusion, right KENY Goals Three Impairment activity intolerance: Oswestry Disability Index score 42% Short Term Goal (STG) Improve activty tolerance as evidenced by decrease in Oswestry Disability Index score to no greater than 30% STG Duration 10/25/19 [facility]iary Goal (LTG) Decrease Oswestry score to no greater than 15% LTG Duration 12/11/19 Two Impairment weakness and decreased ability to activate core musculature for spinal stab Short Term Goal (STG) Instruct in aquatic exercise program for purposes of strengthening and spinal stabilization STG Duration 10/25/19 Penitentiary Goal (LTG) Patient to be independent with aquatic exercise program and demonstrate improvement in strength and spinal stabilization ability to at least 4+/5 LTG Duration 12/11/19 One Impairment pain 5/10 Short Term Goal (STG) Decrease pain to no greater than 3/10 in low back with all usual activities STG Duration 10/25/19 Outreach Clinician Goal (LTG) Decrease pain to no greater than 1-2/10 with all usual activities LTG Duration 12/11/19 Assessment Summary Assessment Pt did very well on wonderboard both in sitting and kneeling. Challenged with getting on board for kneeling position but was very stable after several minutes being able to move herself from deep water to shallow without falling off. She has progressed very well with spinal stabilization exercises and demonstrates increased strength and endurance. Physical Therapy Plan Frequency and Duration Frequency of Treatment 2x/Week Duration of Treatment 12 wks Plan of Care Start Date 09/12/19 Plan of Care End Date 12/11/19 Therapeutic Interventions Therapeutic Interventions Aquatic Therapy,Home Exercise Program,Patient/Caregiver Education,Self-Care/Home Management Next Visit Focus/Plan Next Note Type Treatment Note Next Visit Plan Progress aquatic exercises with emphasis on core strengthening and stabilization as tolerated. Increase intensity of exercises as pt tolerates.
--- NOTE | 2019-11-08 16:38 | PT.OTN ---
Current Diagnoses Radiculopathy, lumbar region (11/08/19) Weakness (11/08/19) Physical Therapy Treatment Note PT-OP-A Visit Information Start: 09/12/19 08:01 Freq: Status: Active Protocol: Document 11/08/19 16:26 SAK (Rec: 11/08/19 16:38 SAK [id number]) Out-Patient Physical Therapy Visit Information Visit Information Visit Type Aquatic Treatment Note Visit Start Time 10:15 Visit Stop Time 11:00 Total Visit Minutes 45 Visit Number 11 Number of FURNITURE ASSEMBLY SUPERVISOR Visits 0 PT-OP-B Current Condition Start: 09/12/19 08:01 Freq: Status: Active Protocol: Document 09/12/19 08:13 SAK (Rec: 09/12/19 09:11 [facility] [id number]) Current Condition History of Current Condition Onset Date 2 years Current Complaints LBP with radicular symptoms History of Current Condition Patient presents to PT with c/ o function-limiting LBP with radicular symptoms including pain and LE weakness as well as numbness 2nd and 3rd toes all the time Prior fusion lumbar 2 years ago. Also 2 fusions cervical spine in 1989. Currently doing land-based PT with Joe Flores for hip pain right greater than left. Does HEP as well as yoga at 2 local studios and at home. Some radiating pain into legs and buttocks. Has obtained new bed recently for improved support. . Legs both give way at times, no falls but has caught herself. Uses CPAP for sleep. Questionable history of osteopenia. History of arthritis and right KENY. Prior Treatments and Tests Right KENY, possible ostopenia. MRI recently showed. Wears custom orthotics made 20 years ago. Future Testing and Treatments Planned none planned. Will be following up with doctor regarding MRI. Treatment Goals Patient/Caregiver Goals Minimize pain and be able to resume more active lifestyle Prior Functional Status Baseline Function- ADL's Independent Baseline Function- Mobility Independent Baseline Function- Gait independnet Baseline Function- Work/School retired Baseline Function- Recreation/Hobbies walking, yoga Current Functional Impairments (Reported) Functional Limitations- ADL's painful Functional Limitations- Mobility/Gait painful Functional Limitations- Work/School retired Functional Limitations- Recreation/ painful, tries to modify due Hobbies to KENY and lumbar fusion PT-OP-C Subjective Start: 09/12/19 08:01 Freq: Status: Active Protocol: Document 11/08/19 16:26 SAK (Rec: 11/08/19 16:38 [facility] [id number]) OP-PT Subjective Patient Comments Patient Comments Reports she feels much better when she does her HEP and aquatic therapy, pain increases if she doesn't. Pleased with progress.Wants to continue to decrease her pain PT-OP-F Manual Assessment Start: 09/12/19 08:01 Freq: Status: Active Protocol: Document 09/12/19 08:13 SAK (Rec: 09/12/19 09:43 [facility] [id number]) Manual Assessments Soft Tissue Assessment Soft Tissue Mobility Assessment increased tightness bilateral lumbar paraspinals. Poor muscle tone bilateral gluteals Joint Mobility Assessment Joint Mobility Assessment NA due to prior lumbar fusion PT-OP-G Mobility & Gait Start: 09/12/19 08:01 Freq: Status: Active Protocol: Document 09/12/19 08:13 SAK (Rec: 09/12/19 09:43 [facility] [id number]) OP Mobility Evaluation Functional Movements Squats modfied due to decreased hip ROM right (uses wedge with yoga) OP Gait Assessment Gait Gait Assistance Required: Independent Assistive Devices Assistive Device None PT-OP-H Neuro Start: 09/12/19 08:01 Freq: Status: Active Protocol: Document 09/12/19 08:13 SAK (Rec: 09/12/19 16:22 [facility] [id number]) Sensation Evaluation Gross Sensation Gross Sensation Left LE Impaired PT-OP-J Posture/Palpation/Skin Start: 09/12/19 08:01 Freq: Status: Active Protocol: Document 09/12/19 08:13 SAK (Rec: 09/12/19 16:22 [facility] [id number]) Posture Evaluation Position Standing L-Spine Posture Flattened Shoulder Posture (L) Rounded,(R) Rounded Pelvis Posture Neutral Hip Posture (L) Externally Rotated,(R) Externally Rotated Palpation Assessment Location One Palpation Location lumbar spine Palpation Findings Soft Tissue Tightness, Tenderness Skin Assessment Other Assessments Skin Assessment Comments intact. Old lumbar spine surgical scar well-healed with mobiity WNL PT-OP-K Range of Motion Start: 09/12/19 08:01 Freq: Status: Active Protocol: Document 09/12/19 08:13 SAK (Rec: 09/12/19 16:22 [facility] [id number]) Lumbar Spine Range of Motion Lumbar Spine Active Testing Position Standing ROM Limitations Soft Tissue Tightness,Bony Restriction,Pain Comments Mod decrease in ROM all motions with c/o pain. Minimal motion occuring at lumbar spine. Hip Goniometric Range of Motion Hip mk Hip ROM WFL Yes Hip ROM Limitations Comments mild tightness mk hamstrings, moderate tightness bilateral quads and iliopsoas Ankle and Foot Goniometric Range of Motion Ankle and Foot mk Ankle/Foot ROM WFL Yes PT-OP-L Special Tests Start: 09/12/19 08:01 Freq: Status: Active Protocol: Document 09/12/19 08:13 [facility] (Rec: 09/12/19 16:22 [facility] [id number]) Special Tests Lumbar Spine Special Tests Straight Leg Raise Test Results negative Artemio Test Results positive km Standing Flexion Test Results positive increase in symptoms Compression Test Results positive increase in symptoms PT-OP-M Strength Start: 09/12/19 08:01 Freq: Status: Active Protocol: Document 09/12/19 08:13 SAK (Rec: 09/12/19 16:22 [facility] [id number]) Trunk Strength Trunk Manual Muscle Testing Flexion 4 Good Extension 4- Good- Core Stabilization decreased activation of transverse abdominis. Hip Strength Hip Manual Muscle Testing mk Flexion (L2) 4 Good Extension (S1) 4- Good- Abduction 4+ Good+ Adduction 4+ Good+ External Rotation 4- Good- Internal Rotation 4 Good Knee Strength Knee Manual Muscle Testing mk Flexion (S2) 5 Normal Extension (L3) 5 Normal Ankle/Foot Strength Ankle and Foot Manual Muscle Testing Right Dorsiflexion (L4) 4 Good Plantarflexion (S1) 5 Normal Left Dorsiflexion (L4) 5 Normal Plantarflexion (S1) 5 Normal PT-OP-Q Treatments Start: 09/12/19 08:01 Freq: Status: Active Protocol: Document 09/12/19 08:13 SAK (Rec: 09/12/19 16:22 [facility] [id number]) Self-Care/Home Management Treatment Education Patient Education Body Mechanics,Home Exercise Program,Pain Management, Posture Other Education benefits of aquatic therapy PT-OP-S Aquatic Treatment Start: 09/12/19 08:01 Freq: Status: Active Protocol: Document 11/08/19 16:26 SAK (Rec: 11/08/19 16:38 [facility] [id number]) Aquatics Treatment Pool Entry/Exit Pool Entry/Exit Method Stairs Assistance Independent Water Walking stretchcordz Water Level Waist Level Level of Assistance Verbal Cues Comments backward at various tensions forward and backward with submerged kick board Level of Assistance Verbal Cues Sideways Water Level Chest Level Level of Assistance Standby Assistance,Verbal Cues Comments arms- ab,add; horizontal ab,ad alternating backward Water Level Chest Level Level of Assistance Standby Assistance,Verbal Cues Comments emphasis on neutral postural alignment Lower Extremity Stretches hamstring, ITB Body Position Standing Water Level Chest Level Equipment Small Noodle Reps/Duration 2x 30 Upper Extremity Exercises Pull downs Body Position Standing Equipment long barbells Reps/Duration 15 Comments emphasizing posture and core stabilization Spinal Exercises trunk rotation Equipment stretchcordz Reps/Duration 12 x ea direction long barbell stand Details with reverse squats Reps/Duration 10x Comments emphasis on core stabilization kneeling on wonderboard Water Level Neck Level Reps/Duration 6 min Comments static and dynamic wonder board Body Position Sitting Water Level Chest Level Reps/Duration 5 min Comments static and dynamic [place] Activities [place] Activities Bicycle,Bicycle Backwards, [place] Other Activities 5 rounds intervals 30:30 Equipment large flotation belt, med BBs Duration 15 Comments traction with small [place] blue float and #5 on ankles x 10 min PT-OP-T Assessment and Plan Start: 09/12/19 08:01 Freq: Status: Active Protocol: Document 11/08/19 16:26 CLAIR (Rec: 11/08/19 16:38 [facility] [id number]) Physical Therapy Assessment Rehab Potential Rehabilitation Potential Good Evaluation Complexity Number of Personal Factors/Comorbidities 1-2 Number of Body Systems Impaired 3 Clinical Presentation at Evaluation Evolving Impairments Impairments Activity Tolerance,Pain, Strength Other Concerns Barriers to Rehabilitation prior lumbar fusion, right KENY Goals Three Impairment activity intolerance: Oswestry Disability Index score 42% Short Term Goal (STG) Improve activty tolerance as evidenced by decrease in Oswestry Disability Index score to no greater than 30% 11/08/19: good progress STG Duration 10/25/19 Cork Sorter Goal (LTG) Decrease Oswestry score to no greater than 15% LTG Duration 12/11/19 Two Impairment weakness and decreased ability to activate core musculature for spinal stab Short Term Goal (STG) Instruct in aquatic exercise program for purposes of strengthening and spinal stabilization 11/08/19: good progress STG Duration 10/25/19 Custodial Goal (LTG) Patient to be independent with aquatic exercise program and demonstrate improvement in strength and spinal stabilization ability to at least 4+/5 LTG Duration 12/11/19 One Impairment pain 5/10 Short Term Goal (STG) Decrease pain to no greater than 3/10 in low back with all usual activities 11/08/19: good progress as long as does exercises at home and in pool. STG Duration 10/25/19 Cork Sorter Goal (LTG) Decrease pain to no greater than 1-2/10 with all usual activities LTG Duration 12/11/19 Assessment Summary Assessment Continues to progress well with aquatic exercise program. Has good potential for further improvement. Physical Therapy Plan Frequency and Duration Frequency of Treatment 2x/Week Duration of Treatment 12 wks Plan of Care Start Date 09/12/19 Plan of Care End Date 12/11/19 Therapeutic Interventions Therapeutic Interventions Aquatic Therapy,Home Exercise Program,Patient/Caregiver Education,Self-Care/Home Management Next Visit Focus/Plan Next Note Type Treatment Note Next Visit Plan Continue progression of aquatic therapy exercise program with emphasis on core strengthening and stabilization.
--- NOTE | 2019-11-08 16:52 | PT.OPPN ---
Current Diagnoses Radiculopathy, lumbar region (11/08/19) Weakness (11/08/19) Physical Therapy Progress Note PT-OP-A Visit Information Start: 09/12/19 08:01 Freq: Status: Active Protocol: Document 11/08/19 16:26 SAK (Rec: 11/08/19 16:38 SAK [id number]) Out-Patient Physical Therapy Visit Information Visit Information Visit Type Aquatic Treatment Note Visit Start Time 10:15 Visit Stop Time 11:00 Total Visit Minutes 45 Visit Number 11 Number of ASSOCIATE CURATOR Visits 0 PT-OP-B Current Condition Start: 09/12/19 08:01 Freq: Status: Active Protocol: Document 09/12/19 08:13 SAK (Rec: 09/12/19 09:11 [facility] [id number]) Current Condition History of Current Condition Onset Date 2 years Current Complaints LBP with radicular symptoms History of Current Condition Patient presents to PT with c/ o function-limiting LBP with radicular symptoms including pain and LE weakness as well as numbness 2nd and 3rd toes all the time Prior fusion lumbar 2 years ago. Also 2 fusions cervical spine in 1989. Currently doing land-based PT with Joe Flores for hip pain right greater than left. Does HEP as well as yoga at 2 local studios and at home. Some radiating pain into legs and buttocks. Has obtained new bed recently for improved support. . Legs both give way at times, no falls but has caught herself. Uses CPAP for sleep. Questionable history of osteopenia. History of arthritis and right KENY. Prior Treatments and Tests Right KENY, possible ostopenia. MRI recently showed. Wears custom orthotics made 20 years ago. Future Testing and Treatments Planned none planned. Will be following up with doctor regarding MRI. Treatment Goals Patient/Caregiver Goals Minimize pain and be able to resume more active lifestyle Prior Functional Status Baseline Function- ADL's Independent Baseline Function- Mobility Independent Baseline Function- Gait independnet Baseline Function- Work/School retired Baseline Function- Recreation/Hobbies walking, yoga Current Functional Impairments (Reported) Functional Limitations- ADL's painful Functional Limitations- Mobility/Gait painful Functional Limitations- Work/School retired Functional Limitations- Recreation/ painful, tries to modify due Hobbies to KENY and lumbar fusion PT-OP-C Subjective Start: 09/12/19 08:01 Freq: Status: Active Protocol: Document 11/08/19 16:26 SAK (Rec: 11/08/19 16:38 [facility] [id number]) OP-PT Subjective Patient Comments Patient Comments Reports she feels much better when she does her HEP and aquatic therapy, pain increases if she doesn't. Pleased with progress.Wants to continue to decrease her pain PT-OP-F Manual Assessment Start: 09/12/19 08:01 Freq: Status: Active Protocol: Document 09/12/19 08:13 SAK (Rec: 09/12/19 09:43 [facility] [id number]) Manual Assessments Soft Tissue Assessment Soft Tissue Mobility Assessment increased tightness bilateral lumbar paraspinals. Poor muscle tone bilateral gluteals Joint Mobility Assessment Joint Mobility Assessment NA due to prior lumbar fusion PT-OP-G Mobility & Gait Start: 09/12/19 08:01 Freq: Status: Active Protocol: Document 09/12/19 08:13 SAK (Rec: 09/12/19 09:43 [facility] [id number]) OP Mobility Evaluation Functional Movements Squats modfied due to decreased hip ROM right (uses wedge with yoga) OP Gait Assessment Gait Gait Assistance Required: Independent Assistive Devices Assistive Device None PT-OP-H Neuro Start: 09/12/19 08:01 Freq: Status: Active Protocol: Document 09/12/19 08:13 SAK (Rec: 09/12/19 16:22 [facility] [id number]) Sensation Evaluation Gross Sensation Gross Sensation Left LE Impaired PT-OP-J Posture/Palpation/Skin Start: 09/12/19 08:01 Freq: Status: Active Protocol: Document 09/12/19 08:13 SAK (Rec: 09/12/19 16:22 [facility] [id number]) Posture Evaluation Position Standing L-Spine Posture Flattened Shoulder Posture (L) Rounded,(R) Rounded Pelvis Posture Neutral Hip Posture (L) Externally Rotated,(R) Externally Rotated Palpation Assessment Location One Palpation Location lumbar spine Palpation Findings Soft Tissue Tightness, Tenderness Skin Assessment Other Assessments Skin Assessment Comments intact. Old lumbar spine surgical scar well-healed with mobiity WNL PT-OP-K Range of Motion Start: 09/12/19 08:01 Freq: Status: Active Protocol: Document 09/12/19 08:13 SAK (Rec: 09/12/19 16:22 [facility] [id number]) Lumbar Spine Range of Motion Lumbar Spine Active Testing Position Standing ROM Limitations Soft Tissue Tightness,Bony Restriction,Pain Comments Mod decrease in ROM all motions with c/o pain. Minimal motion occuring at lumbar spine. Hip Goniometric Range of Motion Hip Measured in Degrees mk Hip ROM WFL Yes Hip ROM Limitations Comments mild tightness mk hamstrings, moderate tightness bilateral quads and iliopsoas Ankle and Foot Goniometric Range of Motion Ankle and Foot Measured in Degrees mk Ankle/Foot ROM WFL Yes PT-OP-L Special Tests Start: 09/12/19 08:01 Freq: Status: Active Protocol: Document 09/12/19 08:13 [facility] (Rec: 09/12/19 16:22 [facility] [id number]) Special Tests Lumbar Spine Special Tests Straight Leg Raise Test Results negative Artemio Test Results positive mk Standing Flexion Test Results positive increase in symptoms Compression Test Results positive increase in symptoms PT-OP-M Strength Start: 09/12/19 08:01 Freq: Status: Active Protocol: Document 09/12/19 08:13 [facility] (Rec: 09/12/19 16:22 [facility] [id number]) Trunk Strength Trunk Manual Muscle Testing Flexion 4 Good Extension 4- Good- Core Stabilization decreased activation of transverse abdominis. Hip Strength Hip Manual Muscle Testing mk Flexion (L2) 4 Good Extension (S1) 4- Good- Abduction 4+ Good+ Adduction 4+ Good+ External Rotation 4- Good- Internal Rotation 4 Good Knee Strength Knee Manual Muscle Testing mk Flexion (S2) 5 Normal Extension (L3) 5 Normal Ankle/Foot Strength Ankle and Foot Manual Muscle Testing Right Dorsiflexion (L4) 4 Good Plantarflexion (S1) 5 Normal Left Dorsiflexion (L4) 5 Normal Plantarflexion (S1) 5 Normal PT-OP-T Assessment and Plan Start: 09/12/19 08:01 Freq: Status: Active Protocol: Document 11/08/19 16:26 [facility] (Rec: 11/08/19 16:38 [facility] [id number]) Physical Therapy Assessment Rehab Potential Rehabilitation Potential Good Evaluation Complexity Number of Personal Factors/Comorbidities 1-2 Number of Body Systems Impaired 3 Clinical Presentation at Evaluation Evolving Impairments Impairments Activity Tolerance,Pain, Strength Other Concerns Barriers to Rehabilitation prior lumbar fusion, right KENY Goals Three Impairment activity intolerance: Oswestry Disability Index score 42% Short Term Goal (STG) Improve activty tolerance as evidenced by decrease in Oswestry Disability Index score to no greater than 30% 11/08/19: good progress STG Duration 10/25/19 Halfway Goal (LTG) Decrease Oswestry score to no greater than 15% LTG Duration 12/11/19 Two Impairment weakness and decreased ability to activate core musculature for spinal stab Short Term Goal (STG) Instruct in aquatic exercise program for purposes of strengthening and spinal stabilization 11/08/19: good progress STG Duration 10/25/19 Astronomy Instructor Goal (LTG) Patient to be independent with aquatic exercise program and demonstrate improvement in strength and spinal stabilization ability to at least 4+/5 LTG Duration 12/11/19 One Impairment pain 5/10 Short Term Goal (STG) Decrease pain to no greater than 3/10 in low back with all usual activities 11/08/19: good progress as long as does exercises at home and in pool. STG Duration 10/25/19 Astronomy Instructor Goal (LTG) Decrease pain to no greater than 1-2/10 with all usual activities LTG Duration 12/11/19 Assessment Summary Assessment Continues to progress well with aquatic exercise program. Has good potential for further improvement. Physical Therapy Plan Frequency and Duration Frequency of Treatment 2x/Week Duration of Treatment 12 wks Plan of Care Start Date 09/12/19 Plan of Care End Date 12/11/19 Therapeutic Interventions Therapeutic Interventions Aquatic Therapy,Home Exercise Program,Patient/Caregiver Education,Self-Care/Home Management Next Visit Focus/Plan Next Note Type Treatment Note Next Visit Plan Continue progression of aquatic therapy exercise program with emphasis on core strengthening and stabilization.
--- NOTE | 2019-11-17 15:50 | PT.OTN ---
Current Diagnoses Radiculopathy, lumbar region (11/17/19) Weakness (11/17/19) Physical Therapy Treatment Note PT-OP-A Visit Information Start: 09/12/19 08:01 Freq: Status: Active Protocol: Document 11/17/19 11:00 LJ (Rec: 11/17/19 15:50 LJ [id number]) Out-Patient Physical Therapy Visit Information Visit Information Visit Type Aquatic Treatment Note Visit Start Time 11:00 Visit Stop Time 11:45 Total Visit Minutes 45 Visit Number 12 Number of BAKER PIE Visits 1 PT-OP-B Current Condition Start: 09/12/19 08:01 Freq: Status: Active Protocol: Document 09/12/19 08:13 SAK (Rec: 09/12/19 09:11 SAK [id number]) Current Condition History of Current Condition Onset Date 2 years Current Complaints LBP with radicular symptoms History of Current Condition Patient presents to PT with c/ o function-limiting LBP with radicular symptoms including pain and LE weakness as well as numbness 2nd and 3rd toes all the time Prior fusion lumbar 2 years ago. Also 2 fusions cervical spine in 1989. Currently doing land-based PT with Joe Flores for hip pain right greater than left. Does HEP as well as yoga at 2 local studios and at home. Some radiating pain into legs and buttocks. Has obtained new bed recently for improved support. . Legs both give way at times, no falls but has caught herself. Uses CPAP for sleep. Questionable history of osteopenia. History of arthritis and right KENY. Prior Treatments and Tests Right KENY, possible ostopenia. MRI recently showed. Wears custom orthotics made 20 years ago. Future Testing and Treatments Planned none planned. Will be following up with doctor regarding MRI. Treatment Goals Patient/Caregiver Goals Minimize pain and be able to resume more active lifestyle Prior Functional Status Baseline Function- ADL's Independent Baseline Function- Mobility Independent Baseline Function- Gait independnet Baseline Function- Work/School retired Baseline Function- Recreation/Hobbies walking, yoga Current Functional Impairments (Reported) Functional Limitations- ADL's painful Functional Limitations- Mobility/Gait painful Functional Limitations- Work/School retired Functional Limitations- Recreation/ painful, tries to modify due Hobbies to KENY and lumbar fusion PT-OP-C Subjective Start: 09/12/19 08:01 Freq: Status: Active Protocol: Document 11/17/19 11:00 LJ (Rec: 11/17/19 15:50 LJ [id number]) OP-PT Subjective Patient Comments Patient Comments Pt says she was unable to do exercises for three days and it caused her pain. This am she went for a 2.5 mile walk and swam for 1/2 mile prior to therapy. PT-OP-F Manual Assessment Start: 09/12/19 08:01 Freq: Status: Active Protocol: Document 09/12/19 08:13 SAK (Rec: 09/12/19 09:43 SAK [id number]) Manual Assessments Soft Tissue Assessment Soft Tissue Mobility Assessment increased tightness bilateral lumbar paraspinals. Poor muscle tone bilateral gluteals Joint Mobility Assessment Joint Mobility Assessment NA due to prior lumbar fusion PT-OP-G Mobility & Gait Start: 09/12/19 08:01 Freq: Status: Active Protocol: Document 09/12/19 08:13 SAK (Rec: 09/12/19 09:43 SAK [id number]) OP Mobility Evaluation Functional Movements Squats modfied due to decreased hip ROM right (uses wedge with yoga) OP Gait Assessment Gait Gait Assistance Required: Independent Assistive Devices Assistive Device None PT-OP-H Neuro Start: 09/12/19 08:01 Freq: Status: Active Protocol: Document 09/12/19 08:13 SAK (Rec: 09/12/19 16:22 SAK [id number]) Sensation Evaluation Gross Sensation Gross Sensation Left LE Impaired PT-OP-J Posture/Palpation/Skin Start: 09/12/19 08:01 Freq: Status: Active Protocol: Document 09/12/19 08:13 SAK (Rec: 09/12/19 16:22 SAK [id number]) Posture Evaluation Position Standing L-Spine Posture Flattened Shoulder Posture (L) Rounded,(R) Rounded Pelvis Posture Neutral Hip Posture (L) Externally Rotated,(R) Externally Rotated Palpation Assessment Location One Palpation Location lumbar spine Palpation Findings Soft Tissue Tightness, Tenderness Skin Assessment Other Assessments Skin Assessment Comments intact. Old lumbar spine surgical scar well-healed with mobiity WNL PT-OP-K Range of Motion Start: 09/12/19 08:01 Freq: Status: Active Protocol: Document 09/12/19 08:13 SAK (Rec: 09/12/19 16:22 SAK [id number]) Lumbar Spine Range of Motion Lumbar Spine Active Testing Position Standing ROM Limitations Soft Tissue Tightness,Bony Restriction,Pain Comments Mod decrease in ROM all motions with c/o pain. Minimal motion occuring at lumbar spine. Hip Goniometric Range of Motion Hip mk Hip ROM WFL Yes Hip ROM Limitations Comments mild tightness mk hamstrings, moderate tightness bilateral quads and iliopsoas Ankle and Foot Goniometric Range of Motion Ankle and Foot mk Ankle/Foot ROM WFL Yes PT-OP-L Special Tests Start: 09/12/19 08:01 Freq: Status: Active Protocol: Document 09/12/19 08:13 [facility] (Rec: 09/12/19 16:22 [facility] [id number]) Special Tests Lumbar Spine Special Tests Straight Leg Raise Test Results negative Artemio Test Results positive mk Standing Flexion Test Results positive increase in symptoms Compression Test Results positive increase in symptoms PT-OP-M Strength Start: 09/12/19 08:01 Freq: Status: Active Protocol: Document 09/12/19 08:13 [facility] (Rec: 09/12/19 16:22 [facility] [id number]) Trunk Strength Trunk Manual Muscle Testing Flexion 4 Good Extension 4- Good- Core Stabilization decreased activation of transverse abdominis. Hip Strength Hip Manual Muscle Testing mk Flexion (L2) 4 Good Extension (S1) 4- Good- Abduction 4+ Good+ Adduction 4+ Good+ External Rotation 4- Good- Internal Rotation 4 Good Knee Strength Knee Manual Muscle Testing mk Flexion (S2) 5 Normal Extension (L3) 5 Normal Ankle/Foot Strength Ankle and Foot Manual Muscle Testing Right Dorsiflexion (L4) 4 Good Plantarflexion (S1) 5 Normal Left Dorsiflexion (L4) 5 Normal Plantarflexion (S1) 5 Normal PT-OP-Q Treatments Start: 09/12/19 08:01 Freq: Status: Active Protocol: Document 09/12/19 08:13 [facility] (Rec: 09/12/19 16:22 [facility] [id number]) Self-Care/Home Management Treatment Education Patient Education Body Mechanics,Home Exercise Program,Pain Management, Posture Other Education benefits of aquatic therapy PT-OP-S Aquatic Treatment Start: 09/12/19 08:01 Freq: Status: Active Protocol: Document 11/17/19 11:00 LJ (Rec: 11/17/19 15:50 LJ [id number]) Aquatics Treatment Pool Entry/Exit Assistance Independent Comments already in pool Water Walking Forwards Water Level Chest Level Level of Assistance Standby Assistance Comments walking after STM for foot cramp Lower Extremity Exercises hip figure 8 Body Position Standing Water Level Chest Level Reps/Duration 10 B Comments no hh on wall Spinal Exercises kneeling on wonderboard Water Level Neck Level Reps/Duration 6 min wonder board Body Position Standing Water Level Chest Level Reps/Duration 10 min Comments reverse squats Deep water DLS Body Position Standing Water Level [place] Equipment med barbells Balance walking with BBs under feet Details black BBs Body Position Standing Water Level Chest Level Reps/Duration 3 min [place] Activities Other Activities medium BBs under knees- kneeling, crunches, hip pendulums pendulums-side to center planks static and with rotation Duration 20 Manual Techniques Aquatic Massage right peronealsfor cramping PT-OP-T Assessment and Plan Start: 09/12/19 08:01 Freq: Status: Active Protocol: Document 11/17/19 11:00 LJ (Rec: 11/17/19 15:50 LJ [id number]) Physical Therapy Assessment Rehab Potential Rehabilitation Potential Good Evaluation Complexity Number of Personal Factors/Comorbidities 1-2 Number of Body Systems Impaired 3 Clinical Presentation at Evaluation Evolving Impairments Impairments Activity Tolerance,Pain, Strength Other Concerns Barriers to Rehabilitation prior lumbar fusion, right KENY Goals Three Impairment activity intolerance: Oswestry Disability Index score 42% Short Term Goal (STG) Improve activty tolerance as evidenced by decrease in Oswestry Disability Index score to no greater than 30% 11/08/19: good progress STG Duration 10/25/19 Care Home Goal (LTG) Decrease Oswestry score to no greater than 15% LTG Duration 12/11/19 Two Impairment weakness and decreased ability to activate core musculature for spinal stab Short Term Goal (STG) Instruct in aquatic exercise program for purposes of strengthening and spinal stabilization 11/08/19: good progress STG Duration 10/25/19 [facility] Assistant Director Goal (LTG) Patient to be independent with aquatic exercise program and demonstrate improvement in strength and spinal stabilization ability to at least 4+/5 LTG Duration 12/11/19 One Impairment pain 5/10 Short Term Goal (STG) Decrease pain to no greater than 3/10 in low back with all usual activities 11/08/19: good progress as long as does exercises at home and in pool. STG Duration 10/25/19 [facility] Assistant Director Goal (LTG) Decrease pain to no greater than 1-2/10 with all usual activities LTG Duration 12/11/19 Assessment Summary Assessment Pt is progressing with dynamic and static stabilization demonstrating increased core strength and control. She experienced RLE peroneals cramping in deep water and required STM for several minutes to relieve symptoms. Standing balance on wonderboard improved. Physical Therapy Plan Frequency and Duration Frequency of Treatment 2x/Week Duration of Treatment 12 wks Plan of Care Start Date 09/12/19 Plan of Care End Date 12/11/19 Therapeutic Interventions Therapeutic Interventions Aquatic Therapy,Home Exercise Program,Patient/Caregiver Education,Self-Care/Home Management Next Visit Focus/Plan Next Note Type Treatment Note Next Visit Plan Continue progression of aquatic therapy exercise program with emphasis on core strengthening and stabilization.
--- NOTE | 2019-11-20 15:09 | PT.OTN ---
Current Diagnoses Radiculopathy, lumbar region (11/17/19) Weakness (11/17/19) Physical Therapy Treatment Note PT-OP-A Visit Information Start: 09/12/19 08:01 Freq: Status: Active Protocol: Document 11/20/19 12:30 LJ (Rec: 11/20/19 15:09 LJ [id number]) Out-Patient Physical Therapy Visit Information Visit Information Visit Type Aquatic Treatment Note Visit Start Time 12:30 Visit Stop Time 13:15 Total Visit Minutes 45 Visit Number 13 Number of CIRCULAR SHEAR OPERATOR Visits 2 PT-OP-B Current Condition Start: 09/12/19 08:01 Freq: Status: Active Protocol: Document 09/12/19 08:13 SAK (Rec: 09/12/19 09:11 SAK [id number]) Current Condition History of Current Condition Onset Date 2 years Current Complaints LBP with radicular symptoms History of Current Condition Patient presents to PT with c/ o function-limiting LBP with radicular symptoms including pain and LE weakness as well as numbness 2nd and 3rd toes all the time Prior fusion lumbar 2 years ago. Also 2 fusions cervical spine in 1989. Currently doing land-based PT with Joe Flores for hip pain right greater than left. Does HEP as well as yoga at 2 local studios and at home. Some radiating pain into legs and buttocks. Has obtained new bed recently for improved support. . Legs both give way at times, no falls but has caught herself. Uses CPAP for sleep. Questionable history of osteopenia. History of arthritis and right KENY. Prior Treatments and Tests Right KENY, possible ostopenia. MRI recently showed. Wears custom orthotics made 20 years ago. Future Testing and Treatments Planned none planned. Will be following up with doctor regarding MRI. Treatment Goals Patient/Caregiver Goals Minimize pain and be able to resume more active lifestyle Prior Functional Status Baseline Function- ADL's Independent Baseline Function- Mobility Independent Baseline Function- Gait independnet Baseline Function- Work/School retired Baseline Function- Recreation/Hobbies walking, yoga Current Functional Impairments (Reported) Functional Limitations- ADL's painful Functional Limitations- Mobility/Gait painful Functional Limitations- Work/School retired Functional Limitations- Recreation/ painful, tries to modify due Hobbies to KENY and lumbar fusion PT-OP-C Subjective Start: 09/12/19 08:01 Freq: Status: Active Protocol: Document 11/20/19 12:30 LJ (Rec: 11/20/19 15:09 LJ [id number]) OP-PT Subjective Patient Comments Patient Comments Pt reports feeling stronger and the radicular pain is gone . She is able to do more activities without pain. States she has tightness in the lumbar region. PT-OP-F Manual Assessment Start: 09/12/19 08:01 Freq: Status: Active Protocol: Document 09/12/19 08:13 SAK (Rec: 09/12/19 09:43 SAK [id number]) Manual Assessments Soft Tissue Assessment Soft Tissue Mobility Assessment increased tightness bilateral lumbar paraspinals. Poor muscle tone bilateral gluteals Joint Mobility Assessment Joint Mobility Assessment NA due to prior lumbar fusion PT-OP-G Mobility & Gait Start: 09/12/19 08:01 Freq: Status: Active Protocol: Document 09/12/19 08:13 SAK (Rec: 09/12/19 09:43 SAK [id number]) OP Mobility Evaluation Functional Movements Squats modfied due to decreased hip ROM right (uses wedge with yoga) OP Gait Assessment Gait Gait Assistance Required: Independent Assistive Devices Assistive Device None PT-OP-H Neuro Start: 09/12/19 08:01 Freq: Status: Active Protocol: Document 09/12/19 08:13 SAK (Rec: 09/12/19 16:22 SAK [id number]) Sensation Evaluation Gross Sensation Gross Sensation Left LE Impaired PT-OP-J Posture/Palpation/Skin Start: 09/12/19 08:01 Freq: Status: Active Protocol: Document 09/12/19 08:13 SAK (Rec: 09/12/19 16:22 SAK [id number]) Posture Evaluation Position Standing L-Spine Posture Flattened Shoulder Posture (L) Rounded,(R) Rounded Pelvis Posture Neutral Hip Posture (L) Externally Rotated,(R) Externally Rotated Palpation Assessment Location One Palpation Location lumbar spine Palpation Findings Soft Tissue Tightness, Tenderness Skin Assessment Other Assessments Skin Assessment Comments intact. Old lumbar spine surgical scar well-healed with mobiity WNL PT-OP-K Range of Motion Start: 09/12/19 08:01 Freq: Status: Active Protocol: Document 09/12/19 08:13 SAK (Rec: 09/12/19 16:22 SAK [id number]) Lumbar Spine Range of Motion Lumbar Spine Active Testing Position Standing ROM Limitations Soft Tissue Tightness,Bony Restriction,Pain Comments Mod decrease in ROM all motions with c/o pain. Minimal motion occuring at lumbar spine. Hip Goniometric Range of Motion Hip mk Hip ROM WFL Yes Hip ROM Limitations Comments mild tightness mk hamstrings, moderate tightness bilateral quads and iliopsoas Ankle and Foot Goniometric Range of Motion Ankle and Foot mk Ankle/Foot ROM WFL Yes PT-OP-L Special Tests Start: 09/12/19 08:01 Freq: Status: Active Protocol: Document 09/12/19 08:13 [facility] (Rec: 09/12/19 16:22 [facility] [id number]) Special Tests Lumbar Spine Special Tests Straight Leg Raise Test Results negative Artemio Test Results positive mk Standing Flexion Test Results positive increase in symptoms Compression Test Results positive increase in symptoms PT-OP-M Strength Start: 09/12/19 08:01 Freq: Status: Active Protocol: Document 09/12/19 08:13 [facility] (Rec: 09/12/19 16:22 [facility] [id number]) Trunk Strength Trunk Manual Muscle Testing Flexion 4 Good Extension 4- Good- Core Stabilization decreased activation of transverse abdominis. Hip Strength Hip Manual Muscle Testing mk Flexion (L2) 4 Good Extension (S1) 4- Good- Abduction 4+ Good+ Adduction 4+ Good+ External Rotation 4- Good- Internal Rotation 4 Good Knee Strength Knee Manual Muscle Testing mk Flexion (S2) 5 Normal Extension (L3) 5 Normal Ankle/Foot Strength Ankle and Foot Manual Muscle Testing Right Dorsiflexion (L4) 4 Good Plantarflexion (S1) 5 Normal Left Dorsiflexion (L4) 5 Normal Plantarflexion (S1) 5 Normal PT-OP-Q Treatments Start: 09/12/19 08:01 Freq: Status: Active Protocol: Document 09/12/19 08:13 SAK (Rec: 09/12/19 16:22 [facility] [id number]) Self-Care/Home Management Treatment Education Patient Education Body Mechanics,Home Exercise Program,Pain Management, Posture Other Education benefits of aquatic therapy PT-OP-S Aquatic Treatment Start: 09/12/19 08:01 Freq: Status: Active Protocol: Document 11/20/19 12:30 LJ (Rec: 11/20/19 15:09 LJ [email or web address]) Aquatics Treatment Pool Entry/Exit Assistance Independent Comments already in pool Water Walking start/stop wotj dorectional changes Water Level Waist Level Lower Extremity Stretches spiderman with body swing Details on wall Reps/Duration 2 min hip flexors Details at wall Body Position Standing Water Level Waist Level Reps/Duration 2x45 sec bilat Comments noodle DKTC, SKTC Body Position Standing Water Level Chest Level Reps/Duration 2x30 Comments at wall hamstring, ITB Body Position Standing Water Level Chest Level Equipment lg Noodle Reps/Duration 2x 30 Spinal Exercises kneeling on wonderboard Water Level Neck Level Reps/Duration 4 min wonder board Body Position Standing Water Level Chest Level Reps/Duration 14 min Comments reverse squats [place] Activities [place] Activities Bicycle,Cross Country,Hip Abduction/Adduction Other Activities pendulum, 1/2 pendulum, plank , forward reverse roll, rotary ski PT-OP-T Assessment and Plan Start: 09/12/19 08:01 Freq: Status: Active Protocol: Document 11/20/19 12:30 DIANNE (Rec: 11/20/19 15:09 DIANNE [email or web address]) Physical Therapy Assessment Rehab Potential Rehabilitation Potential Good Evaluation Complexity Number of Personal Factors/Comorbidities 1-2 Number of Body Systems Impaired 3 Clinical Presentation at Evaluation Evolving Impairments Impairments Activity Tolerance,Pain, Strength Other Concerns Barriers to Rehabilitation prior lumbar fusion, right KENY Goals Three Impairment activity intolerance: Oswestry Disability Index score 42% Short Term Goal (STG) Improve activty tolerance as evidenced by decrease in Oswestry Disability Index score to no greater than 30% 11/08/19: good progress STG Duration 10/25/19 Rivet Spinner Goal (LTG) Decrease Oswestry score to no greater than 15% LTG Duration 12/11/19 Two Impairment weakness and decreased ability to activate core musculature for spinal stab Short Term Goal (STG) Instruct in aquatic exercise program for purposes of strengthening and spinal stabilization 11/08/19: good progress STG Duration 10/25/19 Senior Care Goal (LTG) Patient to be independent with aquatic exercise program and demonstrate improvement in strength and spinal stabilization ability to at least 4+/5 LTG Duration 12/11/19 One Impairment pain 5/10 Short Term Goal (STG) Decrease pain to no greater than 3/10 in low back with all usual activities 11/08/19: good progress as long as does exercises at home and in pool. STG Duration 10/25/19 Rivet Spinner Goal (LTG) Decrease pain to no greater than 1-2/10 with all usual activities LTG Duration 12/11/19 Assessment Summary Assessment Pt had more difficulty with wonderboard balance this session. Educated pt on stretching LEs, hips, and low back. Pt continues to progress with stabilizing exercises and did very well with stop start and directional changes without LOB. Physical Therapy Plan Frequency and Duration Frequency of Treatment 2x/Week Duration of Treatment 12 wks Therapeutic Interventions Therapeutic Interventions Aquatic Therapy,Home Exercise Program,Patient/Caregiver Education,Self-Care/Home Management Next Visit Focus/Plan Next Note Type Treatment Note Next Visit Plan Continue progression of aquatic therapy exercise program with emphasis on core strengthening and stabilization.
--- NOTE | 2019-11-27 14:01 | PT.OTN ---
Current Diagnoses Radiculopathy, lumbar region (11/27/19) Weakness (11/27/19) Physical Therapy Treatment Note PT-OP-A Visit Information Start: 09/12/19 08:01 Freq: Status: Active Protocol: Document 11/27/19 13:52 SAK (Rec: 11/27/19 14:01 SAK [id number]) Out-Patient Physical Therapy Visit Information Visit Information Visit Type Aquatic Treatment Note Visit Start Time 11:45 Visit Stop Time 12:30 Total Visit Minutes 45 Visit Number 14 Number of HYDRAULIC BARKER OPERATOR Visits 0 PT-OP-B Current Condition Start: 09/12/19 08:01 Freq: Status: Active Protocol: Document 09/12/19 08:13 SAK (Rec: 09/12/19 09:11 SAK [id number]) Current Condition History of Current Condition Onset Date 2 years Current Complaints LBP with radicular symptoms History of Current Condition Patient presents to PT with c/ o function-limiting LBP with radicular symptoms including pain and LE weakness as well as numbness 2nd and 3rd toes all the time Prior fusion lumbar 2 years ago. Also 2 fusions cervical spine in 1989. Currently doing land-based PT with Joe Flores for hip pain right greater than left. Does HEP as well as yoga at 2 local studios and at home. Some radiating pain into legs and buttocks. Has obtained new bed recently for improved support. . Legs both give way at times, no falls but has caught herself. Uses CPAP for sleep. Questionable history of osteopenia. History of arthritis and right KENY. Prior Treatments and Tests Right KENY, possible ostopenia. MRI recently showed. Wears custom orthotics made 20 years ago. Future Testing and Treatments Planned none planned. Will be following up with doctor regarding MRI. Treatment Goals Patient/Caregiver Goals Minimize pain and be able to resume more active lifestyle Prior Functional Status Baseline Function- ADL's Independent Baseline Function- Mobility Independent Baseline Function- Gait independnet Baseline Function- Work/School retired Baseline Function- Recreation/Hobbies walking, yoga Current Functional Impairments (Reported) Functional Limitations- ADL's painful Functional Limitations- Mobility/Gait painful Functional Limitations- Work/School retired Functional Limitations- Recreation/ painful, tries to modify due Hobbies to KENY and lumbar fusion PT-OP-C Subjective Start: 09/12/19 08:01 Freq: Status: Active Protocol: Document 11/27/19 13:52 SAK (Rec: 11/27/19 14:01 [facility] [id number]) OP-PT Subjective Patient Comments Patient Comments Reports am pain, better after she gets up and moving, and especially with exercise. Agrees she is likely ready for look at discharge from PT soon but is concerned she won' t keep it up. PT-OP-F Manual Assessment Start: 09/12/19 08:01 Freq: Status: Active Protocol: Document 09/12/19 08:13 [facility] (Rec: 09/12/19 09:43 [facility] [id number]) Manual Assessments Soft Tissue Assessment Soft Tissue Mobility Assessment increased tightness bilateral lumbar paraspinals. Poor muscle tone bilateral gluteals Joint Mobility Assessment Joint Mobility Assessment NA due to prior lumbar fusion PT-OP-G Mobility & Gait Start: 09/12/19 08:01 Freq: Status: Active Protocol: Document 09/12/19 08:13 SAK (Rec: 09/12/19 09:43 [facility] [id number]) OP Mobility Evaluation Functional Movements Squats modfied due to decreased hip ROM right (uses wedge with yoga) OP Gait Assessment Gait Gait Assistance Required: Independent Assistive Devices Assistive Device None PT-OP-H Neuro Start: 09/12/19 08:01 Freq: Status: Active Protocol: Document 09/12/19 08:13 [facility] (Rec: 09/12/19 16:22 [facility] [id number]) Sensation Evaluation Gross Sensation Gross Sensation Left LE Impaired PT-OP-J Posture/Palpation/Skin Start: 09/12/19 08:01 Freq: Status: Active Protocol: Document 09/12/19 08:13 [facility] (Rec: 09/12/19 16:22 [facility] [id number]) Posture Evaluation Position Standing L-Spine Posture Flattened Shoulder Posture (L) Rounded,(R) Rounded Pelvis Posture Neutral Hip Posture (L) Externally Rotated,(R) Externally Rotated Palpation Assessment Location One Palpation Location lumbar spine Palpation Findings Soft Tissue Tightness, Tenderness Skin Assessment Other Assessments Skin Assessment Comments intact. Old lumbar spine surgical scar well-healed with mobiity WNL PT-OP-K Range of Motion Start: 09/12/19 08:01 Freq: Status: Active Protocol: Document 09/12/19 08:13 [facility] (Rec: 09/12/19 16:22 [facility] [id number]) Lumbar Spine Range of Motion Lumbar Spine Active Testing Position Standing ROM Limitations Soft Tissue Tightness,Bony Restriction,Pain Comments Mod decrease in ROM all motions with c/o pain. Minimal motion occuring at lumbar spine. Hip Goniometric Range of Motion Hip mk Hip ROM WFL Yes Hip ROM Limitations Comments mild tightness mk hamstrings, moderate tightness bilateral quads and iliopsoas Ankle and Foot Goniometric Range of Motion Ankle and Foot mk Ankle/Foot ROM WFL Yes PT-OP-L Special Tests Start: 09/12/19 08:01 Freq: Status: Active Protocol: Document 09/12/19 08:13 [facility] (Rec: 09/12/19 16:22 [facility] [id number]) Special Tests Lumbar Spine Special Tests Straight Leg Raise Test Results negative Artemio Test Results positive mk Standing Flexion Test Results positive increase in symptoms Compression Test Results positive increase in symptoms PT-OP-M Strength Start: 09/12/19 08:01 Freq: Status: Active Protocol: Document 09/12/19 08:13 [facility] (Rec: 09/12/19 16:22 [facility] [id number]) Trunk Strength Trunk Manual Muscle Testing Flexion 4 Good Extension 4- Good- Core Stabilization decreased activation of transverse abdominis. Hip Strength Hip Manual Muscle Testing mk Flexion (L2) 4 Good Extension (S1) 4- Good- Abduction 4+ Good+ Adduction 4+ Good+ External Rotation 4- Good- Internal Rotation 4 Good Knee Strength Knee Manual Muscle Testing mk Flexion (S2) 5 Normal Extension (L3) 5 Normal Ankle/Foot Strength Ankle and Foot Manual Muscle Testing Right Dorsiflexion (L4) 4 Good Plantarflexion (S1) 5 Normal Left Dorsiflexion (L4) 5 Normal Plantarflexion (S1) 5 Normal PT-OP-Q Treatments Start: 09/12/19 08:01 Freq: Status: Active Protocol: Document 09/12/19 08:13 [facility] (Rec: 09/12/19 16:22 [facility] [id number]) Self-Care/Home Management Treatment Education Patient Education Body Mechanics,Home Exercise Program,Pain Management, Posture Other Education benefits of aquatic therapy PT-OP-S Aquatic Treatment Start: 09/12/19 08:01 Freq: Status: Active Protocol: Document 11/27/19 13:52 [facility] (Rec: 11/27/19 14:01 [facility] [id number]) Aquatics Treatment Pool Entry/Exit Assistance Independent Comments already in pool Lower Extremity Exercises hip figure 8 Body Position Standing Water Level Chest Level Reps/Duration 10 B Comments no hh on wall Lower Extremity Stretches spiderman with body swing Details on wall Reps/Duration 2 min hip flexors Details at wall Body Position Standing Water Level Waist Level Reps/Duration 2x45 sec bilat Comments noodle DKTC, SKTC Body Position Standing Water Level Chest Level Reps/Duration 2x30 Comments at wall hamstring, ITB Body Position Standing Water Level Chest Level Equipment lg Noodle Reps/Duration 2x 30 Spinal Exercises pull downs Details forward Equipment long barbell Reps/Duration 15x long barbell stand Details with reverse squats, fwd/ bckward propel Comments emphasis on core stabilization kneeling on wonderboard Water Level Neck Level [place] Activities [place] Activities Bicycle,Cross Country,Running, Hip Abduction/Adduction,Sit Kicks Other Activities 8 sets 30:30 intervals tetered Equipment flotation belt PT-OP-T Assessment and Plan Start: 09/12/19 08:01 Freq: Status: Active Protocol: Document 11/27/19 13:52 [facility] (Rec: 11/27/19 14:01 [facility] [id number]) Physical Therapy Assessment Other Concerns Barriers to Rehabilitation prior lumbar fusion, right KENY Goals Three Impairment activity intolerance: Oswestry Disability Index score 42% Short Term Goal (STG) Improve activty tolerance as evidenced by decrease in Oswestry Disability Index score to no greater than 30% 11/08/19: good progress STG Duration 10/25/19 Retirement Goal (LTG) Decrease Oswestry score to no greater than 15% LTG Duration 12/11/19 Two Impairment weakness and decreased ability to activate core musculature for spinal stab Short Term Goal (STG) Instruct in aquatic exercise program for purposes of strengthening and spinal stabilization 11/08/19: good progress STG Duration 10/25/19 Heavy Truck Mechanic Goal (LTG) Patient to be independent with aquatic exercise program and demonstrate improvement in strength and spinal stabilization ability to at least 4+/5 LTG Duration 12/11/19 One Impairment pain 5/10 Short Term Goal (STG) Decrease pain to no greater than 3/10 in low back with all usual activities 11/08/19: good progress as long as does exercises at home and in pool. STG Duration 10/25/19 Heavy Truck Mechanic Goal (LTG) Decrease pain to no greater than 1-2/10 with all usual activities LTG Duration 12/11/19 Physical Therapy Plan Frequency and Duration Frequency of Treatment 2x/Week Duration of Treatment 12 wks Plan of Care Start Date 09/12/19 Plan of Care End Date 12/11/19 Therapeutic Interventions Therapeutic Interventions Aquatic Therapy,Home Exercise Program,Patient/Caregiver Education,Self-Care/Home Management Next Visit Focus/Plan Next Note Type Treatment Note Next Visit Plan Transition toward independent aquatic exercise program with 2 visits.
--- NOTE | 2019-12-04 15:10 | PT.OTN ---
Current Diagnoses Radiculopathy, lumbar region (12/04/19) Weakness (12/04/19) Physical Therapy Treatment Note PT-OP-A Visit Information Start: 09/12/19 08:01 Freq: Status: Active Protocol: Document 12/04/19 13:15 LJ (Rec: 12/04/19 15:10 LJ [id number]) Out-Patient Physical Therapy Visit Information Visit Information Visit Type Aquatic Treatment Note Visit Start Time 13:15 Visit Stop Time 14:00 Total Visit Minutes 45 Visit Number 15 Number of CAREER PLACEMENT SERVICES COUNSELOR Visits 1 PT-OP-B Current Condition Start: 09/12/19 08:01 Freq: Status: Active Protocol: Document 09/12/19 08:13 SAK (Rec: 09/12/19 09:11 SAK [id number]) Current Condition History of Current Condition Onset Date 2 years Current Complaints LBP with radicular symptoms History of Current Condition Patient presents to PT with c/ o function-limiting LBP with radicular symptoms including pain and LE weakness as well as numbness 2nd and 3rd toes all the time Prior fusion lumbar 2 years ago. Also 2 fusions cervical spine in 1989. Currently doing land-based PT with Joe Flores for hip pain right greater than left. Does HEP as well as yoga at 2 local studios and at home. Some radiating pain into legs and buttocks. Has obtained new bed recently for improved support. . Legs both give way at times, no falls but has caught herself. Uses CPAP for sleep. Questionable history of osteopenia. History of arthritis and right KENY. Prior Treatments and Tests Right KENY, possible ostopenia. MRI recently showed. Wears custom orthotics made 20 years ago. Future Testing and Treatments Planned none planned. Will be following up with doctor regarding MRI. Treatment Goals Patient/Caregiver Goals Minimize pain and be able to resume more active lifestyle Prior Functional Status Baseline Function- ADL's Independent Baseline Function- Mobility Independent Baseline Function- Gait independnet Baseline Function- Work/School retired Baseline Function- Recreation/Hobbies walking, yoga Current Functional Impairments (Reported) Functional Limitations- ADL's painful Functional Limitations- Mobility/Gait painful Functional Limitations- Work/School retired Functional Limitations- Recreation/ painful, tries to modify due Hobbies to KENY and lumbar fusion PT-OP-C Subjective Start: 09/12/19 08:01 Freq: Status: Active Protocol: Document 12/04/19 13:15 LJ (Rec: 12/04/19 15:10 LJ [id number]) OP-PT Subjective Patient Comments Patient Comments Pt is eager to go over [facility] for pool visits. She says she is feeling much better and wants to keep it up. PT-OP-F Manual Assessment Start: 09/12/19 08:01 Freq: Status: Active Protocol: Document 09/12/19 08:13 SAK (Rec: 09/12/19 09:43 SAK [id number]) Manual Assessments Soft Tissue Assessment Soft Tissue Mobility Assessment increased tightness bilateral lumbar paraspinals. Poor muscle tone bilateral gluteals Joint Mobility Assessment Joint Mobility Assessment NA due to prior lumbar fusion PT-OP-G Mobility & Gait Start: 09/12/19 08:01 Freq: Status: Active Protocol: Document 09/12/19 08:13 SAK (Rec: 09/12/19 09:43 SAK [id number]) OP Mobility Evaluation Functional Movements Squats modfied due to decreased hip ROM right (uses wedge with yoga) OP Gait Assessment Gait Gait Assistance Required: Independent Assistive Devices Assistive Device None PT-OP-H Neuro Start: 09/12/19 08:01 Freq: Status: Active Protocol: Document 09/12/19 08:13 SAK (Rec: 09/12/19 16:22 SAK [id number]) Sensation Evaluation Gross Sensation Gross Sensation Left LE Impaired PT-OP-J Posture/Palpation/Skin Start: 09/12/19 08:01 Freq: Status: Active Protocol: Document 09/12/19 08:13 SAK (Rec: 09/12/19 16:22 SAK [id number]) Posture Evaluation Position Standing L-Spine Posture Flattened Shoulder Posture (L) Rounded,(R) Rounded Pelvis Posture Neutral Hip Posture (L) Externally Rotated,(R) Externally Rotated Palpation Assessment Location One Palpation Location lumbar spine Palpation Findings Soft Tissue Tightness, Tenderness Skin Assessment Other Assessments Skin Assessment Comments intact. Old lumbar spine surgical scar well-healed with mobiity WNL PT-OP-K Range of Motion Start: 09/12/19 08:01 Freq: Status: Active Protocol: Document 09/12/19 08:13 SAK (Rec: 09/12/19 16:22 SAK [id number]) Lumbar Spine Range of Motion Lumbar Spine Active Testing Position Standing ROM Limitations Soft Tissue Tightness,Bony Restriction,Pain Comments Mod decrease in ROM all motions with c/o pain. Minimal motion occuring at lumbar spine. Hip Goniometric Range of Motion Hip mk Hip ROM WFL Yes Hip ROM Limitations Comments mild tightness mk hamstrings, moderate tightness bilateral quads and iliopsoas Ankle and Foot Goniometric Range of Motion Ankle and Foot mk Ankle/Foot ROM WFL Yes PT-OP-L Special Tests Start: 09/12/19 08:01 Freq: Status: Active Protocol: Document 09/12/19 08:13 SAK (Rec: 09/12/19 16:22 [facility] [id number]) Special Tests Lumbar Spine Special Tests Straight Leg Raise Test Results negative Artemio Test Results positive mk Standing Flexion Test Results positive increase in symptoms Compression Test Results positive increase in symptoms PT-OP-M Strength Start: 09/12/19 08:01 Freq: Status: Active Protocol: Document 09/12/19 08:13 [facility] (Rec: 09/12/19 16:22 [facility] [id number]) Trunk Strength Trunk Manual Muscle Testing Flexion 4 Good Extension 4- Good- Core Stabilization decreased activation of transverse abdominis. Hip Strength Hip Manual Muscle Testing mk Flexion (L2) 4 Good Extension (S1) 4- Good- Abduction 4+ Good+ Adduction 4+ Good+ External Rotation 4- Good- Internal Rotation 4 Good Knee Strength Knee Manual Muscle Testing mk Flexion (S2) 5 Normal Extension (L3) 5 Normal Ankle/Foot Strength Ankle and Foot Manual Muscle Testing Right Dorsiflexion (L4) 4 Good Plantarflexion (S1) 5 Normal Left Dorsiflexion (L4) 5 Normal Plantarflexion (S1) 5 Normal PT-OP-Q Treatments Start: 09/12/19 08:01 Freq: Status: Active Protocol: Document 09/12/19 08:13 SAK (Rec: 09/12/19 16:22 [facility] [id number]) Self-Care/Home Management Treatment Education Patient Education Body Mechanics,Home Exercise Program,Pain Management, Posture Other Education benefits of aquatic therapy PT-OP-S Aquatic Treatment Start: 09/12/19 08:01 Freq: Status: Active Protocol: Document 12/04/19 13:15 DIANNE (Rec: 12/04/19 15:10 LJ [id number]) Aquatics Treatment Pool Entry/Exit Assistance Independent Comments already in pool Water Walking backward with hip circumduction-tandem, slow motion Water Level Waist Level Walking Equipment Ankle Floats Level of Assistance Verbal Cues [place] Water Level Chest Level Walking Equipment Ankle Floats Level of Assistance Verbal Cues [place] December Water Level Chest Level Walking Equipment Ankle Floats Level of Assistance Standby Assistance Comments #5 wts also Sideways Water Level Chest Level Walking Equipment Ankle Floats Level of Assistance Standby Assistance,Verbal Cues Comments arms- ab,add; horizontal ab,ad alternating Forwards Water Level Chest Level Level of Assistance Standby Assistance Comments ankle wts and floats Lower Extremity Exercises hip figure 8 Body Position Standing Water Level Chest Level Reps/Duration 10 B Comments no hh on wall HS curls Body Position Standing Water Level Chest Level Equipment Ankle Weight- 5.0# Reps/Duration 10x2 Comments no hh on wall hip circumduction-CW/CCW Body Position Standing Water Level Chest Level Equipment Ankle Weight- 5.0# Reps/Duration 10x2 bilaterally each direction Comments ankle floats also hip ab/ad Body Position Standing Water Level Chest Level Equipment Ankle Weight- 5.0# Reps/Duration 10x2 Comments ankle floats also hip flex/ext Body Position Standing Water Level Chest Level Equipment Ankle Weight- 5.0# Reps/Duration 10x2 Comments ankle floats also Upper Extremity Exercises Pull downs Body Position Standing Equipment long barbells Reps/Duration 15 Comments emphasizing posture and core stabilization horiz ab,add Body Position Standing Water Level Chest Level Equipment UE paddles Reps/Duration 10x2 Comments emphasizing scap retraction Spinal Exercises kneeling on wonderboard Water Level Neck Level [place] Activities [place] Activities Bicycle,Cross Country,Hip Abduction/Adduction Other Activities supine to standing with belt and ankle floats Equipment flotation belt, ankle floats PT-OP-T Assessment and Plan Start: 09/12/19 08:01 Freq: Status: Active Protocol: Document 12/04/19 13:15 DIANNE (Rec: 12/04/19 15:10 DIANNE [id number]) Physical Therapy Assessment Rehab Potential Rehabilitation Potential Good Evaluation Complexity Number of Personal Factors/Comorbidities 1-2 Number of Body Systems Impaired 3 Clinical Presentation at Evaluation Evolving Other Concerns Barriers to Rehabilitation prior lumbar fusion, right KENY Goals Three Impairment activity intolerance: Oswestry Disability Index score 42% Short Term Goal (STG) Improve activty tolerance as evidenced by decrease in Oswestry Disability Index score to no greater than 30% 11/08/19: good progress STG Duration 10/25/19 Senior Care Goal (LTG) Decrease Oswestry score to no greater than 15% LTG Duration 12/11/19 Two Impairment weakness and decreased ability to activate core musculature for spinal stab Short Term Goal (STG) Instruct in aquatic exercise program for purposes of strengthening and spinal stabilization 11/08/19: good progress STG Duration 10/25/19 Software Quality Assurance Engineer Goal (LTG) Patient to be independent with aquatic exercise program and demonstrate improvement in strength and spinal stabilization ability to at least 4+/5 LTG Duration 12/11/19 One Impairment pain 5/10 Short Term Goal (STG) Decrease pain to no greater than 3/10 in low back with all usual activities 11/08/19: good progress as long as does exercises at home and in pool. STG Duration 10/25/19 Senior Care Goal (LTG) Decrease pain to no greater than 1-2/10 with all usual activities LTG Duration 12/11/19 Assessment Summary Assessment Reviewed prior exercises and introduced ankle wts and floatation for variability and progression to continue to challange and strengthen core and extremeties. Pt given sheets of exercises which she reviewed and stated that she understood them. Physical Therapy Plan Frequency and Duration Frequency of Treatment 2x/Week Duration of Treatment 12 wks Plan of Care Start Date 09/12/19 Plan of Care End Date 12/11/19 Therapeutic Interventions Therapeutic Interventions Aquatic Therapy,Home Exercise Program,Patient/Caregiver Education,Self-Care/Home Management Next Visit Focus/Plan Next Note Type Treatment Note Next Visit Plan Pt is discharged with sheets of aquatic exercises for independent use
--- NOTE | 2019-12-04 15:27 | PT.OTN ---
Current Diagnoses Radiculopathy, lumbar region (12/04/19) Weakness (12/04/19) Physical Therapy Treatment Note PT-OP-A Visit Information Start: 09/12/19 08:01 Freq: Status: Active Protocol: Document 12/04/19 13:15 LJ (Rec: 12/04/19 15:10 LJ [id number]) Out-Patient Physical Therapy Visit Information Visit Information Visit Type Aquatic Treatment Note Visit Start Time 13:15 Visit Stop Time 14:00 Total Visit Minutes 45 Visit Number 15 Number of NUT AND BOLT ASSEMBLER Visits 1 PT-OP-B Current Condition Start: 09/12/19 08:01 Freq: Status: Active Protocol: Document 09/12/19 08:13 SAK (Rec: 09/12/19 09:11 SAK [id number]) Current Condition History of Current Condition Onset Date 2 years Current Complaints LBP with radicular symptoms History of Current Condition Patient presents to PT with c/ o function-limiting LBP with radicular symptoms including pain and LE weakness as well as numbness 2nd and 3rd toes all the time Prior fusion lumbar 2 years ago. Also 2 fusions cervical spine in 1989. Currently doing land-based PT with Joe Flores for hip pain right greater than left. Does HEP as well as yoga at 2 local studios and at home. Some radiating pain into legs and buttocks. Has obtained new bed recently for improved support. . Legs both give way at times, no falls but has caught herself. Uses CPAP for sleep. Questionable history of osteopenia. History of arthritis and right KENY. Prior Treatments and Tests Right KENY, possible ostopenia. MRI recently showed. Wears custom orthotics made 20 years ago. Future Testing and Treatments Planned none planned. Will be following up with doctor regarding MRI. Treatment Goals Patient/Caregiver Goals Minimize pain and be able to resume more active lifestyle Prior Functional Status Baseline Function- ADL's Independent Baseline Function- Mobility Independent Baseline Function- Gait independnet Baseline Function- Work/School retired Baseline Function- Recreation/Hobbies walking, yoga Current Functional Impairments (Reported) Functional Limitations- ADL's painful Functional Limitations- Mobility/Gait painful Functional Limitations- Work/School retired Functional Limitations- Recreation/ painful, tries to modify due Hobbies to KENY and lumbar fusion PT-OP-C Subjective Start: 09/12/19 08:01 Freq: Status: Active Protocol: Document 12/04/19 13:15 LJ (Rec: 12/04/19 15:10 LJ [id number]) OP-PT Subjective Patient Comments Patient Comments Pt is eager to go over [facility] for pool visits. She says she is feeling much better and wants to keep it up. PT-OP-F Manual Assessment Start: 09/12/19 08:01 Freq: Status: Active Protocol: Document 09/12/19 08:13 SAK (Rec: 09/12/19 09:43 SAK [id number]) Manual Assessments Soft Tissue Assessment Soft Tissue Mobility Assessment increased tightness bilateral lumbar paraspinals. Poor muscle tone bilateral gluteals Joint Mobility Assessment Joint Mobility Assessment NA due to prior lumbar fusion PT-OP-G Mobility & Gait Start: 09/12/19 08:01 Freq: Status: Active Protocol: Document 09/12/19 08:13 SAK (Rec: 09/12/19 09:43 SAK [id number]) OP Mobility Evaluation Functional Movements Squats modfied due to decreased hip ROM right (uses wedge with yoga) OP Gait Assessment Gait Gait Assistance Required: Independent Assistive Devices Assistive Device None PT-OP-H Neuro Start: 09/12/19 08:01 Freq: Status: Active Protocol: Document 09/12/19 08:13 SAK (Rec: 09/12/19 16:22 SAK [id number]) Sensation Evaluation Gross Sensation Gross Sensation Left LE Impaired PT-OP-J Posture/Palpation/Skin Start: 09/12/19 08:01 Freq: Status: Active Protocol: Document 09/12/19 08:13 SAK (Rec: 09/12/19 16:22 SAK [id number]) Posture Evaluation Position Standing L-Spine Posture Flattened Shoulder Posture (L) Rounded,(R) Rounded Pelvis Posture Neutral Hip Posture (L) Externally Rotated,(R) Externally Rotated Palpation Assessment Location One Palpation Location lumbar spine Palpation Findings Soft Tissue Tightness, Tenderness Skin Assessment Other Assessments Skin Assessment Comments intact. Old lumbar spine surgical scar well-healed with mobiity WNL PT-OP-K Range of Motion Start: 09/12/19 08:01 Freq: Status: Active Protocol: Document 09/12/19 08:13 SAK (Rec: 09/12/19 16:22 SAK [id number]) Lumbar Spine Range of Motion Lumbar Spine Active Testing Position Standing ROM Limitations Soft Tissue Tightness,Bony Restriction,Pain Comments Mod decrease in ROM all motions with c/o pain. Minimal motion occuring at lumbar spine. Hip Goniometric Range of Motion Hip mk Hip ROM WFL Yes Hip ROM Limitations Comments mild tightness mk hamstrings, moderate tightness bilateral quads and iliopsoas Ankle and Foot Goniometric Range of Motion Ankle and Foot mk Ankle/Foot ROM WFL Yes PT-OP-L Special Tests Start: 09/12/19 08:01 Freq: Status: Active Protocol: Document 09/12/19 08:13 SAK (Rec: 09/12/19 16:22 [facility] [id number]) Special Tests Lumbar Spine Special Tests Straight Leg Raise Test Results negative Artemio Test Results positive mk Standing Flexion Test Results positive increase in symptoms Compression Test Results positive increase in symptoms PT-OP-M Strength Start: 09/12/19 08:01 Freq: Status: Active Protocol: Document 09/12/19 08:13 [facility] (Rec: 09/12/19 16:22 [facility] [id number]) Trunk Strength Trunk Manual Muscle Testing Flexion 4 Good Extension 4- Good- Core Stabilization decreased activation of transverse abdominis. Hip Strength Hip Manual Muscle Testing mk Flexion (L2) 4 Good Extension (S1) 4- Good- Abduction 4+ Good+ Adduction 4+ Good+ External Rotation 4- Good- Internal Rotation 4 Good Knee Strength Knee Manual Muscle Testing mk Flexion (S2) 5 Normal Extension (L3) 5 Normal Ankle/Foot Strength Ankle and Foot Manual Muscle Testing Right Dorsiflexion (L4) 4 Good Plantarflexion (S1) 5 Normal Left Dorsiflexion (L4) 5 Normal Plantarflexion (S1) 5 Normal PT-OP-Q Treatments Start: 09/12/19 08:01 Freq: Status: Active Protocol: Document 09/12/19 08:13 SAK (Rec: 09/12/19 16:22 [facility] [id number]) Self-Care/Home Management Treatment Education Patient Education Body Mechanics,Home Exercise Program,Pain Management, Posture Other Education benefits of aquatic therapy PT-OP-S Aquatic Treatment Start: 09/12/19 08:01 Freq: Status: Active Protocol: Document 12/04/19 13:15 DIANNE (Rec: 12/04/19 15:10 LJ [id number]) Aquatics Treatment Pool Entry/Exit Assistance Independent Comments already in pool Water Walking backward with hip circumduction-tandem, slow motion Water Level Waist Level Walking Equipment Ankle Floats Level of Assistance Verbal Cues [place] Water Level Chest Level Walking Equipment Ankle Floats Level of Assistance Verbal Cues [place] December Water Level Chest Level Walking Equipment Ankle Floats Level of Assistance Standby Assistance Comments #5 wts also Sideways Water Level Chest Level Walking Equipment Ankle Floats Level of Assistance Standby Assistance,Verbal Cues Comments arms- ab,add; horizontal ab,ad alternating Forwards Water Level Chest Level Level of Assistance Standby Assistance Comments ankle wts and floats Lower Extremity Exercises hip figure 8 Body Position Standing Water Level Chest Level Reps/Duration 10 B Comments no hh on wall HS curls Body Position Standing Water Level Chest Level Equipment Ankle Weight- 5.0# Reps/Duration 10x2 Comments no hh on wall hip circumduction-CW/CCW Body Position Standing Water Level Chest Level Equipment Ankle Weight- 5.0# Reps/Duration 10x2 bilaterally each direction Comments ankle floats also hip ab/ad Body Position Standing Water Level Chest Level Equipment Ankle Weight- 5.0# Reps/Duration 10x2 Comments ankle floats also hip flex/ext Body Position Standing Water Level Chest Level Equipment Ankle Weight- 5.0# Reps/Duration 10x2 Comments ankle floats also Upper Extremity Exercises Pull downs Body Position Standing Equipment long barbells Reps/Duration 15 Comments emphasizing posture and core stabilization horiz ab,add Body Position Standing Water Level Chest Level Equipment UE paddles Reps/Duration 10x2 Comments emphasizing scap retraction Spinal Exercises kneeling on wonderboard Water Level Neck Level [place] Activities [place] Activities Bicycle,Cross [place],Hip Abduction/Adduction Other Activities supine to standing with belt and ankle floats Equipment flotation belt, ankle floats PT-OP-T Assessment and Plan Start: 09/12/19 08:01 Freq: Status: Active Protocol: Document 12/04/19 13:15 DIANNE (Rec: 12/04/19 15:10 DIANNE [id number]) Physical Therapy Assessment Rehab Potential Rehabilitation Potential Good Evaluation Complexity Number of Personal Factors/Comorbidities 1-2 Number of Body Systems Impaired 3 Clinical Presentation at Evaluation Evolving Other Concerns Barriers to Rehabilitation prior lumbar fusion, right KENY Goals Three Impairment activity intolerance: Oswestry Disability Index score 42% Short Term Goal (STG) Improve activty tolerance as evidenced by decrease in Oswestry Disability Index score to no greater than 30% 11/08/19: good progress STG Duration 10/25/19 Longterm Goal (LTG) Decrease Oswestry score to no greater than 15% LTG Duration 12/11/19 Two Impairment weakness and decreased ability to activate core musculature for spinal stab Short Term Goal (STG) Instruct in aquatic exercise program for purposes of strengthening and spinal stabilization 11/08/19: good progress STG Duration 10/25/19 Room Worker Goal (LTG) Patient to be independent with aquatic exercise program and demonstrate improvement in strength and spinal stabilization ability to at least 4+/5 LTG Duration 12/11/19 One Impairment pain 5/10 Short Term Goal (STG) Decrease pain to no greater than 3/10 in low back with all usual activities 11/08/19: good progress as long as does exercises at home and in pool. STG Duration 10/25/19 Longterm Goal (LTG) Decrease pain to no greater than 1-2/10 with all usual activities LTG Duration 12/11/19 Assessment Summary Assessment Reviewed prior exercises and introduced ankle wts and floatation for variability and progression to continue to challange and strengthen core and extremeties. Pt given sheets of exercises which she reviewed and stated that she understood them. Physical Therapy Plan Frequency and Duration Frequency of Treatment 2x/Week Duration of Treatment 12 wks Plan of Care Start Date 09/12/19 Plan of Care End Date 12/11/19 Therapeutic Interventions Therapeutic Interventions Aquatic Therapy,Home Exercise Program,Patient/Caregiver Education,Self-Care/Home Management Next Visit Focus/Plan Next Note Type Treatment Note Next Visit Plan Pt is discharged with sheets of aquatic exercises for independent use
--- NOTE | 2020-06-12 08:47 | PT.OPDS ---
Current Diagnoses Radiculopathy, lumbar region (12/04/19) Weakness (12/04/19) Visit Care Team Role Provider Type Alexa Morris DO Primary Care Provider Physician Specialty: Family Practice Address: [address] [place] [address], [address], [place], [address] Email: [email or web address] Lary Whatley [place] Family Provider Non-Staff Specialty: Naturopathy Address: [address] [place] [address], [address] Email: Bishop Cullen MD Attending Provider Physician Specialty: Orthopedics Address: [address] [place] [address], [id number] Email: [email or web address] Visit Number Visit Number 15 Discharge Summary PT-OP-B Current Condition Start: 09/12/19 08:01 Freq: Status: Active Protocol: Document 09/12/19 08:13 CLAIR (Rec: 09/12/19 09:11 [facility] [id number]) Current Condition History of Current Condition Onset Date 2 years Current Complaints LBP with radicular symptoms History of Current Condition Patient presents to PT with c/ o function-limiting LBP with radicular symptoms including pain and LE weakness as well as numbness 2nd and 3rd toes all the time Prior fusion lumbar 2 years ago. Also 2 fusions cervical spine in 1989. Currently doing land-based PT with Joe Flores for hip pain right greater than left. Does HEP as well as yoga at 2 local studios and at home. Some radiating pain into legs and buttocks. Has obtained new bed recently for improved support. . Legs both give way at times, no falls but has caught herself. Uses CPAP for sleep. Questionable history of osteopenia. History of arthritis and right KENY. Prior Treatments and Tests Right KENY, possible ostopenia. MRI recently showed. Wears custom orthotics made 20 years ago. Future Testing and Treatments Planned none planned. Will be following up with doctor regarding MRI. Treatment Goals Patient/Caregiver Goals Minimize pain and be able to resume more active lifestyle Prior Functional Status Baseline Function- ADL's Independent Baseline Function- Mobility Independent Baseline Function- Gait independnet Baseline Function- Work/School retired Baseline Function- Recreation/Hobbies walking, yoga Current Functional Impairments (Reported) Functional Limitations- ADL's painful Functional Limitations- Mobility/Gait painful Functional Limitations- Work/School retired Functional Limitations- Recreation/ painful, tries to modify due Hobbies to KENY and lumbar fusion PT-OP-C Subjective Start: 09/12/19 08:01 Freq: Status: Active Protocol: Document 12/04/19 13:15 LJ (Rec: 12/04/19 15:10 LJ [id number]) OP-PT Subjective Patient Comments Patient Comments Pt is eager to go over [facility] for pool visits. She says she is feeling much better and wants to keep it up. PT-OP-F Manual Assessment Start: 09/12/19 08:01 Freq: Status: Active Protocol: Document 09/12/19 08:13 SAK (Rec: 09/12/19 09:43 SAK [id number]) Manual Assessments Soft Tissue Assessment Soft Tissue Mobility Assessment increased tightness bilateral lumbar paraspinals. Poor muscle tone bilateral gluteals Joint Mobility Assessment Joint Mobility Assessment NA due to prior lumbar fusion PT-OP-G Mobility & Gait Start: 09/12/19 08:01 Freq: Status: Active Protocol: Document 09/12/19 08:13 SAK (Rec: 09/12/19 09:43 SAK [id number]) OP Mobility Evaluation Functional Movements Squats modfied due to decreased hip ROM right (uses wedge with yoga) OP Gait Assessment Gait Gait Assistance Required: Independent Assistive Devices Assistive Device None PT-OP-H Neuro Start: 09/12/19 08:01 Freq: Status: Active Protocol: Document 09/12/19 08:13 SAK (Rec: 09/12/19 16:22 SAK [id number]) Sensation Evaluation Gross Sensation Gross Sensation Left LE Impaired PT-OP-J Posture/Palpation/Skin Start: 09/12/19 08:01 Freq: Status: Active Protocol: Document 09/12/19 08:13 SAK (Rec: 09/12/19 16:22 SAK [id number]) Posture Evaluation Position Standing L-Spine Posture Flattened Shoulder Posture (L) Rounded,(R) Rounded Pelvis Posture Neutral Hip Posture (L) Externally Rotated,(R) Externally Rotated Palpation Assessment Location One Palpation Location lumbar spine Palpation Findings Soft Tissue Tightness, Tenderness Skin Assessment Other Assessments Skin Assessment Comments intact. Old lumbar spine surgical scar well-healed with mobiity WNL PT-OP-K Range of Motion Start: 09/12/19 08:01 Freq: Status: Active Protocol: Document 09/12/19 08:13 [facility] (Rec: 09/12/19 16:22 [facility] [id number]) Lumbar Spine Range of Motion Lumbar Spine Active Testing Position Standing ROM Limitations Soft Tissue Tightness,Bony Restriction,Pain Comments Mod decrease in ROM all motions with c/o pain. Minimal motion occuring at lumbar spine. Hip Goniometric Range of Motion Hip mk Hip ROM WFL Yes Hip ROM Limitations Comments mild tightness mk hamstrings, moderate tightness bilateral quads and iliopsoas Ankle and Foot Goniometric Range of Motion Ankle and Foot mk Ankle/Foot ROM WFL Yes PT-OP-L Special Tests Start: 09/12/19 08:01 Freq: Status: Active Protocol: Document 09/12/19 08:13 [facility] (Rec: 09/12/19 16:22 [facility] [id number]) Special Tests Lumbar Spine Special Tests Straight Leg Raise Test Results negative Artemio Test Results positive mk Standing Flexion Test Results positive increase in symptoms Compression Test Results positive increase in symptoms PT-OP-M Strength Start: 09/12/19 08:01 Freq: Status: Active Protocol: Document 09/12/19 08:13 [facility] (Rec: 09/12/19 16:22 [facility] [id number]) Trunk Strength Trunk Manual Muscle Testing Flexion 4 Good Extension 4- Good- Core Stabilization decreased activation of transverse abdominis. Hip Strength Hip Manual Muscle Testing mk Flexion (L2) 4 Good Extension (S1) 4- Good- Abduction 4+ Good+ Adduction 4+ Good+ External Rotation 4- Good- Internal Rotation 4 Good Knee Strength Knee Manual Muscle Testing mk Flexion (S2) 5 Normal Extension (L3) 5 Normal Ankle/Foot Strength Ankle and Foot Manual Muscle Testing Right Dorsiflexion (L4) 4 Good Plantarflexion (S1) 5 Normal Left Dorsiflexion (L4) 5 Normal Plantarflexion (S1) 5 Normal PT-OP-T Assessment and Plan Start: 09/12/19 08:01 Freq: Status: Active Protocol: Document 06/12/20 08:46 SAK (Rec: 06/12/20 08:47 CLAIR [id number]) Physical Therapy Plan Discharge Physical Therapy Discharge Reasons No Longer Attending PT
== END 2020-06-13 11:30 ==
LOC: PHYS 13:15
PROVIDERS: Family Provider Naturopath; PCP Family Medicine; Visit Provider Physical Medicine & Rehabilitation
DX: M54.16 Radiculopathy, lumbar region (principal); R53.1 Weakness
CPT/HCPCS: 97113; 97162; 97535

== ENCOUNTER → 2020-05-11 09:30 | Outpatient (CLI) | payer MEDICARE, OTHER, SELFPAY ==
[2019-01-04 17:22] VITALS: BMI 27.1
[2020-05-11 11:19] LABS: BUN Creatinine Ratio 18.1 (6-22); Blood Urea Nitrogen 13 mg/dL (7-17); Calcium 9.9 mg/dL (8.4-10.2); Carbon Dioxide 31 mmol/L (22-32); Chloride 104 mmol/L (98-107); Estimated Glomerular Filt Rate > 60.0 mL/min (>60); Glucose 119 mg/dL (80-110); HEMOLYSIS < 15 (0-50); Potassium 4.5 mmol/L (3.4-5.1); Sodium 139 mmol/L (137-145)
[2020-05-11 11:22] LABS: High Sensitivity CRP - Cardiac 1.9 mg/L (1.0-3.0)
[2020-05-11 11:30] LABS: Hemoglobin A1C% w Est Avg Glu 5.4 % (4.0-6.0)
== END ==
PROVIDERS: Family Provider Naturopath; PCP Family Medicine; Referring Provider Family Medicine; Visit Provider Family Medicine
DX: K59.00 Constipation, unspecified (principal); L65.9 Nonscarring hair loss, unspecified; R73.03 Prediabetes; E78.2 Mixed hyperlipidemia
CPT/HCPCS: 36415; 80048; 83036; 84443; 86140

== ENCOUNTER 2020-06-24 17:39 | Emergency (ER) | payer MEDICARE, OTHER, SELFPAY ==
[2019-01-04 17:22] VITALS: BMI 27.1
[2020-06-24 17:51] VITALS: BP 147/72; PULSE 70; RESP 24; TEMP 37; O2SAT 97; BMI 29.0
[2020-06-24] MEDS: ALBUTEROL HFA 200 PUFF/18 GM INH (COVID POS/VENT PTS) INH (18:04)
--- NOTE | 2020-06-24 18:04 | DI.RAD.S_ITS ---
PROCEDURE: XR CHEST 2V INDICATIONS: cogh, chest tightness, hx of asthma TECHNIQUE: 2 views of the chest were acquired. COMPARISON: [facility], , CHEST 2 VIEW, 02/16/2017, 8:42. FINDINGS: Surgical changes and devices: None. Lungs and pleura: Lungs are clear. No pleural effusions or pneumothorax. Mediastinum: Mediastinal contours are normal. Heart size is normal. Bones and chest wall: No suspicious bony abnormalities. Soft tissues appear unremarkable. IMPRESSION: No acute cardiopulmonary abnormalities or focal airspace disease. Dictated by: Antolin Lepe M.D. on 06/24/2020 at 18:43 Approved by: Antolin Lepe M.D. on 06/24/2020 at 18:43
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
[2020-06-24] MEDS: predniSONE 20 MG TABLET 40 MG PO (18:10)
[2020-06-24 18:11] VITALS: PULSE 68; RESP 18; O2SAT 96
[2020-06-24 18:54] VITALS: BP 116/66; PULSE 77; RESP 22; O2SAT 93
[2020-06-24 19:24] VITALS: BP 128/60; PULSE 70; RESP 18; O2SAT 98
[2020-06-24 19:43] LABS: COVID19 -Nasal RAPID Negative (Negative)
== END 2020-06-24 19:25 | disposition home or self-care (01) ==
PROVIDERS: Emergency Provider Nurse Practitioner Family; Family Provider Naturopath; PCP Family Medicine
DX: J45.31 Mild persistent asthma with (acute) exacerbation (principal); R07.9 Chest pain, unspecified
CPT/HCPCS: 71046; 87635; 93005; 93010; 99284

== ENCOUNTER → 2020-11-05 09:14 | Outpatient (CLI) | payer MEDICARE, OTHER, SELFPAY ==
[2020-06-25 11:13] VITALS: BMI 27.1
[2020-11-05 11:11] LABS: Alanine Aminotransferase 38 IU/L (<35); Albumin 4.2 g/dL (3.5-5.0); Albumin Globulin Ratio 1.8 (1.0-2.8); Alkaline Phosphatase 99 U/L (38-126); Aspartate Aminotransferase 34 IU/L (14-36); BUN Creatinine Ratio 23.9 (6-22); Bilirubin Total 0.4 mg/dL (0.2-1.3); Blood Urea Nitrogen 17 mg/dL (7-17); Calcium 9.5 mg/dL (8.4-10.2); Carbon Dioxide 33 mmol/L (22-32); Chloride 104 mmol/L (98-107); Cholesterol 263 mg/dL (140-199); Estimated Glomerular Filt Rate > 60.0 mL/min (>60); Globulin 2.3 g/dL (1.7-4.1); Glucose 120 mg/dL (80-110); HDL Cholesterol 63 mg/dL (40-60); LDL Cholesterol Calculated 181 mg/dL (<100); Potassium 4.5 mmol/L (3.4-5.1); Sodium 138 mmol/L (137-145); Total Protein 6.5 g/dL (6.3-8.2); Triglycerides 96 mg/dL (35-150)
[2020-11-05 12:14] LABS: HEMOLYSIS < 15 (0-50); High Sensitivity CRP - Cardiac 1.3 mg/L (1.0-3.0)
== END ==
PROVIDERS: Family Provider Naturopath; PCP Family Medicine; Referring Provider Family Medicine; Visit Provider Family Medicine
DX: E78.2 Mixed hyperlipidemia (principal); I51.9 Heart disease, unspecified; R73.03 Prediabetes
CPT/HCPCS: 36415; 80053; 80061; 86140

== ENCOUNTER → 2020-11-08 16:32 | Outpatient (CLI) | payer MEDICARE, OTHER, SELFPAY ==
[2020-06-25 11:13] VITALS: BMI 27.1
--- NOTE | 2020-11-08 16:35 | DI.MG.S_ITS ---
BILATERAL DIGITAL SCREENING MAMMOGRAM 3D/2D WITH CAD: 11/08/2020 CLINICAL: Routine screening. Family history of breast cancer. Comparison is made to exams dated: 10/30/2019 mammogram, 10/20/2018 mammogram, and 05/24/2017 mammogram - [facility]. There are scattered fibroglandular elements in both breasts. Current study was also evaluated with a Computer Aided Detection (CAD) system. No significant masses, calcifications, or other findings are seen in either breast. There has been no significant interval change. IMPRESSION: NEGATIVE There is no mammographic evidence of malignancy. A 1 year screening mammogram is recommended. This exam was interpreted at Station ID: [id number]. NOTE: For mammograms, a report in lay terms will be sent to the patient. Approximately 15% of breast malignancies will not be visualized mammographically. In the management of a palpable breast mass, a negative mammogram must not discourage biopsy of a clinically suspicious lesion. Electronically Signed By: Dorian sen/vaughn:11/13/2020 07:51:05 letter sent: Normal Exam ACR BI-RADS Category 1: Negative [id number]
== END ==
PROVIDERS: Family Provider Naturopath; PCP Family Medicine; Referring Provider Family Medicine; Visit Provider Family Medicine
DX: Z12.31 Encounter for screening mammogram for malignant neoplasm of breast (principal)
CPT/HCPCS: 77063; 77067

== ENCOUNTER → 2020-12-05 07:12 | Outpatient (CLI) | payer MEDICARE, OTHER, SELFPAY ==
[2020-06-25 11:13] VITALS: BMI 27.1
--- NOTE | 2020-12-05 07:13 | DI.US.S_ITS ---
PROCEDURE: US PERIPH VENOUS LOW EXTREM RT INDICATIONS: THIGH PAIN TECHNIQUE: Real-time imaging, as well as color and pulse Doppler interrogation, were performed of the lower extremity deep veins from the inguinal ligament to the popliteal fossa. COMPARISON: None. FINDINGS: The common femoral, femoral and popliteal veins are normally compressible, and free of intraluminal thrombus. Color and pulse Doppler demonstrate normal phasic intraluminal flow. There is normal augmentation response to distal compression maneuver. IMPRESSION: No sonographic evidence of deep venous thrombosis in the right lower extremity. Dictated by: Armand Lockett M.D. on 12/05/2020 at 8:16 Approved by: Armand Lockett M.D. on 12/05/2020 at 8:17
== END ==
PROVIDERS: Family Provider Naturopath; PCP Family Medicine; Referring Provider Registered Nurse Diabetes Educator; Visit Provider Registered Nurse Diabetes Educator
DX: M79.651 Pain in right thigh (principal)
CPT/HCPCS: 93971

== ENCOUNTER → 2020-12-30 13:10 | Outpatient (CLI) | payer MEDICARE, OTHER, SELFPAY ==
[2020-06-25 11:13] VITALS: BMI 27.1
--- NOTE | 2020-12-30 13:14 | DI.CT.S_ITS ---
PROCEDURE: CT LUMBAR SPINE WO CON INDICATIONS: right leg pain TECHNIQUE: Noncontrast 3 mm thick sections acquired from the T12 level to the sacrum. Sagittal and coronal reformats were constructed. For radiation dose reduction, the following was used: automated exposure control. COMPARISON: [facility] [place], CR, XR LUMBAR SPINE 2 OR 3 VIEWS, 08/01/2019, 16:18. [facility], CT, CT LUMBAR SPINE WITHOUT CONTRAST, 03/10/2019, 10:39. [facility], MR, MR LUMBAR SPINE WO CON, 09/06/2019, 12:38. FINDINGS: Image quality: Excellent. Bones: Postsurgical changes compatible with L4-L5 TLIF. Orthopedic hardware is intact. No lucency is identified at the bone-hardware interface. There is normal bony alignment. No acute vertebral body compression fractures. No suspicious lytic or blastic bony lesions. No pars defects. T12-L1: Disc height is normal. Mild, diffuse disc bulge. No central stenosis. No neural foraminal narrowing. No neural compression. L1-L2: Disc height is normal. Mild to moderate diffuse disc bulge. Small central disc protrusion. Mild narrowing of the central canal. Mild bilateral neural foraminal narrowing. No neural compression. L2-L3: Loss of disc height. Vacuum disc phenomenon. Anterior endplate osteophytosis. Mild, diffuse disc bulge. Mild ligamentum flavum hypertrophy. Mild to moderate narrowing of the central canal. Mild to moderate bilateral neural foraminal narrowing. No neural compression. L3-L4: Loss of disc height. Moderate, diffuse disc bulge. Mild bilateral facet hypertrophy. Moderate ligamentum flavum hypertrophy. Moderate narrowing of the central canal. Severe bilateral neural foraminal narrowing secondary to disc disease and facet hypertrophy with slight compression of the exiting L3 nerve roots. L4-L5: Status post fusion. Mild bilateral facet hypertrophy. No central stenosis. No neural foraminal narrowing. No neural compression. L5-S1: Disc height is normal. Mild, diffuse disc bulge. Moderate bilateral facet hypertrophy. Mild narrowing of the central canal. No neural foraminal narrowing. No neural compression. Soft tissues: No retroperitoneal masses or hematomas. Visualized aorta is normal in caliber. Scattered atherosclerotic calcifications involving the visualized abdominal and pelvic vasculature. IMPRESSION: 1. T4-T5 TLIF. 2. Multilevel degenerative disc disease. 3. Multilevel facet arthropathy. 4. Moderate L3-L4 central canal narrowing. 5. Severe bilateral L3-L4 neural foraminal narrowing with slight compression of the exiting bilateral L3 nerve roots. 6. No vertebral body compression fracture. Dictated by: Angeline Borrero MD, PhD on 12/30/2020 at 14:02 Approved by: Angeline Borrero MD, PhD on 12/30/2020 at 14:12
== END ==
PROVIDERS: Family Provider Naturopath; PCP Family Medicine; Referring Provider Family Medicine; Visit Provider Family Medicine
DX: M51.16 Intervertebral disc disorders with radiculopathy, lumbar region (principal); M51.17 Intervertebral disc disorders with radiculopathy, lumbosacral region; M47.26 Other spondylosis with radiculopathy, lumbar region; M47.27 Other spondylosis with radiculopathy, lumbosacral region; M48.061 Spinal stenosis, lumbar region without neurogenic claudication; M48.07 Spinal stenosis, lumbosacral region; M79.604 Pain in right leg; Z98.1 Arthrodesis status
CPT/HCPCS: 72131

== ENCOUNTER → 2021-04-15 09:19 | Outpatient (CLI) | payer MEDICARE, OTHER, SELFPAY ==
[2020-06-25 11:13] VITALS: BMI 27.1
[2021-04-15 10:20] LABS: Add Manual Diff / Slide Review NO; Basophils Absolute Auto 0 /uL (0-100); Basophils Percent Auto 1.1 % (0-2); Eosinophils Absolute Auto 100 /uL (0-450); Eosinophils Percent Auto 3.7 % (2-4); Hematocrit 42.2 % (36-46); Hemoglobin 14.3 g/dL (12.0-16.0); Lymphocytes Absolute Auto 1000 /uL (1100-4500); Lymphocytes Percent Auto 27.7 % (25-40); Mean Corpuscular HGB Conc 33.9 % (30-36); Mean Corpuscular Hemoglobin 31.8 PG (26-34); Mean Corpuscular Volume 93.6 fL (80-100); Monocytes Absolute Auto 300 /uL (0-900); Monocytes Percent Auto 9.1 % (3-14); Neutrophils Absolute Auto 2200 /uL (1500-7000); Neutrophils Percent Auto 58.4 % (50-75); Platelet Count 198 X10^3/uL (150-400); Red Blood Cell Count 4.51 X10^6/uL (4.0-5.2); Red Cell Distribution Width 14.1 % (11.6-14.8); White Blood Cell Count 3.8 X10^3/uL (4.5-11.0)
[2021-04-15 10:24] LABS: Cholesterol 218 mg/dL (140-199); HDL Cholesterol 52 mg/dL (40-60); LDL Cholesterol Calculated 146 mg/dL (<100); Triglycerides 101 mg/dL (35-150)
== END ==
PROVIDERS: Family Provider Naturopath; PCP Family Medicine; Referring Provider Family Medicine; Visit Provider Family Medicine
DX: I10 Essential (primary) hypertension (principal); E78.2 Mixed hyperlipidemia; R73.03 Prediabetes
CPT/HCPCS: 36415; 80061; 85025

== ENCOUNTER → 2021-10-18 07:51 | Outpatient (CLI) | payer MEDICARE, OTHER, SELFPAY ==
[2021-07-29 11:57] VITALS: BMI 27.1
[2021-10-18 09:12] LABS: Alanine Aminotransferase 24 IU/L (<35); Albumin 4.2 g/dL (3.5-5.0); Albumin Globulin Ratio 1.8 (1.0-2.8); Alkaline Phosphatase 84 U/L (38-126); Aspartate Aminotransferase 26 IU/L (14-36); BUN Creatinine Ratio 18.3 (6-22); Bilirubin Total 0.6 mg/dL (0.2-1.3); Blood Urea Nitrogen 15 mg/dL (7-17); Calcium 9.7 mg/dL (8.4-10.2); Carbon Dioxide 30 mmol/L (22-32); Chloride 107 mmol/L (98-107); Cholesterol 164 mg/dL (140-199); Estimated Glomerular Filt Rate > 60.0 mL/min (>60); Globulin 2.4 g/dL (1.7-4.1); Glucose 106 mg/dL (80-110); HDL Cholesterol 58 mg/dL (40-60); HEMOLYSIS < 15 (0-50); LDL Cholesterol Calculated 87 mg/dL (<100); Potassium 4.1 mmol/L (3.4-5.1); Sodium 140 mmol/L (137-145); Total Protein 6.6 g/dL (6.3-8.2); Triglycerides 96 mg/dL (35-150)
== END ==
PROVIDERS: Family Provider Naturopath; PCP Family Medicine; Referring Provider Family Medicine; Visit Provider Family Medicine
DX: E78.2 Mixed hyperlipidemia (principal); R73.03 Prediabetes
CPT/HCPCS: 36415; 80053; 80061

== ENCOUNTER → 2022-02-19 10:07 | Outpatient (CLI) | payer MEDICARE, OTHER, SELFPAY ==
[2021-07-29 11:57] VITALS: BMI 27.1
--- NOTE | 2022-02-19 | DI.MG.S_ITS ---
BILATERAL DIGITAL SCREENING MAMMOGRAM 3D/2D WITH CAD: 02/19/2022 CLINICAL: Routine screening. Family history of breast cancer. Comparison is made to exams dated: 11/08/2020 mammogram, 10/30/2019 mammogram, and 10/20/2018 mammogram - [facility]. The tissue of both breasts is heterogeneously dense. This may lower the sensitivity of mammography. Current study was also evaluated with a Computer Aided Detection (CAD) system. There are benign calcifications in both breasts. No significant masses, calcifications, or other findings are seen in either breast. There has been no significant interval change. IMPRESSION: BENIGN There is no mammographic evidence of malignancy. A 1 year screening mammogram is recommended. This exam was interpreted at Station ID: [id number]. NOTE: For mammograms, a report in lay terms will be sent to the patient. Approximately 15% of breast malignancies will not be visualized mammographically. In the management of a palpable breast mass, a negative mammogram must not discourage biopsy of a clinically suspicious lesion. Electronically Signed By: Chalino Seymour acr/penrad:02/19/2022 13:41:33 letter sent: Normal Exam ACR BI-RADS Category 2: Benign Finding(s) 3342F
== END ==
PROVIDERS: Family Provider Naturopath; PCP Family Medicine; Referring Provider Family Medicine; Visit Provider Family Medicine
DX: Z12.31 Encounter for screening mammogram for malignant neoplasm of breast (principal); Z80.3 Family history of malignant neoplasm of breast
CPT/HCPCS: 77063; 77067

== ENCOUNTER → 2022-03-30 09:18 | Outpatient (CLI) | payer MEDICARE, OTHER, SELFPAY ==
[2021-07-29 11:57] VITALS: BMI 27.1
[2022-03-30 10:39] LABS: Add Manual Diff / Slide Review NO; Basophils Absolute Auto 0 /uL (0-100); Basophils Percent Auto 0.8 % (0-2); Eosinophils Absolute Auto 300 /uL (0-450); Eosinophils Percent Auto 4.7 % (2-4); Hematocrit 42.1 % (36-46); Hemoglobin 14.4 g/dL (12.0-16.0); Lymphocytes Absolute Auto 1400 /uL (1100-4500); Lymphocytes Percent Auto 23.3 % (25-40); Mean Corpuscular HGB Conc 34.2 % (30-36); Mean Corpuscular Hemoglobin 31.9 PG (26-34); Mean Corpuscular Volume 93.1 fL (80-100); Monocytes Absolute Auto 400 /uL (0-900); Monocytes Percent Auto 7.6 % (3-14); Neutrophils Absolute Auto 3700 /uL (1500-7000); Neutrophils Percent Auto 63.6 % (50-75); Platelet Count 215 X10^3/uL (150-400); Red Blood Cell Count 4.52 X10^6/uL (4.0-5.2); Red Cell Distribution Width 13.1 % (11.6-14.8); White Blood Cell Count 5.9 X10^3/uL (4.5-11.0)
[2022-03-30 12:27] LABS: Hemoglobin A1C% w Est Avg Glu 5.6 % (4.0-6.0)
== END ==
PROVIDERS: Family Provider Naturopath; PCP Family Medicine; Referring Provider Pediatrics; Visit Provider Pediatrics
DX: E66.3 Overweight (principal); R73.03 Prediabetes
CPT/HCPCS: 36415; 83036; 85025

== ENCOUNTER → 2022-04-04 08:26 | Outpatient (CLI) | payer MEDICARE, OTHER, SELFPAY ==
[2021-07-29 11:57] VITALS: BMI 27.1
--- NOTE | 2022-04-04 08:28 | DI.MRI.S_ITS ---
PROCEDURE: MR KNEE LT WO CON INDICATIONS: left knee trauma/swelling for 3 mos, ligamentous vs meniscea TECHNIQUE: Noncontrast sagittal PD fast spin echo and T2 fast spin echo with fat saturation, sagittal 3-D FLASH with fat saturation; coronal T1 spin echo and PD fast spin echo with fat saturation, and axial PD fast spin echo with fat saturation through the knee. COMPARISON: None. FINDINGS: Image quality: Excellent. Menisci: There is medial meniscal extrusion and horizontal tear involving the posterior horn and body of the medial meniscus. The lateral meniscus demonstrates normal morphology and internal signal. There is intrasubstance degeneration in the posterior root of the lateral meniscus. There is prominent ligament of Thacker. Cruciate ligaments: The anterior and posterior cruciate ligaments appear intact. Medial structures: The medial collateral ligament appears intact. The semimembranosus tendon insertions and meniscocapsular junction appear intact. Visualized portions of the pes anserinus tendons appear normal. No abnormal bursal fluid. Lateral structures: The lateral collateral ligament and the biceps femoris tendon appear intact. The popliteus tendon appears normal. Iliotibial band appears normal. Anterior structures: The quadriceps and patellar tendons appear intact. There is tricompartmental chondromalacia, most pronounced in the medial femorotibial compartment and patellofemoral compartment with kxgi-qdojprevw-tjjeotc articular surface of the medial facet of patella and weight-bearing portion of the medial femoral condyle. Reactive subchondral edema in the medial tibial plateau. Bones and cartilage: No bone marrow contusions or fractures. There is tricompartmental cartilage thinning and fibrillation, most pronounced in the medial femorotibial compartment with cartilage denuded articular surface of the medial femoral condyle and medial tibial plateau. Prominent cartilage loss is also seen in the medial facet of patella. Joint space: There is small knee joint fluid. There is a moderate-sized multilocular Ortiz's cyst. Normal appearing synovial plicae are incidentally noted. There is a 4 x 7 mm intra-articular body in the intercondylar notch (series 9, image 18; series 6, image 14). IMPRESSION: 1. Horizontal tear of the posterior horn and body of the medial meniscus. 2. 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 3. Moderate-sized multilocular Ortiz's cyst. 4. A 4 x 7 mm intra-articular body in the intercondylar notch. 5. Small knee joint effusion. Dictated by: Spencer Berumen M.D. on 04/06/2022 at 8:23 Approved by: Spencer Berumen M.D. on 04/06/2022 at 12:35
== END ==
PROVIDERS: Family Provider Naturopath; PCP Pediatrics; Referring Provider Pediatrics; Visit Provider Pediatrics
DX: S83.242A Other tear of medial meniscus, current injury, left knee, initial encounter (principal); M94.262 Chondromalacia, left knee; M71.22 Synovial cyst of popliteal space [Baker], left knee; M25.462 Effusion, left knee; M25.562 Pain in left knee; M21.70 Unequal limb length (acquired), unspecified site; M99.06 Segmental and somatic dysfunction of lower extremity; G89.29 Other chronic pain
CPT/HCPCS: 73721

== ENCOUNTER → 2022-05-04 12:41 | Outpatient (CLI) | payer MEDICARE, OTHER, SELFPAY ==
[2021-07-29 11:57] VITALS: BMI 27.1
== END ==
PROVIDERS: Family Provider Naturopath; PCP Pediatrics; Referring Provider Pediatrics; Visit Provider Pediatrics
DX: M85.852 Other specified disorders of bone density and structure, left thigh (principal); M25.562 Pain in left knee; Z13.820 Encounter for screening for osteoporosis; Z78.0 Asymptomatic menopausal state; Z90.710 Acquired absence of both cervix and uterus
CPT/HCPCS: 77080; 77081

== ENCOUNTER → 2022-08-05 07:49 | Outpatient (CLI) | payer MEDICARE, OTHER, SELFPAY ==
[2021-07-29 11:57] VITALS: BMI 27.1
[2022-08-05 10:51] LABS: Cholesterol 164 mg/dL (140-199); HDL Cholesterol 56 mg/dL (40-60); LDL Cholesterol Calculated 88 mg/dL (<100); Triglycerides 98 mg/dL (35-150)
== END ==
PROVIDERS: Family Provider Naturopath; PCP Family Medicine; Referring Provider Family Medicine; Visit Provider Family Medicine
DX: E78.2 Mixed hyperlipidemia (principal)
CPT/HCPCS: 36415; 80061

== ENCOUNTER → 2022-10-29 12:04 | Outpatient (CLI) | payer MEDICARE, OTHER, SELFPAY ==
[2021-07-29 11:57] VITALS: BMI 27.1
--- NOTE | 2022-10-29 12:05 | DI.RAD.S_ITS ---
PROCEDURE: XR LUMBAR SPINE MIN 4V INDICATIONS: Low Back Pain TECHNIQUE: 5 views of the lumbar spine were acquired, including bilateral oblique views. COMPARISON: [facility], CT, CT LUMBAR SPINE WO CON, 12/30/2020, 13:13. [facility], CR, XR LUMBAR SPINE 2 OR 3 VIEWS, 08/01/2019, 16:18. [facility], CR, L-SPINE 2-3 VIEWS, 08/06/2016, 15:03. FINDINGS: Bones: 5 nonrib-bearing vertebrae are present. Postsurgical changes are again seen from posterior fixation at the L4-5 level with pedicle screws and interbody rods and a disc spacer. Metallic hardware is intact with unchanged alignment. There is mild dextroconvex curvature of the lumbar spine. Multilevel disc space narrowing degenerative endplate changes are most prominent at the L2-3 and L3-4 disc space levels. Findings appear to have mildly progressed at the L3-4 level when compared to the radiographs from 08/01/2019. There is multilevel facet hypertrophy. No vertebral body compression fractures. No suspicious bony lesions. Right hip arthroplasty is noted. Soft tissues: Overlying bowel gas pattern is normal. No suspicious soft tissue calcifications. Aortic atherosclerotic calcifications are present. Oblique images: No pars defects. IMPRESSION: 1. Postsurgical changes again seen from posterior fixation at the L4-5 level. 2. Multilevel degenerative disc disease and facet hypertrophy are seen that appear to have progressed at the L3-4 level when compared to prior studies. Approved by: Armand Lockett M.D. on 10/29/2022 at 14:26
== END ==
PROVIDERS: Family Provider Naturopath; PCP Family Medicine; Referring Provider Anesthesiology; Visit Provider Anesthesiology
DX: M51.16 Intervertebral disc disorders with radiculopathy, lumbar region (principal); I70.0 Atherosclerosis of aorta; M47.26 Other spondylosis with radiculopathy, lumbar region; M54.50 Low back pain, unspecified; G89.29 Other chronic pain; Z98.1 Arthrodesis status
CPT/HCPCS: 72110; 99214

== ENCOUNTER → 2022-12-14 15:52 | Outpatient (CLI) | payer MEDICARE, OTHER, SELFPAY ==
[2021-07-29 11:57] VITALS: BMI 27.1
--- NOTE | 2022-12-14 | DI.MRI.S_ITS ---
PROCEDURE: MR LUMBAR SPINE WO CON INDICATIONS: Spondylosis without myelopathy or radiculopathy, lumbar karla TECHNIQUE: Noncontrast sagittal T1 spin echo and T2 fast echo, sagittal STIR, and T2 fast spin echo through the lumbar spine. In cases with scoliosis, additional coronal T2 fast spin echo may be performed. COMPARISON: [facility], CR, XR LUMBAR SPINE MIN 4V, 10/29/2022, 12:16. [facility], CT, CT LUMBAR SPINE WO CON, 12/30/2020, 13:13. [facility], MR, MR LUMBAR SPINE WO CON, 09/06/2019, 12:38. FINDINGS: Image quality: Excellent. Alignment and Curvature: There is normal bony alignment. Remote posterior lateral frantz and pedicle screw fixation at L4-L5 with interbody spacer placement. Bone Marrow: Marrow is of normal overall signal. No acute vertebral body compression fractures. Spinal Cord: Conus medullaris terminates at the L1-L2 level. Visualized cord demonstrates normal signal and size. Paraspinous Soft Tissues: No paravertebral masses. T12-L1: Disc bulge. Mild facet hypertrophy. No canal stenosis or foraminal stenosis. L1-L2: Significant interval decrease in size of central posterior disc protrusion/extrusion, with minimal residual shallow protrusion/extrusion present. No canal stenosis. Facet hypertrophy. No significant foraminal stenosis. L2-L3: Slight interval increase in disc height loss. Diffuse disc bulge. Facet hypertrophy. No significant canal stenosis. No significant foraminal stenosis. L3-L4: Interval increase in disc height loss, severe. The diffuse disc bulge as diminished somewhat. However, a combination of facet and ligament hypertrophy and epidural lipomatosis which has a masslike effect on the posterior aspect of the thecal sac results in worsening of canal stenosis, with severe central canal stenosis and marked bilateral lateral recess stenosis. There is mild right and moderate left foraminal narrowing, with flattening deformity on the exiting left L3 nerve root. L4-L5: Fused with remote left hemilaminectomy and partial facetectomy. No canal stenosis or significant foraminal stenosis. L5-S1: Bilateral facet hypertrophy. No canal stenosis or significant foraminal stenosis. IMPRESSION: 1. Expected appearance of the head surgical level, L4-L5. 2. Interval progression of canal stenosis at L3-L4, with severe central canal stenosis in marked bilateral lateral recess stenosis. 3. Multilevel facet arthropathy. 4. There is moderate left foraminal narrowing at L3-L4. Dictated by: Barney Agustin M.D. on 12/14/2022 at 17:21 Approved by: Barney Agustin M.D. on 12/14/2022 at 17:31
== END ==
PROVIDERS: Family Provider Naturopath; PCP Family Medicine; Referring Provider Physical Medicine & Rehabilitation; Visit Provider Physical Medicine & Rehabilitation
DX: M47.816 Spondylosis without myelopathy or radiculopathy, lumbar region (principal); M48.061 Spinal stenosis, lumbar region without neurogenic claudication
CPT/HCPCS: 72148

== ENCOUNTER → 2023-02-26 11:56 | Outpatient (CLI) | payer MEDICARE, OTHER, SELFPAY ==
[2021-07-29 11:57] VITALS: BMI 27.1
--- NOTE | 2023-02-26 11:57 | DI.MG.S_ITS ---
BILATERAL DIGITAL SCREENING MAMMOGRAM 3D/2D WITH CAD: 02/26/2023 CLINICAL: Routine screening. Family history of breast cancer. Comparison is made to exams dated: 02/19/2022 mammogram, 11/08/2020 mammogram, and 10/30/2019 mammogram - [facility]. There are scattered areas of fibroglandular density in both breasts (category b / 25%-50% glandular tissue). Current study was also evaluated with a Computer Aided Detection (CAD) system. No significant masses, calcifications, or other findings are seen in either breast. There has been no significant interval change. IMPRESSION: NEGATIVE There is no mammographic evidence of malignancy. A 1 year screening mammogram is recommended. Based on the Tyrer Cuzick model (a risk assessment model) the patient's lifetime risk is 7.4% and her 10 year risk is 5.5%. According to the ACR, ACS, and NCCN guidelines, an annual breast MRI exam along with mammogram is recommended if the patient's lifetime risk is 20% or greater. This exam was interpreted at Station ID: [id number]. NOTE: For mammograms, a report in lay terms will be sent to the patient. Approximately 15% of breast malignancies will not be visualized mammographically. In the management of a palpable breast mass, a negative mammogram must not discourage biopsy of a clinically suspicious lesion. Electronically Signed By: Armand estevez/vaughn:02/26/2023 14:14:06 letter sent: Normal Exam ACR BI-RADS Category 1: Negative 3341F
== END ==
PROVIDERS: Family Provider Naturopath; PCP Family Medicine; Referring Provider Family Medicine; Visit Provider Family Medicine
DX: Z12.31 Encounter for screening mammogram for malignant neoplasm of breast (principal); Z80.3 Family history of malignant neoplasm of breast
CPT/HCPCS: 77063; 77067

== ENCOUNTER 2023-03-11 10:50 | Day surgery (SDC) | payer MEDICARE, OTHER, SELFPAY ==
[2021-07-29 11:57] VITALS: BMI 27.1
--- NOTE | 2023-03-11 | PATH_ITS ---
[facility] Accession Number: [id number] No. of containers..04 Tissue . 01 Material submitted: . PART A: duodenum - DUODENAL PART B: gastrointestinal site - ANTRUM PART C: colon - TRANSVERSE POLYP PART D: colon - SIGMOID POLYP . 01 Diagnosis: A. Duodenum, Biopsy: Small bowel mucosa with no diagnostic abnormality. Negative for active inflammation, features of sprue, dysplasia, or malignancy. . B. Gastric Antrum, Biopsy: Gastric antral mucosa with mild chronic inflammation and intestinal metaplasia. Intestinal metaplasia present in three of three biopsy fragments. Negative for Helicobacter organisms by immunohistochemistry. Negative for dysplasia or malignancy. . C. Transverse Colon Polyp: Tubular adenoma. . D. Sigmoid Colon Polyp: Hyperplastic polyp. [facility] 03/18/2023 1356 Local . 01 Electronically signed: . Gary Arevalo MD, PhD, Pathologist NPI- [id number] . 01 Gross description: . Part A: DUODENAL: Received in formalin is 1 fragment(s) of romero, soft tissue measuring 0.3 x 0.2 x 0.2 cm submitted entirely in 1 cassette(s) Part B: ANTRUM: Received in formalin are 3 fragment(s) of romero, soft tissue measuring 0.1 x 0.1 x 0.1 cm to 0.3 x 0.2 x 0.2 cm submitted entirely in 1 cassette(s) Part C: TRANSVERSE POLYP: Received in formalin is 1 fragment(s) of romero, soft tissue measuring 0.3 x 0.1 x 0.1 cm submitted entirely in 1 cassette(s) Part D: SIGMOID POLYP: Received in formalin is 1 fragment(s) of romero, soft tissue measuring 0.5 x 0.3 x 0.2 cm submitted entirely in 1 cassette(s) /KAL[facility] 03/15/2023 1900 Local . 01 Microscopic: . B. An immunohistochemical stain was performed to evaluate for Helicobacter organisms and is negative. The control stain showed appropriate reactivity. . * This test was developed and its performance characteristics determined by [employer]. It has not been cleared or approved by the U.S. Food and Drug Administration. The FDA has determined that such clearance or approval is not necessary. This test is used for clinical purposes. It should not be regarded as investigational or for research. . 01 Pathologist provided ICD-10: K29.70, K31.9, D12.3 . 01 CPT . 934171, 709411, 038381, 770293, [id number] Specimen Comment: A courtesy copy of this report has been sent to [phone] Performed at: 01 [facility] [address] [place] [address], [place], [place] [id number] MD Dorian Jimenez MD Phone: [phone]
[2023-03-11 13:59] VITALS: BMI 27.3
[2023-03-11] MEDS: LACTATED RINGERS 1,000 ML 150 ML IV (14:17)
--- NOTE | 2023-03-11 15:01 | PM.PREOP ---
Pre-operative Note COVID-19 COVID-19 status: Not tested Interval Note History & Physical reviewed/Exam performed by Physician: Yes Changes to H&P: No ASA Class (for procedural sedation): II
[2023-03-11 15:56] VITALS: BP 120/78; PULSE 77; RESP 22; O2SAT 95
--- NOTE | 2023-03-11 16:59 | PM.OP.EC ---
Operative Date/Time/Diagnoses Date of procedure: 03/11/23 Time of procedure: 16:59 Pre-op diagnosis: Dysphagia and history of polyps Post-op diagnosis: same Procedure & Clinicians Study performed: EGD and colonoscopy Same procedure as scheduled: Yes Surgeon: Patrice Pang Procedure Notes Procedure in detail: Surgeon: Patrice Pang MD Anesthesia: To Shrestha CRNA Procedure in detail: A timeout was performed. A bite blocked was placed and monitors were attached to the patient. The patient was positioned in a left lateral decubitus position. Sedation was administered. Once the patient was sedated the endoscope was inserted through the bite block and passed through the esophagus and stomach and into the duodenum. Random biopsies were taken from the duodenum. We then withdrew the scope into the stomach. There was mild antritis and random biopsies were taken from the antrum. The endoscope was retroflexed and no hiatal hernia seen. The endoscope was straightned and withdrawn into the esophagus. No other abnormalities were seen. Findings: Mild antritis Next we repositioned the patient for a colonoscopy. A digital rectal exam was performed and was normal. The colonoscope was inserted and advanced with some difficulty to the cecum. The appendiceal orifice was identified and photographed. The scope was slowly withdrawn over greater than 6 minutes. There was a small roughly 3 mm polyp in the transverse colon removed with a Jumbo forceps. There was a 5 mm polyp in the sigmoid colon removed with a cold snare. The scope was retroflexed in the rectum and no other abnormalities were seen. Findings: A 3 mm polyp in the transverse colon and a 5 mm polyp in the sigmoid colon. EBL: 5 mL Scope withdrawal time: 15 minutes Sedation minutes: 43 minutes Post-procedure Disposition: PACU
[2023-03-11 17:02] VITALS: BP 117/66; PULSE 59; RESP 15; TEMP 36.3; O2SAT 96
[2023-03-11 17:05] VITALS: BP 105/55; PULSE 69; RESP 19; O2SAT 96
[2023-03-11 17:10] VITALS: BP 116/61; PULSE 67; RESP 20; O2SAT 97
[2023-03-11 17:12] VITALS: BP 123/66; PULSE 64; RESP 20; TEMP 36.3; O2SAT 98
== END 2023-03-11 17:49 | disposition home or self-care (01) ==
PROVIDERS: Family Provider Naturopath; PCP Family Medicine; Referring Provider Surgery; Visit Provider Surgery
PROC: 0DJ08ZZ Inspection of Upper Intestinal Tract, Via Natural or Artificial Opening Endoscopic (ICD-10-PCS; CPT 43235; principal; 2023-03-11 14:30)
PROC: 0DJD8ZZ Inspection of Lower Intestinal Tract, Via Natural or Artificial Opening Endoscopic (ICD-10-PCS; CPT 45378; 2023-03-11 14:30)
DX: Z12.11 Encounter for screening for malignant neoplasm of colon (principal); Z86.010 Personal history of colon polyps; R13.12 Dysphagia, oropharyngeal phase; K29.50 Unspecified chronic gastritis without bleeding; D12.3 Benign neoplasm of transverse colon
CPT/HCPCS: 45385; 45380; 43239; J2704

== ENCOUNTER → 2023-03-12 07:41 | Outpatient (CLI) | payer MEDICARE, OTHER, SELFPAY ==
[2021-07-29 11:57] VITALS: BMI 27.1
[2023-03-12 08:10] LABS: Hematocrit 40.9 % (36-46); Hemoglobin 14.3 g/dL (12.0-16.0); Mean Corpuscular Hemoglobin 32.1 PG (26-34); Mean Corpuscular Volume 91.7 fL (80-100); Platelet Count 215 X10^3/uL (150-400); Red Blood Cell Count 4.46 X10^6/uL (4.0-5.2); Red Cell Distribution Width 13.6 % (11.6-14.8); White Blood Cell Count 6.6 X10^3/uL (4.5-11.0)
[2023-03-12 08:22] LABS: Alanine Aminotransferase 26 IU/L (<35); Albumin Globulin Ratio 1.8 (1.0-2.8); Alkaline Phosphatase 82 U/L (38-126); Aspartate Aminotransferase 23 IU/L (14-36); BUN Creatinine Ratio 18.8 (6-22); Bilirubin Total 0.6 mg/dL (0.2-1.3); Blood Urea Nitrogen 13 mg/dL (7-17); Calcium 9.1 mg/dL (8.4-10.2); Carbon Dioxide 30 mmol/L (22-32); Chloride 102 mmol/L (98-107); Cholesterol 149 mg/dL (140-199); Estimated Glomerular Filt Rate > 60 mL/min (>60); Globulin 2.2 g/dL (1.7-4.1); Glucose 120 mg/dL (80-110); HDL Cholesterol 52 mg/dL (40-60); HEMOLYSIS < 15 (0-50); LDL Cholesterol Calculated 80 mg/dL (<100); Potassium 4.1 mmol/L (3.4-5.1); Sodium 138 mmol/L (137-145); Total Protein 6.2 g/dL (6.3-8.2); Triglycerides 84 mg/dL (35-150)
[2023-03-12 08:26] LABS: High Sensitivity CRP - Cardiac 2.9 mg/L (1.0-3.0)
[2023-03-13 05:29] LABS: Labcorp Hemoglobin (Hb) A1c 5.6 % (4.8-5.6)
== END ==
PROVIDERS: Family Provider Naturopath; PCP Family Medicine; Referring Provider Family Medicine; Visit Provider Family Medicine
DX: E28.2 Polycystic ovarian syndrome (principal); E78.2 Mixed hyperlipidemia; R73.03 Prediabetes
CPT/HCPCS: 36415; 80053; 80061; 83036; 85027; 86140

== ENCOUNTER → 2023-08-06 08:02 | Outpatient (CLI) | payer MEDICARE, OTHER, SELFPAY ==
[2021-07-29 11:57] VITALS: BMI 27.1
[2023-08-06 09:27] LABS: Cholesterol 168 mg/dL (140-199); HDL Cholesterol 47 mg/dL (40-60); LDL Cholesterol Calculated 94 mg/dL (<100); Triglycerides 136 mg/dL (35-150)
[2023-08-06 09:30] LABS: Hemoglobin A1C% w Est Avg Glu 5.8 % (4.0-6.0)
[2023-08-06 09:33] LABS: High Sensitivity CRP - Cardiac 1.8 mg/L (1.0-3.0)
[2023-08-10 08:14] LABS: Cholesterol, Total 174 mg/dL (100-199); HDL-Cholesterol 53 mg/dL (>39); HDL-Particle (Total) 33.4 umol/L (>=30.5); LDL Particle 1375 nmol/L (<1000); LDL Size 20.9 nm (>20.5); LDL-Cholsterol 98 mg/dL (0-99); LP-IR Score 54 (<=45); Small LDL- Particle 580 nmol/L (<=527); Triglycerides 133 mg/dL (0-149)
== END ==
PROVIDERS: Family Provider Naturopath; PCP Family Medicine; Referring Provider Family Medicine; Visit Provider Family Medicine
DX: E78.5 Hyperlipidemia, unspecified (principal); Z82.49 Family history of ischemic heart disease and other diseases of the circulatory system; R41.89 Other symptoms and signs involving cognitive functions and awareness
CPT/HCPCS: 36415; 80061; 83036; 83704; 86140

== ENCOUNTER 2023-10-31 15:13 | Emergency (ER) | payer MEDICARE, OTHER, SELFPAY ==
[2021-07-29 11:57] VITALS: BMI 27.1
[2023-10-31 15:28] VITALS: BP 157/72; PULSE 85; RESP 20; TEMP 36.8; O2SAT 96; BMI 25.8
--- NOTE | 2023-10-31 15:40 | DI.RAD.S_ITS ---
PROCEDURE: XR CHEST 2V INDICATIONS: PERSISTENT PRODUCTIVE COUGH X3 WKS TECHNIQUE: 2 views of the chest were acquired. COMPARISON: [facility], , XR CHEST 2V, 06/24/2020, 18:15. FINDINGS: Surgical changes and devices: None. Lungs and pleura: Lungs are clear. No pleural effusions or pneumothorax. Mediastinum: Mediastinal contours are normal. Heart size is normal. Bones and chest wall: No suspicious bony abnormalities. Soft tissues appear unremarkable. IMPRESSION: No acute cardiopulmonary abnormality is seen. Approved by: Deangelo Santoyo M.D. on 10/31/2023 at 15:24
[2023-10-31 15:44] VITALS: PULSE 91; O2SAT 98
[2023-10-31 15:47] VITALS: BP 161/73; PULSE 77; O2SAT 94
[2023-10-31 15:55] LABS: Add Manual Diff / Slide Review NO; Basophils Absolute Auto 0 /uL (0-100); Basophils Percent Auto 0.6 % (0-2); Eosinophils Absolute Auto 400 /uL (0-450); Eosinophils Percent Auto 5.7 % (2-4); Hematocrit 43.3 % (36-46); Hemoglobin 15.2 g/dL (12.0-16.0); Lymphocytes Absolute Auto 1900 /uL (1100-4500); Lymphocytes Percent Auto 26.8 % (25-40); Mean Corpuscular HGB Conc 35.1 % (30-36); Mean Corpuscular Hemoglobin 32.5 PG (26-34); Mean Corpuscular Volume 92.8 fL (80-100); Monocytes Absolute Auto 700 /uL (0-900); Monocytes Percent Auto 9.9 % (3-14); Neutrophils Absolute Auto 4100 /uL (1500-7000); Platelet Count 280 X10^3/uL (150-400); Red Blood Cell Count 4.66 X10^6/uL (4.0-5.2); Red Cell Distribution Width 13.2 % (11.6-14.8); White Blood Cell Count 7.2 X10^3/uL (4.5-11.0)
[2023-10-31 16:00] VITALS: PULSE 92; O2SAT 96
--- NOTE | 2023-10-31 16:05 | ED.URI ---
HPI - URI/Sore Throat General Chief Complaint: Upper Respiratory Symptoms Stated Complaint: SOB/Cough Time Seen by Provider: 10/31/23 15:40 Source: patient Mode of arrival: Ambulatory History of Present Illness HPI Narrative: 72-YEAR-OLD FEMALE PRESENTS WITH PERSISTENT COUGH SINCE . PATIENT INITIALLY WAS GETTING BETTER BUT THEN HAD WORSENING. SHE CALLED HER PRIMARY CARE PHYSICIAN ON 10/27 WHO PRESCRIBED HER ANTIBIOTICS, BUT SHE IS NOT GETTING ANY BETTER AND IS CONCERNED THAT THINGS MAY BE GETTING WORSE. SHE HAS PERSISTENT, AGGRAVATING COUGH THAT IS CAUSING HER TO NOT BE ABLE TO SLEEP AT NIGHT. Related Data Home Medications Medication Instructions Recorded Confirmed naphazoline 0.13837 %-pheniramine 1 drp EYE-BOTH PRN PRN allergies 05/05/18 07/02/23 0.315 % eye drops (Opcon-A) omega 0-lus-rpk-fish oil 1,000 mg 1 tab PO DAILY 06/03/18 07/02/23 (120 mg-180 mg) capsule (Fish Oil) Respironics Dreamstation CPAP #1 ea 05/08/19 07/02/23 calcium carbonate [Tums] PO 07/31/22 07/02/23 coenzyme Q10 100 mg PO DAILY 07/31/22 07/02/23 gabapentin 300 mg capsule 300 mg PO DAILY 07/31/22 07/02/23 multivitamin 1 tab PO DAILY 07/31/22 07/02/23 vitamin D3-vitamin K2 125 mcg PO DAILY 07/31/22 07/02/23 Previous Rx's Medication Instructions Recorded home nebulizer unit #1 ea 06/26/20 estradiol 0.01% (0.1 mg/gram) 1 g vaginal 2XW #42.5 grams 12/14/22 vaginal cream (Estrace) acyclovir 400 mg tablet 400 mg PO DAILY #90 tabs 02/26/23 albuterol sulfate 90 mcg/actuation 2 puff inhalation QID PRN 06/08/23 aerosol inhaler (Ventolin HFA) shortness of breath or wheezing #6.7 grams ipratropium 0.5 mg-albuterol 3 mg 3 ml inhalation Q6H PRN shortness 06/15/23 (2.5 mg base)/3 mL nebulization of breath or wheezing #90 mL soln metformin 500 mg tablet 500 mg PO BID #180 tabs 07/10/23 rosuvastatin 5 mg tablet See Rx Instructions .Route 09/13/23 .COMPLEX #90 tabs zolpidem 10 mg tablet See Rx Instructions PO BEDTIME PRN 09/20/23 sleep #30 tabs ferrous sulfate 325 mg (65 mg 325 mg PO .COMPLEX #30 tabs 10/05/23 iron) tablet (Feosol) progesterone micronized 200 mg 200 mg PO BEDTIME #90 caps 10/18/23 capsule (Prometrium) amoxicillin 500 mg-potassium 1 tab PO BID #10 tabs 10/27/23 clavulanate 125 mg tablet azithromycin 250 mg tablet See Rx Instructions PO .COMPLEX #4 10/27/23 tabs benzonatate 100 mg capsule 100 mg PO BID-TID PRN cough #30 10/31/23 caps hydrocodone-homatropine 5 mg-1.5 5 ml PO Q4-6H PRN cough #100 mL 10/31/23 mg/5 mL (5 mL) oral syrup (Hycodan) estradiol 0.05 mg/24 hr semiweekly 1 patch transdermal 2XW #24 ea 11/01/23 transdermal patch Allergies Allergy/AdvReac Type Severity Reaction Status Date / Time Sulfa (Sulfonamide Allergy Severe Hives Verified 07/02/23 09:07 Antibiotics) [SULFA (SULFONAMIDE ANTIBIOTICS)] cat dander Allergy Sneezing Verified 10/31/23 15:36 dog dander Allergy Sneezing Verified 10/31/23 15:36 Review of Systems Review of Systems Narrative: Negative except as noted above Patient History Medical History Thrush Piriformis muscle pain Thoracic region somatic dysfunction Chronic thoracic back pain Short leg syndrome, right, acquired Chronic pain of right knee Chronic pain of left knee Somatic dysfunction of lower extremity Segmental and somatic dysfunction of abdomen and other regions Sacral region somatic dysfunction Pelvic somatic dysfunction Lumbar region somatic dysfunction Chronic low back pain without sciatica PCOS (polycystic ovarian syndrome) Right lumbar radiculopathy Trochanteric bursitis of left hip Hammer toe of left foot Internal hemorrhoids without complication Diverticulosis of colon without diverticulitis Insomnia, persistent Mixed hyperlipidemia (11/04/16) Left ventricular diastolic dysfunction with preserved systolic function (11/11/15) Body mass index (BMI) of 25.0 to 29.9 (11/11/15) Obstructive sleep apnea syndrome in adult (2004) Herpes simplex of female genitalia (08/02/15) Bipolar disorder in full remission (08/02/15) Mild intermittent asthma without complication (09/27/15) Surgical History History of lumbar fusion (~03/2017) Status post right hip replacement (~06/03/18) S/P cervical spinal fusion Status post hysterectomy Status post rotator cuff repair History of tonsillectomy Family History Brother Diabetes mellitus High cholesterol Mental health problem Brother Age: 69 Heart disease High cholesterol Heart attack Father Heart disease Hypertension High cholesterol Mental health problem Grandfather Heart disease Grandmother Diabetes mellitus Heart disease High cholesterol Mother Cancer Diabetes mellitus Heart disease Hypertension High cholesterol Grandfather Heart disease Hypertension Grandmother Cancer Sister Age: 67 Hypertension High cholesterol Social History household members: spouse Smoking Status: Never smoker alcohol intake: former Smoking Status: Never smoker alcohol intake frequency: 0-2 drinks per day Substance Use Type: does not use Exam Initial Vital Signs Initial Vital Signs: Vital Signs Temperature 98.2 F 10/31/23 15:28 Pulse Rate 85 10/31/23 15:28 Respiratory Rate 20 10/31/23 15:28 Blood Pressure 157/72 H 10/31/23 15:28 Pulse Oximetry 96 10/31/23 15:28 Oxygen Delivery Method Room Air 10/31/23 15:28 Const: Awake, alert, no acute distress, nontoxic appearing Cardiac: regular rate, regular rhythm RESP: unlabored, clear bilaterally, no wheezing, active cough GI: Atraumatic, soft, nontender, nondistended, no rebound, no guarding MSK: Atraumatic, full range of motion, pulses equal Skin: Warm, Dry, intact, no rashes Neuro: AO x3, CN II-XII grossly intact, moves all extremities Psych: affect normal, mood normal, not suicidal, not homicidal Course Orders Ordered: Discontinued Medications Dexamethasone (Dexamethasone 10 Mg/Ml Vial) 10 mg PO NOW ONE Stop: 10/31/23 16:39 Last Admin: 10/31/23 16:51 Dose: 10 mg Documented By: RB Vital Signs Vital signs: Vital Signs - 8 hr 10/31/23 15:28 10/31/23 15:44 Temperature 98.2 F Pulse Rate 85 91 H Respiratory Rate 20 Blood Pressure 157/72 H Pulse Oximetry 96 98 Oxygen Delivery Method Room Air MDM - URI/Sore Throat Lab Data 10/31/23 15:50 10/31/23 15:50 Labs: Lab Results 10/31/23 Range/Units 15:50 WBC 7.2 (4.5-11.0) X10^3/uL RBC 4.66 (4.0-5.2) X10^6/uL Hgb 15.2 (12.0-16.0) g/dL Hct 43.3 (36-46) % MCV 92.8 (80-100) fL MCH 32.5 (26-34) PG MCHC 35.1 (30-36) % RDW 13.2 (11.6-14.8) % Plt Count 280 (150-400) X10^3/uL Neut % (Auto) 57.0 (50-75) % Lymph % (Auto) 26.8 (25-40) % [place] % (Auto) 9.9 (3-14) % Eos % (Auto) 5.7 H (2-4) % Baso % (Auto) 0.6 (0-2) % Neut # (Auto) 4100 (7090-8951) /uL Lymph # (Auto) 1900 (5815-8937) /uL [place] # (Auto) 700 (0-900) /uL Eos # (Auto) 400 (0-450) /uL Baso # (Auto) 0 (0-100) /uL Sodium 138 (137-145) mmol/L Potassium 3.7 (3.4-5.1) mmol/L Chloride 103 (98-107) mmol/L Carbon Dioxide 24 (22-32) mmol/L BUN 12 (7-17) mg/dL Creatinine 0.67 (0.52-1.04) mg/dL Estimated GFR > 60 (>60) mL/min BUN/Creatinine Ratio 17.9 (6-22) Glucose 112 H (80-110) mg/dL Calcium 9.8 (8.4-10.2) mg/dL Total Bilirubin 0.5 (0.2-1.3) mg/dL AST 31 (14-36) IU/L ALT 26 (<35) IU/L Alkaline Phosphatase 139 H (38-126) U/L Total Protein 7.9 (6.3-8.2) g/dL Albumin 4.6 (3.5-5.0) g/dL Globulin 3.3 (1.7-4.1) g/dL Albumin/Globulin Ratio 1.4 (1.0-2.8) Urine Dip Bedside Urine Glucose Negative Bedside Urine Bilirubin - Negative Bedside Urine Ketone - Negative Urine Specific [place] 1.005 Bedside Urine Occult Blood - Negative Bedside Urine pH 6.5 Bedside Urine Protein - Negative Bedside Urine Urobilinogen - Negative Bedside Urine Nitrite - Negative Bedside Urine Leukocytes - Negative Esterase MDM Narrative Medical decision making narrative: Nontoxic patient presenting with persistent cough despite taking antibiotics. She is afraid that she may have worsening pneumonia and that ?something will happen to me in my sleep because of this cough?. Vital signs are stable, patient does have active coughing every time she takes a deep breath in the emergency department, but lungs are otherwise clear to auscultation. Saturating well on room air. Laboratory work is reviewed, no leukocytosis, no left shift, his chemistries are normal. Chest x-ray two view shows no evidence of pneumonia. Patient likely has post viral bronchitis. Patient given a dose of Decadron, cough medication sent to pharmacy of choice. Patient does take Ambien nightly, she was counseled that she should not take Hycodan prescribed with this Ambien as this can cause confusion and increased risk of falls. Discharge Plan Departure Patient Disposition: Home Clinical Impression: Bronchitis Instructions: DI for Acute Bronchitis Activity Restrictions/Additional Instructions: Your chest x-ray did not show any evidence of pneumonia. Your laboratory work was normal. You are being discharged on 2 different cough medications. Try the Tessalon Perles 1st, if these do not work then you may try the Hycodan. Do not take this medication with alcohol or your prescribed Ambien. This may cause drowsiness so do not operate heavy machinery such as your car when taking this medication. Please follow up with your primary care physician. Prescriptions: New benzonatate 100 mg capsule 100 mg PO BID-TID PRN (Reason: cough) Qty: 30 0RF hydrocodone-homatropine [Hycodan] 5-1.5 mg/5 mL (5 mL) syrup 5 ml PO Q4-6H PRN (Reason: cough) Qty: 100 0RF No Action ipratropium-albuterol 0.5 mg-3 mg(2.5 mg base)/3 mL solution for nebulization 3 ml INHALATION Q6H PRN (Reason: shortness of breath or wheezing) Qty: 90 3RF metformin 500 mg tablet 500 mg PO BID Qty: 180 0RF rosuvastatin 5 mg tablet See Rx Instructions .ROUTE .COMPLEX Qty: 90 3RF Dose Instruction: TAKE ONE TABLET BY MOUTH ONE TIME DAILY Rx Instructions: TAKE ONE TABLET BY MOUTH ONE TIME DAILY ferrous sulfate [Feosol] 325 mg (65 mg iron) tablet 325 mg PO .COMPLEX Qty: 30 0RF Rx Instructions: 325 mg orally twice a week; progesterone micronized [Prometrium] 200 mg capsule 200 mg PO BEDTIME Qty: 90 1RF estradiol 0.05 mg/24 hr patch semiweekly 1 patch transdermal 2XW Qty: 24 0RF Rx Instructions: apply 1 patch for 3 days alternating with 1 patch for 4 days each week for 3 wks per 4-wk cycle (DME) home nebulizer unit Qty: 1 0RF Rx Instructions: As directed multivitamin Tablet 1 tab PO DAILY gabapentin 300 mg capsule 300 mg PO DAILY Patient Comments: PT ONLY TAKES 1 PO DAILY. HAS A LOT ON HAND CURRENTLY. Rx Instructions: TAKE ONE CAPSULE BY MOUTH THREE TIMES DAILY calcium carbonate [Tums] PO coenzyme Q10 100 mg PO DAILY vitamin D3-vitamin K2 125 mcg PO DAILY acyclovir 400 mg tablet 400 mg PO DAILY Qty: 90 3RF azithromycin 250 mg tablet See Rx Instructions PO .COMPLEX Qty: 4 0RF Rx Instructions: For 250 mg dose pack: take 500 mg today (day 1), then 250 mg for 2 days (days 2-3) PO amoxicillin-pot clavulanate 500-125 mg tablet 1 tab PO BID Qty: 10 1RF estradiol [Estrace] 0.01 % (0.1 mg/gram) cream 1 g vaginal 2XW Qty: 42.5 2RF albuterol sulfate [Ventolin HFA] 90 mcg/actuation HFA aerosol inhaler 2 puff inhalation QID PRN (Reason: shortness of breath or wheezing) Qty: 6.7 0RF zolpidem 10 mg tablet See Rx Instructions PO BEDTIME PRN (Reason: sleep) Qty: 30 2RF Rx Instructions: 1/2-1 tab at bedtime as needed; caution regarding sedation and possible fall risk Opcon-A 0.79913-1.315 % Drops 1 drp EYE-BOTH PRN PRN (Reason: allergies) omega 9-qdf-myx-fish oil [Fish Oil] 1,000 mg (120 mg-180 mg) Capsule 1 tab PO DAILY (DME) Respironics Dreamstation CPAP Qty: 1 Dose Instruction: As directed Patient Comments: Pressure: 8-12 cmH2O DME: [facility] Rx Instructions: As directed Referrals: Kerri Brown DO [Primary Care Provider] - Stand Alone Forms: Patient Portal/API
[2023-10-31 16:07] LABS: Alanine Aminotransferase 26 IU/L (<35); Albumin 4.6 g/dL (3.5-5.0); Albumin Globulin Ratio 1.4 (1.0-2.8); Alkaline Phosphatase 139 U/L (38-126); Aspartate Aminotransferase 31 IU/L (14-36); BUN Creatinine Ratio 17.9 (6-22); Bilirubin Total 0.5 mg/dL (0.2-1.3); Blood Urea Nitrogen 12 mg/dL (7-17); Calcium 9.8 mg/dL (8.4-10.2); Carbon Dioxide 24 mmol/L (22-32); Chloride 103 mmol/L (98-107); Estimated Glomerular Filt Rate > 60 mL/min (>60); Globulin 3.3 g/dL (1.7-4.1); Glucose 112 mg/dL (80-110); HEMOLYSIS 21 (0-50); Potassium 3.7 mmol/L (3.4-5.1); Sodium 138 mmol/L (137-145); Total Protein 7.9 g/dL (6.3-8.2)
[2023-10-31 16:30] VITALS: PULSE 74; RESP 22; O2SAT 95
[2023-10-31] MEDS: DEXAMETHASONE 10 MG/ML VIAL PO (16:51)
[2023-10-31 16:56] VITALS: BP 162/76
== END 2023-10-31 16:56 | disposition home or self-care (01) ==
PROVIDERS: Emergency Provider Emergency Medicine; Family Provider Naturopath; PCP Family Medicine
DX: J40 Bronchitis, not specified as acute or chronic (principal)
CPT/HCPCS: 36415; 71046; 80053; 81003; 85025; 99283; 99284; J1100

== ENCOUNTER → 2023-12-07 07:44 | Outpatient (CLI) | payer MEDICARE, OTHER, SELFPAY ==
[2021-07-29 11:57] VITALS: BMI 27.1
--- NOTE | 2023-12-07 | DI.ECHO.S_ITS ---
[place] [facility]---------+ [facility] +---------+ : : [address] : : : : [id number] : : : : Phone: [phone]---------+ Echocardiogram Report + + :Name: KAYLEEN MCGREGOR Study Date: 12/07/2023 Height: 67 in : :[facility] ReadingLocation: Weight: 167 lb : : Gender: Female BSA: 1.9 m2 : :: 1950 Age: 73 yrs BP: 117/71 mmHg: :Reason For Study: DYSPNEA : :Ordering Physician: ELIO, : :KYA Performed By: Jessica Higgins : :Referring: KYA BALLARD : + + Interpretation Summary The left ventricle is normal in size and wall thickness. The left ventricular ejection fraction is normal. The ejection fraction is estimated to be 60-65%. The right ventricle is normal in size and function. No significant valvular pathology seen. The IVC is of normal diameter and collapses greater than 50% with a sniff. This suggests a low right atrial pressure of 3 mm Hg. Procedure: A two-dimensional transthoracic echocardiogram with color flow and Doppler was performed. The study quality was technically adequate. There is no prior echocardiogram noted for this patient. The patient was in sinus bradycardia with heart rates between 55-62 bpm during the exam. Left Ventricle: The left ventricle is normal in size and wall thickness. There is no thrombus. A false chord is noted (normal variant). The ejection fraction is estimated to be 60-65%. The left ventricular ejection fraction is normal. There are no focal wall motion abnormalities. MV E/A: 1.0 Med Peak E' Tony: 5.5 cm/sec E/E' med: 15.3. Right Ventricle: The right ventricle is normal in size and function. Atria: The left atrial size is normal. Right atrial size is normal. There is no Doppler evidence for an interatrial shunt. Mitral Valve: There is mild mitral annular calcification. There is mild mitral regurgitation. Aortic Valve: There is mild aortic valve sclerosis. The aortic valve is trileaflet. The aortic valve opens well. There is no aortic valve stenosis. There is trace aortic regurgitation. Tricuspid Valve: The tricuspid valve is normal in structure and function. There is trace tricuspid regurgitation. The right ventricular systolic pressure is estimated to be at least 23 mmHg based on an estimated right atrial pressure of 3 mm Hg. Pulmonic Valve: The pulmonic valve leaflets are thin and pliable; valve motion is normal. There is trace pulmonic regurgitation. Great Vessels: The aortic root is normal size. The dimensions of the ascending aorta are normal. The IVC is of normal diameter and collapses greater than 50% with a sniff. This suggests a low right atrial pressure of 3 mm Hg. Pericardium/ Pleura There is no pericardial effusion. There is no pleural effusion. MMode/2D Measurements & Calculations LVIDd: 4.3 cm LVOT diam: 1.9 cm LVIDs: 2.9 cm Ao root diam: 2.7 cm FS: 33.7 % asc Aorta Diam: 3.0 cm EPSS: 0.42 cm Ao Arch Diam (Prox Trans): 2.8 cm IVSd: 0.75 cm LVPWd: 0.87 cm LV hale. diameter/BSA (cm/m^2): 2.3 LV sys. diameter/BSA (cm/m^2): 1.5 LA A2 area: 17.4 cm2 RA long axis: 4.6 cm LA A4 area: 13.7 cm2 RA area: 12.7 cm2 LA length (vol): 4.2 cm RA vol: 29.6 ml LA vol: 47.9 ml RA : 15.8 ml/m2 LA vol index: 25.6 ml/m2 IVC diam: 1.6 cm RVD1 (basal): 3.9 cm TAPSE: 1.8 cm Doppler Measurements & Calculations Ao V2 max: 128.8 cm/sec LVOT Max Tony: 91.3 cm/sec Ao V2 mean: 88.1 cm/sec LV V1 max P.3 mmHg Ao max P.6 mmHg LV V1 VTI: 21.3 cm Ao mean P.4 mmHg ASHVIN(I,D): 2.1 cm2 Ao V2 VTI: 28.8 cm ASHVIN(V,D): 2.0 cm2 sev ratio: 0.74 ASHVIN indexed to BSA (cm^2/m^2): 1.1 MV E max tony: 84.9 cm/sec TR max tony: 220.4 cm/sec MV A max tony: 83.6 cm/sec TR max P.4 mmHg MV E/A: 1.0 PA V2 max: 89.7 cm/sec Med Peak E' Tony: 5.5 cm/sec PA V2 mean: 59.8 cm/sec E/E' med: 15.3 PA mean P.6 mmHg Lat Peak E' Tony: 7.6 cm/sec PA pr(Accel): 29.3 mmHg E/E' lat: 11.2 E/e' average: 13.3 MV dec time: 0.23 sec SV(LVOT): 59.2 ml Reading Physician:04:04 PM
--- NOTE | 2023-12-08 01:24 | DI.NM.S_ITS ---
DATE OF SERVICE: 12/07/2023 PROCEDURE PERFORMED: Exercise treadmill stress and rest myocardial perfusion imaging with gating to assess ejection fraction and regional wall motion. ORDERING PROVIDER: Viik Betancourt MD. INDICATIONS: The patient is a 73-year-old female with a strong family history of coronary disease, exertional dyspnea, and anxiety. CARDIAC STRESS: The patient was able to exercise for 7 minutes and 26 seconds on a standard Urddy protocol suggesting good exercise capacity with an RUPINDER of -14%, achieving 10.1 METS. She had a normal heart rate and blood pressure response to exercise, achieving a maximum heart rate of 130 BPM (88% of her predicted maximum). She had moderate dyspnea with exercise but no chest discomfort or other anginal symptoms. Her resting ECG showed sinus rhythm with normal ST segments. There were no significant ST-segment shifts or arrhythmias with stress except for occasional isolated PVCs and PACs. At 6 minutes and 20 seconds of exercise, at a heart rate of 125 BPM, 25.6 millicuries of technetium-99m Myoview was injected and she was imaged 15 minutes later using a gated SPECT acquisition protocol. Earlier in the day while at rest, she had been injected with 12.3 mCi of technetium-99m Myoview and was imaged 15 minutes later, again using a gated SPECT acquisition protocol. FINDINGS: 1. Raw data. There is fair myocardial tracer uptake. There is some subdiaphragmatic tracer activity adjacent to the inferolateral wall on the resting images. The lung/heart ratio is normal at 0.39 with a normal TID ratio 0.90. 2. Quantitative gated SPECT: Post-stress ejection fraction is estimated at 86% without any focal wall motion abnormality. The resting ejection fraction is 73% with a normal resting end-diastolic volume of 82 mL. 3. Myocardial perfusion imaging: Post-stress supine images show a normal myocardial perfusion pattern without any perfusion defects, supported a normal perfusion pattern on the prone images. The resting images are somewhat affected by the inferior subdiaphragmatic tracer activity but show no clear areas of improvement. IMPRESSION: 1. Normal myocardial perfusion study. 2. No perfusion defects to suggest myocardial ischemia or previous myocardial infarction. 3. Brisk left ventricular systolic function without any focal wall motion abnormality. 4. Good exercise capacity without angina or ECG evidence of ischemia. She had occasional isolated PACs and PVCs but no concerning arrhythmias. 5. Compared with her previous myocardial perfusion study on 03/18/2018, an identical perfusion pattern was seen, again with normal perfusion. Her previous ejection fraction was 79% with an end-diastolic volume of 73 mL, suggesting no significant change since the previous exam. Ledy Kimble - TENNILLE/ifrah/MARCE doc#: [id number]/job#: [id number] dd: 12/07/2023 16:42:00 dt: 12/08/2023 01:12:00 DICTATING MD/COPIES TO: Jens Sofia MD; Viki Betancourt MD COPIES MNE: KELLI;
== END ==
LOC: NUCM 07:46
PROVIDERS: Family Provider Naturopath; PCP Family Medicine; Referring Provider Internal Medicine Cardiovascular Disease; Visit Provider Internal Medicine Cardiovascular Disease
DX: I08.0 Rheumatic disorders of both mitral and aortic valves (principal); R06.09 Other forms of dyspnea; F41.9 Anxiety disorder, unspecified; Z82.49 Family history of ischemic heart disease and other diseases of the circulatory system
CPT/HCPCS: 78452; 93017; 93306; A9502

== ENCOUNTER → 2023-12-27 08:31 | Outpatient (CLI) | payer MEDICARE, OTHER, SELFPAY ==
[2021-07-29 11:57] VITALS: BMI 27.1
[2023-12-27 10:00] LABS: Magnesium 2.2 mg/dL (1.6-2.3)
[2023-12-30 08:10] LABS: Cholesterol, Total 150 mg/dL (100-199); HDL-Cholesterol 58 mg/dL (>39); HDL-Particle (Total) 36.1 umol/L (>=30.5); Historical Reading Comment: (.); LDL Particle 873 nmol/L (<1000); LDL Size 20.3 nm (>20.5); LDL-Cholsterol 73 mg/dL (0-99); LP-IR Score 29 (<=45); Small LDL- Particle 435 nmol/L (<=527); Triglycerides 102 mg/dL (0-149)
== END ==
PROVIDERS: Family Provider Naturopath; PCP Family Medicine; Referring Provider Internal Medicine Cardiovascular Disease; Visit Provider Internal Medicine Cardiovascular Disease
DX: I49.1 Atrial premature depolarization (principal); E78.2 Mixed hyperlipidemia; I49.3 Ventricular premature depolarization
CPT/HCPCS: 36415; 80061; 83704; 83735

== ENCOUNTER → 2024-04-11 08:27 | Outpatient (CLI) | payer MEDICARE, OTHER, SELFPAY ==
[2021-07-29 11:57] VITALS: BMI 27.1
--- NOTE | 2024-04-11 08:28 | DI.MG.S_ITS ---
BILATERAL DIGITAL SCREENING MAMMOGRAM 3D/2D WITH CAD: 04/11/2024 CLINICAL: Routine screening. Family history of breast cancer. Comparison is made to exams dated: 02/26/2023 mammogram, 02/19/2022 mammogram, and 11/08/2020 mammogram - [facility]. Both breasts are almost entirely fatty (category a/<25% glandular tissue). Current study was also evaluated with a Computer Aided Detection (CAD) system. No significant masses, calcifications, or other findings are seen in either breast. There has been no significant interval change. IMPRESSION: NEGATIVE There is no mammographic evidence of malignancy. A 1 year screening mammogram is recommended. Based on the Tyrer Cuzick model (a risk assessment model) the patient's lifetime risk is 4.6% and her 10 year risk is 3.7%. According to the ACR, ACS, and NCCN guidelines, an annual breast MRI exam along with mammogram is recommended if the patient's lifetime risk is 20% or greater. This exam was interpreted at Station ID: [id number]. NOTE: For mammograms, a report in lay terms will be sent to the patient. Approximately 15% of breast malignancies will not be visualized mammographically. In the management of a palpable breast mass, a negative mammogram must not discourage biopsy of a clinically suspicious lesion. Electronically Signed By: Yumiko gaines/vaughn:04/11/2024 09:22:29 letter sent: Normal Exam ACR BI-RADS Category 1: Negative [id number]
== END ==
LOC: MAMMO 08:28
PROVIDERS: Family Provider Naturopath; PCP Family Medicine; Referring Provider Family Medicine; Visit Provider Family Medicine
DX: Z12.31 Encounter for screening mammogram for malignant neoplasm of breast (principal); Z80.3 Family history of malignant neoplasm of breast; R92.313 Mammographic fatty tissue density, bilateral breasts
CPT/HCPCS: 77063; 77067

== ENCOUNTER → 2024-06-28 07:28 | Outpatient (CLI) | payer MEDICARE, OTHER, SELFPAY ==
[2021-07-29 11:57] VITALS: BMI 27.1
[2024-06-28 08:36] LABS: Hemoglobin A1C% w Est Avg Glu 5.2 % (4.0-6.0)
[2024-06-28 08:44] LABS: High Sensitivity CRP - Cardiac 0.6 mg/L (1.0-3.0)
[2024-06-30 13:36] LABS: Cholesterol, Total 136 mg/dL (100-199); HDL-Cholesterol 56 mg/dL (>39); HDL-Particle (Total) 37.5 umol/L (>=30.5); Historical Reading Comment: (.); LDL Particle 958 nmol/L (<1000); LDL Size 20.1 nm (>20.5); LDL-Cholsterol 65 mg/dL (0-99); LP-IR Score 41 (<=45); Small LDL- Particle 656 nmol/L (<=527); Triglycerides 76 mg/dL (0-149)
== END ==
PROVIDERS: Family Provider Naturopath; PCP Family Medicine; Referring Provider Family Medicine; Visit Provider Family Medicine
DX: R73.9 Hyperglycemia, unspecified (principal); E78.00 Pure hypercholesterolemia, unspecified
CPT/HCPCS: 36415; 80061; 83036; 83704; 86140

== ENCOUNTER → 2024-06-30 11:15 | Outpatient (CLI) | payer MEDICARE, OTHER, SELFPAY ==
[2021-07-29 11:57] VITALS: BMI 27.1
[2024-06-30 12:37] LABS: Appearance Urine UA CLEAR; Bilirubin Urine UA NEGATIVE (NEGATIVE); Color Urine UA YELLOW; Glucose Urine UA NEGATIVE (Negative); Ketones Urine UA NEGATIVE (NEGATIVE); Leukocyte Esterase Urine UA NEGATIVE (NEGATIVE); Nitrite Urine UA NEGATIVE (Negative); Occult Blood Urine UA NEGATIVE (Negative); Protein Urine UA NEGATIVE (Negative); Urobilinogen Urine UA 0.2 E.U./dL (0.2)
[2024-06-30 13:14] LABS: Bacteria Urine Few (2-10); Culture Indicated Urine Cult Not Indicated; RBC Urine None Seen (0-5/HPF); Squamous Epithelial Cell Urine 1-5 /HPF (0-5/HPF); Urine Volume 10mL (spun); WBC Urine None Seen (0-5/HPF)
== END ==
PROVIDERS: Family Provider Naturopath; PCP Family Medicine; Referring Provider Family Medicine; Visit Provider Family Medicine
DX: R30.0 Dysuria (principal); E78.5 Hyperlipidemia, unspecified; Z82.49 Family history of ischemic heart disease and other diseases of the circulatory system
CPT/HCPCS: 81001

== ENCOUNTER → 2024-07-04 07:31 | Outpatient (CLI) | payer MEDICARE, OTHER, SELFPAY ==
[2024-06-30 14:01] VITALS: BMI 27.1
--- NOTE | 2024-07-04 07:33 | DI.US.S_ITS ---
PROCEDURE: US CAROTID DOPPLER BI INDICATIONS: HYPERLIPIDEMIA TECHNIQUE: Color and pulse Doppler interrogation was performed of both carotid systems, with image documentation and velocity measurements. COMPARISON: None. FINDINGS: Stenosis calculations are based on SRU (Society of Radiologists in Ultrasound) criteria. Right side: Brachial blood pressure: 92/59 mm Hg. Common carotid artery peak systolic velocity: 87 cm/sec. Internal carotid artery peak systolic velocity: 63 cm/sec. Internal carotid artery end diastolic velocity: 23 cm/sec. External carotid artery peak systolic velocity: 97 cm/sec. ICA/CCA peak systolic ratio: 0.8 . Suh scale imaging description: Mild plaque Percent internal carotid artery stenosis: None . Vertebral artery: Flow direction is antegrade. Left side: Brachial blood pressure: 95/58 mm Hg. Common carotid artery peak systolic velocity: 113 cm/sec. Internal carotid artery peak systolic velocity: 86 cm/sec. Internal carotid artery end diastolic velocity: 31 cm/sec. External carotid artery peak systolic velocity: 86 cm/sec. ICA/CCA peak systolic ratio: 0.8 . Suh scale imaging description: Mild plaque Percent internal carotid artery stenosis: None . Vertebral artery: Flow direction is antegrade. IMPRESSION: There is mild plaque bilaterally. There is no internal carotid artery stenosis. Dictated by: Barney Agustin M.D. on 07/04/2024 at 11:04 Approved by: Barney Agustin M.D. on 07/04/2024 at 11:10
== END ==
PROVIDERS: Family Provider Naturopath; PCP Family Medicine; Referring Provider Family Medicine; Visit Provider Family Medicine
DX: E78.5 Hyperlipidemia, unspecified (principal); Z82.49 Family history of ischemic heart disease and other diseases of the circulatory system
CPT/HCPCS: 93880

== ENCOUNTER → 2024-07-05 10:30 | Outpatient (CLI) | payer MEDICARE, OTHER, SELFPAY ==
[2024-06-30 14:01] VITALS: BMI 27.1
== END ==
PROVIDERS: Family Provider Naturopath; PCP Family Medicine; Visit Provider Family Medicine
DX: N89.8 Other specified noninflammatory disorders of vagina (principal)
CPT/HCPCS: 87480; 87510; 87660

== ENCOUNTER → 2024-09-05 08:31 | Outpatient (CLI) | payer MEDICARE, OTHER, SELFPAY ==
[2024-06-30 14:01] VITALS: BMI 27.1
[2024-09-05 10:33] LABS: Hematocrit 42.9 % (36-46); Hemoglobin 14.8 g/dL (12.0-16.0); Mean Corpuscular HGB Conc 34.4 % (30-36); Mean Corpuscular Hemoglobin 33.1 PG (26-34); Mean Corpuscular Volume 96.1 fL (80-100); Platelet Count 222 X10^3/uL (150-400); Red Blood Cell Count 4.46 X10^6/uL (4.0-5.2); Red Cell Distribution Width 13.3 % (11.6-14.8); White Blood Cell Count 6.3 X10^3/uL (4.5-11.0)
[2024-09-05 10:55] LABS: BUN Creatinine Ratio 18.1 (6-22); Blood Urea Nitrogen 17 mg/dL (7-17); Calcium 9.6 mg/dL (8.4-10.2); Carbon Dioxide 32 mmol/L (22-32); Chloride 101 mmol/L (98-107); Estimated Glomerular Filt Rate > 60 mL/min (>60); Glucose 108 mg/dL (80-110); HEMOLYSIS < 15 (0-50); Potassium 4.4 mmol/L (3.4-5.1); Sodium 134 mmol/L (137-145)
== END ==
PROVIDERS: Family Provider Naturopath; PCP Family Medicine; Referring Provider Obstetrics & Gynecology Female Pelvic Medicine and Reconstructive Surgery; Visit Provider Obstetrics & Gynecology Female Pelvic Medicine and Reconstructive Surgery
DX: Z01.818 Encounter for other preprocedural examination (principal); N99.3 Prolapse of vaginal vault after hysterectomy; N81.11 Cystocele, midline
CPT/HCPCS: 36415; 80048; 85027

== ENCOUNTER → 2025-02-12 08:31 | Outpatient (CLI) | payer MEDICARE, OTHER, SELFPAY ==
[2024-06-30 14:01] VITALS: BMI 27.1
[2025-02-12 09:46] LABS: Alanine Aminotransferase 25 IU/L (<35); Albumin Globulin Ratio 1.9 (1.0-2.8); Alkaline Phosphatase 84 U/L (38-126); Aspartate Aminotransferase 27 IU/L (14-36); BUN Creatinine Ratio 19.2 (6-22); Bilirubin Total 0.6 mg/dL (0.2-1.3); Blood Urea Nitrogen 14 mg/dL (7-17); Calcium 9.1 mg/dL (8.4-10.2); Carbon Dioxide 25 mmol/L (22-32); Chloride 105 mmol/L (98-107); Estimated Glomerular Filt Rate > 60 mL/min (>60); Globulin 2.1 g/dL (1.7-4.1); Glucose 112 mg/dL (70-99); HEMOLYSIS < 15 (0-50); Potassium 4.3 mmol/L (3.4-5.1); Sodium 136 mmol/L (137-145); Total Protein 6.1 g/dL (6.3-8.2)
[2025-02-13 05:39] LABS: CRP, High Sensitivity 0.24 mg/L (0.00-3.00)
[2025-02-13 07:36] LABS: Insulin Level Total 13.3 uIU/mL (2.6-24.9)
[2025-02-14 08:36] LABS: Cholesterol, Total 162 mg/dL (100-199); HDL-Cholesterol 57 mg/dL (>39); HDL-Particle (Total) 37.4 umol/L (>=30.5); Historical Reading Comment: (.); LDL Particle 1201 nmol/L (<1000); LDL Size 20.6 nm (>20.5); LDL-Cholsterol 88 mg/dL (0-99); LP-IR Score 54 (<=45); Small LDL- Particle 578 nmol/L (<=527); Triglycerides 89 mg/dL (0-149)
== END ==
PROVIDERS: Family Provider Naturopath; PCP Family Medicine; Referring Provider Family Medicine; Visit Provider Family Medicine
DX: E78.5 Hyperlipidemia, unspecified (principal); Z79.890 Hormone replacement therapy; Z82.49 Family history of ischemic heart disease and other diseases of the circulatory system
CPT/HCPCS: 36415; 80053; 80061; 83525; 83704; 86140

== ENCOUNTER → 2025-03-08 08:14 | Outpatient (CLI) | payer MEDICARE, OTHER, SELFPAY ==
[2024-06-30 14:01] VITALS: BMI 27.1
[2025-03-08 09:15] LABS: Hemoglobin A1C% w Est Avg Glu 5.3 % (4.0-6.0)
== END ==
PROVIDERS: Family Provider Naturopath; PCP Family Medicine; Referring Provider Family Medicine; Visit Provider Family Medicine
DX: R73.9 Hyperglycemia, unspecified (principal); R73.03 Prediabetes; E78.00 Pure hypercholesterolemia, unspecified; Z82.49 Family history of ischemic heart disease and other diseases of the circulatory system
CPT/HCPCS: 36415; 83036; 83721; 83876

== ENCOUNTER → 2025-05-08 07:32 | Outpatient (CLI) | payer MEDICARE, OTHER, SELFPAY ==
[2024-06-30 14:01] VITALS: BMI 27.1
--- NOTE | 2025-05-08 07:34 | DI.US.S_ITS ---
PROCEDURE: US CAROTID DOPPLER BI INDICATIONS: hx of carotid stenosis TECHNIQUE: Color and pulse Doppler interrogation was performed of both carotid systems, with image documentation and velocity measurements. COMPARISON: [facility], [place], US CAROTID DOPPLER BI, 07/04/2024, 7:38. FINDINGS: Stenosis calculations are based on SRU (Society of Radiologists in Ultrasound) criteria. Right side: Brachial blood pressure: 86/50 mm Hg. Common carotid artery peak systolic velocity: 99 cm/sec. Internal carotid artery peak systolic velocity: 78 cm/sec. Internal carotid artery end diastolic velocity: 18 cm/sec. External carotid artery peak systolic velocity: 119 cm/sec. ICA/CCA peak systolic ratio: 0.8. Suh scale imaging description: Mild atherosclerotic plaque Percent internal carotid artery stenosis: Less than 50%. Vertebral artery: Flow direction is antegrade. Left side: Brachial blood pressure: 79/49 mm Hg. Common carotid artery peak systolic velocity: 84 cm/sec. Internal carotid artery peak systolic velocity: 77 cm/sec. Internal carotid artery end diastolic velocity: 24 cm/sec. External carotid artery peak systolic velocity: 107 cm/sec. ICA/CCA peak systolic ratio: 0.9. Suh scale imaging description: Mild atherosclerotic plaque Percent internal carotid artery stenosis: Less than 50%. Vertebral artery: Flow direction is antegrade. IMPRESSION: 1. In the right carotid artery, there is less than 50% stenosis based on peak systolic velocity criteria. Findings have not significantly changed. 2. In the left carotid artery, there is less than 50% stenosis based on peak systolic velocity criteria. Findings have not significantly changed. 3. Antegrade vertebral arteries. 4. Relatively low systemic blood pressure at the time of the exam. Approved by: Armand Lockett M.D. on 05/08/2025 at 16:00
== END ==
LOC: US 07:33
PROVIDERS: PCP Family Medicine; Referring Provider Internal Medicine Cardiovascular Disease; Visit Provider Internal Medicine Cardiovascular Disease
DX: I65.23 Occlusion and stenosis of bilateral carotid arteries (principal); Z82.49 Family history of ischemic heart disease and other diseases of the circulatory system
CPT/HCPCS: 93880

== ENCOUNTER → 2025-05-10 16:12 | Outpatient (CLI) | payer MEDICARE, OTHER, SELFPAY ==
[2024-06-30 14:01] VITALS: BMI 27.1
--- NOTE | 2025-05-10 16:14 | DI.MRI.S_ITS ---
PROCEDURE: MR SHOULDER RT WO CON INDICATIONS: Pain In Right Shoulder TECHNIQUE: Noncontrast oblique coronal T2 fast spin echo with fat saturation, oblique sagittal T1 spin echo and T2 fast spin echo with fat saturation, axial T1 spin echo and T2 fast spin echo with fat saturation through the shoulder. COMPARISON: None. FINDINGS: Image quality: Excellent. Rotator cuff: Postsurgical changes from prior rotator cuff tendon repair. There is low-grade partial likely articular sided tearing of the infraspinatus tendon at its distal insertion with fluid signal tracking medially along the central tendinous band to the myotendinous junction. No recurrent full-thickness tearing. Teres minor tendon is intact. Mild subscapularis tendinosis. No significant rotator cuff muscle atrophy. Bones and bursae: Susceptibility artifact is seen at the greater tuberosity. No acute trabecular bone injury. Moderate partial-thickness cartilage irregularity in the glenohumeral joint with small marginal osteophytes. Postsurgical widening of the acromioclavicular joint without recurrent narrowing of the supraspinatus outlet. Small amount of fluid in the subacromial/subdeltoid bursa is expected in the postsurgical setting. Small glenohumeral effusion. Capsule and soft tissues: Diffuse labral degeneration and chronic degenerative tearing. Focal suspected partial intrasubstance tearing of the proximal biceps long head tendon superimposed on chronic tendinosis. Glenohumeral ligaments are intact. IMPRESSION: 1. Postsurgical changes from prior rotator cuff tendon repair. Focal low-grade partial intrasubstance tearing of the infraspinatus tendon at the posterior insertion with fluid tracking medially along the central tendinous band to the mild tendinous junction. No recurrent full-thickness tearing. 2. Mild subscapularis tendinosis. Pair of partial intrasubstance tearing of the proximal biceps long head tendon superimposed on chronic tendinosis. 3. Moderate glenohumeral osteoarthrosis with grade 2-3 chondromalacia. Diffuse labral degeneration and chronic degenerative tearing. 4. Postsurgical widening of the acromioclavicular joint. No recurrent narrowing of the supraspinatus outlet. Approved by: Armand Lockett M.D. on 05/11/2025 at 15:33
--- NOTE | 2025-05-10 16:14 | DI.MRI.S_ITS ---
PROCEDURE: MR CERVICAL SPINE WO CON INDICATIONS: Pain in right shoulder TECHNIQUE: Noncontrast sagittal T1 spin echo and T2 fast spin echo, sagittal STIR, foraminal oblique sagittal T2 fast spin echo, and axial gradient echo or T2 fast spin echo through the cervical spine. COMPARISON: None. FINDINGS: Image quality: Excellent. Alignment and Curvature: Grade 1 anterolisthesis of C4 on C5 and C7 on C8. Bone Marrow: There is solid osseous fusion across the C5-6 and C6-7 disc spaces. No fixation hardware is present. Marrow demonstrates normal overall signal. Spinal Cord: Visualized spinal cord has normal size and signal. No cerebellar tonsillar herniation. Paraspinous Soft Tissues: No paravertebral masses. Prevertebral soft tissues are normal in thickness. C2-C3: Disc desiccation and mild bilateral uncovertebral joint and facet hypertrophy, which result in mild narrowing of the bilateral neural foramina without significant spinal canal stenosis. C3-C4: Disc desiccation and mild posterior disc-osteophyte complex as well as bilateral uncovertebral joint and facet hypertrophy. Findings result in moderate to severe left and moderate right neural foraminal narrowing as well as mild narrowing of the spinal canal. C4-C5: Disc desiccation and posterior disc-osteophyte complex as well as bilateral uncovertebral joint and facet hypertrophy. Findings result in mild narrowing of the spinal canal as well as moderate to severe bilateral neural foraminal narrowing. C5-C6: Osseous fusion across the disc space. Mild left neural foraminal narrowing without significant right neural foraminal narrowing. No spinal canal stenosis. C6-C7: Osseous fusion across the disc space. Bilateral uncovertebral joint and facet hypertrophy. Findings result in moderate to severe left neural foraminal narrowing and mild right neural foraminal narrowing without significant spinal canal stenosis. C7-T1: Disc desiccation and posterior disc-osteophyte complex as well as bilateral uncovertebral joint and facet hypertrophy. Findings result in mild narrowing of the spinal canal as well as moderate bilateral neural foraminal narrowing. IMPRESSION: 1. Multilevel degenerative disc disease, facet hypertrophy the common uncovertebral joint hypertrophy as described in the body of the report. Solid osseous fusion across the C5-6 and C6-7 disc spaces. 2. No high-grade spinal canal stenosis. 3. Multilevel neural foraminal narrowing, high-grade at the C3-4 and C6-7 levels on the left and at the C4-5 level bilaterally. Approved by: Armand Lockett M.D. on 05/11/2025 at 15:44
--- NOTE | 2025-05-10 16:14 | DI.MG.S_ITS ---
MM screening mammo BI: 05/10/2025. BI-RADS: 0 CLINICAL: 74-year old female for bilateral screening mammogram. Tyrer-Cuzick lifetime risk of 5.9%. No personal or first-degree family history of breast cancer. Current reported family history of breast cancer: paternal grandmother. PRIOR EXAMS 04/11/2024, 02/26/2023, 02/19/2022, 11/08/2020, MAMMOGRAPHY TECHNIQUE: 2D and 3D (tomosynthesis) digital mammographic views obtained, with additional images as needed for full coverage. Current study was also evaluated with a Computer Aided Detection (CAD) system. DENSITY B. There are scattered areas of fibroglandular density. MAMMOGRAPHY FINDINGS Right: No suspicious mass, asymmetry, microcalcification, or other abnormality seen. Left: MLO only, Upper, Posterior depth: Asymmetry needing additional imaging evaluation. IMPRESSION: Right * No evidence of malignancy. Left (Asymmetry): MLO only, Upper, Posterior depth * Incomplete - asymmetry needing additional imaging evaluation. RECOMMENDATIONS Left: MLO only, Upper, Posterior depth * Further evaluation with diagnostic mammography and diagnostic ultrasound. Ultrasound to be performed only if needed. OVERALL ASSESSMENT CATEGORY BI-RADS-0: Incomplete - Need Additional Imaging Evaluation. ELECTRONICALLY SIGNED: Lorraine Durham M.D. on 05/11/2025 at 01:12:36 AM PT Interpreting Station ID: [id number]
== END ==
LOC: MAMMO 16:13
PROVIDERS: PCP Family Medicine; Referring Provider Family Medicine; Visit Provider Family Medicine
DX: Z12.31 Encounter for screening mammogram for malignant neoplasm of breast (principal); R92.8 Other abnormal and inconclusive findings on diagnostic imaging of breast; M75.111 Incomplete rotator cuff tear or rupture of right shoulder, not specified as traumatic; S46.111A Strain of muscle, fascia and tendon of long head of biceps, right arm, initial encounter; M19.011 Primary osteoarthritis, right shoulder; M94.211 Chondromalacia, right shoulder; M50.31 Other cervical disc degeneration, high cervical region; M47.812 Spondylosis without myelopathy or radiculopathy, cervical region; M48.02 Spinal stenosis, cervical region; M43.22 Fusion of spine, cervical region; M50.33 Other cervical disc degeneration, cervicothoracic region; M47.813 Spondylosis without myelopathy or radiculopathy, cervicothoracic region; M48.03 Spinal stenosis, cervicothoracic region; G89.29 Other chronic pain; Z80.3 Family history of malignant neoplasm of breast
CPT/HCPCS: 72141; 73221; 77063; 77067

== ENCOUNTER → 2025-07-25 06:55 | Outpatient (CLI) | payer MEDICARE, OTHER, SELFPAY ==
[2024-06-30 14:01] VITALS: BMI 27.1
[2025-07-25 08:11] LABS: Alanine Aminotransferase 20 IU/L (<35); Albumin 4.1 g/dL (3.5-5.0); Albumin Globulin Ratio 1.9 (1.0-2.8); Alkaline Phosphatase 63 U/L (38-126); Blood Urea Nitrogen 12 mg/dL (7-17); Calcium 9.2 mg/dL (8.4-10.2); Carbon Dioxide 26 mmol/L (22-32); Chloride 105 mmol/L (98-107); Estimated Glomerular Filt Rate > 60 mL/min (>60); Globulin 2.2 g/dL (1.7-4.1); Glucose 91 mg/dL (70-99); HEMOLYSIS < 15 (0-50); Potassium 4.2 mmol/L (3.4-5.1); Sodium 137 mmol/L (137-145); Total Protein 6.3 g/dL (6.3-8.2)
[2025-07-26 09:11] LABS: Insulin Level Total 6.1 uIU/mL (2.6-24.9)
== END ==
PROVIDERS: PCP Family Medicine; Referring Provider Family Medicine; Visit Provider Family Medicine
DX: E78.00 Pure hypercholesterolemia, unspecified (principal); E66.3 Overweight
CPT/HCPCS: 36415; 80053; 80061; 83525; 83704